=== PATIENT | male | born 1935 ===

== ENCOUNTER 2018-03-22 10:30 | Inpatient (IN) | payer MEDICARE, BC ==
[2018-03-22 14:29] VITALS: BMI 26.1
--- NOTE | 2018-03-22 15:35 | CP.CCUPN ---
CCU Subjective - Physician Review Events Since Last Encounter (Free Text): 03/22/18 15:35 The patient was Seen and examined by me at the bedside, Medical records reviewed and Management issues were discussed and formulated with the house staff. Events reviewed 82 Years old Male with PMHx of HTN, HLD, CAD s/p stent on Plavix, paraplegia due to spinal cord injury secondary to a fall many years ago and bladder outlet obstruction with abdominal pain, mainly RUQ and N/Vomiting. Who [place] [facility], he was admitted to the ICU there with Septic shock Patient had CT scan of abdomen and pelvis that show gallstones, wall thickening suspicious for cholecystitis, CBD 10-13mm, sludge or stone in the CBD. 12/19 Underwent Percutanous cholecystotomy tube placement Patient transferred to [facility] for further management of cholangitis and ERCP. Alert and oriented Breathing unlabored, on room air O2 sat 100% on 2L NC. Remains on Vasopressors with Levophed at 2.5 mcg He denies hematemesis, No fever/chills, Abd pain, melena or BRBPR. PSH: Spinal surgery, prostate laser vaporization surgery Allergies: diatrizoate Family Hx: noncontributory Social Hx: (+) smoker, no etoh or illicit drugs ROS: As per HPI 03/21/2018: Nuclear Medicine Hepatobiliary Scan TECHNIQUE: 7.6 mCi of technetium 99m Mebrofenin was administered intravenously. Planar images of the abdomen were obtained at 5 min intervals to 60 mins. Delayed images were also obtained. FINDINGS: There is hepatic uptake but there is no visualization of the gallbladder or common bile duct up to 60 minutes. There is no bowel visualization. Findings are consistent with common duct obstruction IMPRESSION: Nonvisualization of the gallbladder and common duct consistent with common duct obstruction Critical Care Time Spent (in minutes): 45 CCU Objective - Vital Signs / Intake & Output Intake and Output (Last 8hrs): Intake & Output 03/22/18 03/22/18 03/22/18 06:59 14:59 22:59 Weight 162 lb - Physical Exam Physical Exam Limitations: Positive for: Clinical Condition Head: Positive for: Atraumatic, Normocephalic Pupils: Positive for: PERRL Extroacular Muscles: Positive for: EOMI Conjunctiva: Positive for: Normal. Negative for: Injected, Icteric Ears: Positive for: Normal Mouth: Positive for: Moist Mucous Membranes Pharnyx: Positive for: Normal Nose (External): Positive for: Atraumatic Nose (Internal): Positive for: Normal Inspection Neck: Positive for: Normal Range of Motion, Trachea Midline Respiratory/Chest: Positive for: Clear to Auscultation, Good Air Exchange, Decreased Breath Sounds, Rhonchi. Negative for: Respiratory Distress, Accessory Muscle Use, Wheezes, Rales, Retracting Cardiovascular: Positive for: Regular Rate and Rhythm, Normal S1, S2. Negative for: Murmurs, Irregular Rhythm, Tachycardic, Bradycardic Abdomen: Positive for: Tenderness, Distention, Normal Bowel Sounds. Negative for: Peritoneal Signs, Rebound, Guarding Back: Negative for: CVA Tenderness Upper Extremity: Positive for: Normal Inspection, Capillary Refill < 2s. Negative for: Cyanosis, Edema Lower Extremity: Positive for: Normal Inspection, Capillary Refill < 2 s. Negative for: Edema, CALF TENDERNESS Neurological: Positive for: GCS=15, CN II-XII Intact, Speech Normal, Motor Func Grossly Intact, Normal Sensory Function Psychiatric: Positive for: Alert, Oriented x 3 Review of Systems - Review of Systems Systems not reviewed;Unavailable: Unstable Vital Signs - Constitutional Constitutional: Weakness, Malaise. absent: Fever, Chills, Sweats - Cardiovascular Cardiovascular: absent: Chest Pain, Chest Pain at Rest, Chest Pain with Activity , Claudication, Diaphoresis - Respiratory Respiratory: absent: Cough, Dyspnea, Hemoptysis, Dyspnea on Exertion, Wheezing, Snoring - Gastrointestinal Gastrointestinal: Abdominal Pain, Nausea. absent: Hematemesis, Hematochezia, Melena Critical Care Progress Note - Extremities/Vascular Does the Patient have a Central Venous Catheter?: Yes Does the Patient need a Central Venous Catheter?: Yes Does the Patient have a Mireles Catheter?: Yes Does the Patient need a Mireles Catheter?: Yes Assessment/Plan (1) Septic shock Current Visit: Yes Status: Acute Priority: High (2) Cholecystitis Current Visit: Yes Status: Acute Priority: High (3) Cholangitis Current Visit: Yes Status: Acute Priority: High - Assessment and Plan (Free Text) Assessment: Blood culture shows gram negative john. Urine culture, MRSA screen, culture wound , gallbladder fluid culture/smear pending Continue levophed/Vaso for BP support, wean as tolerated Maintain MAP 65-75 Optimize blood pressure and maintain end-organ perfusion IV Meropenem 500 mg IVBP Q 8H IVF hydration with LR at 150 cc/H Monitor urine Output Monitor renal function with basic metabolic panel Strict I&O, daily Wt PRN Tylenol for fevers PRN Dilauded for pain control ID, GI and surgery consult HIDA scan showed non visualization of gallbladder consistent with CBD obstruction Scheduled for ERCP Glycemic control HOB maintained at 30 degrees. Encouraged use of IS Maintain aspiration precautions GI/DVT PPX
--- NOTE | 2018-03-22 16:05 | CP.PCM.CON ---
History of Present Illness - History of Present Illness History of Present Illness: General Surgery Dr. Garcia 82 y/o M w/ PMHx of paraplegia s/o fall and bladder outlet obstruction presented [place] [facility] s/o abd pain, nausea, NBNB vomiting x1day. Pt diagnosed w/ sepsis 2/2 acute cholecystitis and admitted to ICU. Pt poor surgical candidate, requiring pressors for BP support. Pt underwent US-guided ifeoma tube placement by IR on 03/21. Due to continued leukocystosis and concern for ascending cholangitis, pt transferred to [facility] for ERCP. Surgery consulted for acute cholecystitis and ifeoma tube management. Pt S&E @bedside. currently denies CP, SOB, F/C, N/V, abd pain. PMHx: as listed above Meds: reviewed in chart ALL: Diatrizoate Sodium PSHx: Prostate laser vaporization, Back surgeries SHx: denies smoking/EtOH/drugs FHx: noncontributory Review of Systems - Review of Systems All systems: reviewed and no additional remarkable complaints except (see HPI) Past Patient History - Past Medical History & Family History Past Medical History?: Yes - Past Social History Smoking Status: Never Smoked - CARDIAC Hx Cardiac Disorders: Yes Hx Hypertension: Yes Hx Pacemaker: No - PULMONARY Hx Respiratory Disorders: No - NEUROLOGICAL Hx Paralysis: No - HEENT Hx HEENT Problems: No - RENAL Hx Chronic Kidney Disease: No - ENDOCRINE/METABOLIC Hx Endocrine Disorders: No - HEMATOLOGICAL/ONCOLOGICAL Hx Blood Transfusions: No Hx Blood Transfusion Reaction: No - INTEGUMENTARY Hx Dermatological Problems: No - MUSCULOSKELETAL/RHEUMATOLOGICAL Hx Musculoskeletal Disorders: Yes (SPINAL CORD INJURY) - GASTROINTESTINAL Hx Gastrointestinal Disorders: No - GENITOURINARY/GYNECOLOGICAL Hx Genitourinary Disorders: Yes Hx Urinary Tract Infection: Yes (2/2 urinary retention ) - PSYCHIATRIC Hx Emotional Abuse: No Hx Physical Abuse: No Hx Substance Use: No - SURGICAL HISTORY Hx Musculoskeletal Surgery: Yes (spinal column surgery) - ANESTHESIA Hx Anesthesia: Yes Hx Anesthesia Reactions: No Hx Malignant Hyperthermia: No Meds Allergies/Adverse Reactions: Allergies Allergy/AdvReac Type Severity Reaction Status Date / Time diatrizoate sodium Allergy Intermediate VERIFY ON Verified 06/01/17 09:50 [From Hypaque] ADM Physical Exam - Constitutional Appears: Non-toxic, No Acute Distress - Head Exam Head Exam: NORMAL INSPECTION - Eye Exam Eye Exam: Scleral icterus - ENT Exam ENT Exam: Mucous Membranes Moist - Respiratory Exam Respiratory Exam: NORMAL BREATHING PATTERN. absent: Accessory Muscle Use, Respiratory Distress - Cardiovascular Exam Cardiovascular Exam: REGULAR RHYTHM. absent: Bradycardia, Tachycardia - GI/Abdominal Exam GI & Abdominal Exam: Distended (obese), Soft. absent: Firm, Guarding, Rigid, Tenderness Additional comments: ifeoma tube in place, to gravity - Exam Additional comments: hardwick in place; draining tea-colored urine - Extremities Exam Extremities exam: Positive for: normal inspection - Neurological Exam Neurological exam: Alert, Oriented x3 - Psychiatric Exam Psychiatric exam: Normal Affect, Normal Mood - Skin Skin Exam: Dry, Intact, Warm Additional comments: jaundice Results - Imaging and Cardiology CT scan - abdomen Status: Image reviewed by me, Report reviewed by me US - abdomen Status: Image reviewed by me, Report reviewed by me HIDA Status: Image reviewed by me, Report reviewed by me Assessment & Plan - Assessment and Plan (Free Text) Assessment: 82 y/o M w/ sepsis 2/2 acute cholecytitis vs ascending cholangitis - NPO/IVF - IV Abx - titrate pressors to maintain MAP>65 - pain management - monitor drain output - f/u GI recs --> plan for ERCP Tuesday - cont medical management - no surgical intervention at this time. - surgery will continue to follow Pt discussed w/ Dr. Jose Hammond DO PGY3
[2018-03-22] MEDS ORDERED: HYDROmorphone 1 mg/ml ISec IVP PRN (16:15)
[2018-03-22] MEDS ORDERED: Lactated Ringer's 1,000 ML IV SCH (16:15)
[2018-03-22] MEDS ORDERED: Potassium Ch 20mEq in D5-1/2NS 1,000 ML IV SCH (16:45)
--- NOTE | 2018-03-22 16:49 | CP.PCM.HP ---
History of Present Illness - History of Present Illness History of Present Illness: CC: nausea and vomiting HPI: 82 year old paraplegic man (spinal cord injury), PMH CAD stents 7 years ago , HTN, hyperlipidemia presents from [facility] for ERCP, after admitted for septic shock 2/2 acute cholangitis and acute cholecystitis, currently on levophed 9 mcg R IJ CVC, cholecystostomy tube placed 2 days ago 260cc out today , on Merrem, blood cultures + gram neg rods, no sensitivities back. GI and Surgery evaluations appreciated. Pt states nausea was acute, constant, moderate , and associated with nbnb emesis at time of onset. T 98 HR 60 BP 122/47 RR 26 O2 97% on 2L NC. Continue management in ICU, plan for ERCP. Discussed with GI, patient is significantly improved clinically, however will require further stabilization prior to ERCP. Family at bedside, all questions answered. Labs today at [place]: WBC 27K no bands, trending down, platelets 91, BUN 28, tbili 3.5 trending down, AST ALT 401/560 trending down, ALP 121. Present on Admission - Present on Admission Any Indicators Present on Admission: No Past Patient History - Past Medical History & Family History Past Medical History?: Yes - Past Social History Smoking Status: Never Smoked - CARDIAC Hx Cardiac Disorders: Yes Hx Hypertension: Yes Hx Pacemaker: No - PULMONARY Hx Respiratory Disorders: No - NEUROLOGICAL Hx Paralysis: No - HEENT Hx HEENT Problems: No - RENAL Hx Chronic Kidney Disease: No - ENDOCRINE/METABOLIC Hx Endocrine Disorders: No - HEMATOLOGICAL/ONCOLOGICAL Hx Blood Transfusions: No Hx Blood Transfusion Reaction: No - INTEGUMENTARY Hx Dermatological Problems: No - MUSCULOSKELETAL/RHEUMATOLOGICAL Hx Musculoskeletal Disorders: Yes (SPINAL CORD INJURY) - GASTROINTESTINAL Hx Gastrointestinal Disorders: No - GENITOURINARY/GYNECOLOGICAL Hx Genitourinary Disorders: Yes Hx Urinary Tract Infection: Yes (2/2 urinary retention ) - PSYCHIATRIC Hx Emotional Abuse: No Hx Physical Abuse: No Hx Substance Use: No - SURGICAL HISTORY Hx Musculoskeletal Surgery: Yes (spinal column surgery) - ANESTHESIA Hx Anesthesia: Yes Hx Anesthesia Reactions: No Hx Malignant Hyperthermia: No Meds Allergies/Adverse Reactions: Allergies Allergy/AdvReac Type Severity Reaction Status Date / Time diatrizoate sodium Allergy Intermediate VERIFY ON Verified 06/01/17 09:50 [From Hypaque] ADM Physical Exam - Constitutional Appears: Non-toxic, No Acute Distress, Older Than Stated Age - Head Exam Head Exam: ATRAUMATIC, NORMOCEPHALIC - Eye Exam Eye Exam: EOMI, Normal appearance, PERRL - ENT Exam ENT Exam: Mucous Membranes Moist, Normal Exam - Respiratory Exam Respiratory Exam: Clear to Auscultation Bilateral, NORMAL BREATHING PATTERN - Cardiovascular Exam Cardiovascular Exam: REGULAR RHYTHM, +S1, +S2 - GI/Abdominal Exam GI & Abdominal Exam: Normal Bowel Sounds, Soft. absent: Organomegaly, Tenderness - Extremities Exam Extremities exam: Positive for: normal capillary refill, pedal pulses present - Back Exam Back exam: NORMAL INSPECTION. absent: rash noted - Neurological Exam Neurological exam: Alert, Oriented x3 - Psychiatric Exam Psychiatric exam: Agitated, Normal Mood - Skin Skin Exam: Dry, Normal Color, Warm Results - Vital Signs Recent Vital Signs: Last Vital Signs Temp 98.0 F 03/22/18 16:00 Pulse 60 03/22/18 16:00 Resp 26 H 03/22/18 16:00 BP 122/45 L 03/22/18 16:00 Pulse Ox 97 03/22/18 16:00 Assessment & Plan - Assessment and Plan (Free Text) Plan: 82 year old paraplegic man (spinal cord injury), PMH CAD stents 7 years ago, HTN , hyperlipidemia presents from [facility] for ERCP, after admitted for septic shock 2/2 acute cholangitis and acute cholecystitis, currently on levophed 9 mcg R IJ CVC, cholecystostomy tube placed 2 days ago 260cc out today , on Merrem, blood cultures + gram neg rods, no sensitivities back. GI and Surgery evaluations appreciated. Pt states nausea was acute, constant, moderate , and associated with nbnb emesis at time of onset. T 98 HR 60 BP 122/47 RR 26 O2 97% on 2L NC. Continue management in ICU, plan for ERCP. Discussed with GI, patient is significantly improved clinically, however will require further stabilization prior to ERCP. Family at bedside, all questions answered. Labs 03/22 at [place]: WBC 27K no bands, trending down, platelets 91, BUN 28, tbili 3.5 trending down, AST ALT 401/560 trending down, ALP 121. Septic Shock Acute Cholangitis Acute Cholecystitis Clinically appears +mild weakness, awake, alert, answering all questions appropriately On Levophed 9 mcg via R IJ CVC, will attempt to titrate down today cholecystostomy tube placed 2 days ago 260cc out today Continue Merrem blood cultures + gram neg rods, no sensitivities yet GI Dr. Sellers and Surgery evaluations appreciated. Plan for ERCP once more HD stable, likely tomorrow or Tuesday. CAD HLD holding Plavix for NPO on Heparin 5000 q8
[2018-03-22] MEDS ORDERED: Hydrocortisone- 100 MG in Sodium Chloride 0.9% 100 ML IV SCH (17:00)
[2018-03-22] MEDS: Meropenem 500 MG in Sodium Chloride 0.9% 100 ML IVPB SCH (17:51)
[2018-03-22] MEDS: Metoprolol 1 mg/ml Inj IVP SCH ×2 (17:58→23:58)
[2018-03-22 18:52] LABS: VENOUS BLOOD GAS PCO2 36 mmHg (40-60); VENOUS BLOOD GAS PO2 43 mm/Hg (30-55)
[2018-03-22 19:10] LABS: BASO % 0.1 % (0.0-2.0); EOS # 0.2 K/uL (0.0-0.7); EOS % 0.6 % (0.0-4.0); HEMOGLOBIN 10.5 g/dL (12.0-18.0); LYMPH # 1.2 K/uL (1.0-4.3); LYMPH % 4.4 % (20.0-40.0); MEAN CELL VOLUME 93.4 fl (80.0-94.0); MEAN CORPUSCULAR HEMOGLOBIN 30.8 pg (27.0-31.0); MONO # 0.9 K/uL (0.0-0.8); MONO % 3.3 % (0.0-10.0); NEUT # 25.5 K/uL (1.8-7.0); NEUT % 91.6 % (50.0-75.0); PLATELET COUNT 76 K/uL (130-400); RBC 3.42 Mil/uL (4.40-5.90); WHITE BLOOD COUNT 27.9 K/uL (4.8-10.8)
[2018-03-22 19:32] LABS: ALB/GLOB RATIO 0.9 (1.0-2.1); ALBUMIN 2.4 g/dL (3.5-5.0); ALT/SGPT 416 U/L (21-72); AST/SGOT 232 U/L (17-59); BLOOD UREA NITROGEN 30 mg/dl (9-20); CALCIUM 7.8 mg/dL (8.4-10.2); GFR NON-AFRICAN AMERICAN > 60
[2018-03-22] MEDS: Potassium CL 10 MEQ/50 ML 50 ML IVPB SCH ×3 (20:03→22:40)
--- NOTE | 2018-03-22 20:03 | CP.PCM.PCO ---
Physician Communication Note - Physician Communication Note Physician Communication Note: Sub Q Heparin held because of Progressive decreasing platelets now 76.
[2018-03-22 21:45] LABS: BANDS 5 % (0-2); EOSINOPHIL 1 % (0-7); LYMPHOCYTE 8 % (20-50); MONOCYTE 5 % (0-10); NEUTROPHIL 81 % (42-75); PLATELET ESTIMATE DECREASED (NORMAL); TOTAL CELLS COUNTED 100
[2018-03-22 21:46] LABS: ANISOCYTOSIS MODERATE; POIKILOCYTOSIS SLIGHT; POLYCHROMIC SLIGHT; TARGET CELLS SLIGHT
[2018-03-22 21:47] LABS: TOXIC GRANULATION PRESENT
[2018-03-22] MEDS: Potassium Ch 20mEq in D5-1/2NS 1,000 ML IV SCH (22:45)
[2018-03-23] MEDS: Meropenem 1 GM in Sodium Chloride 0.9% 100 ML IVPB SCH ×3 (00:07→17:34)
[2018-03-23] MEDS: Potassium Ch 20mEq in D5-1/2NS 1,000 ML IV SCH ×3 (04:15→19:30)
[2018-03-23 05:15] LABS: EOS # 0.6 K/uL (0.0-0.7); EOS % 1.8 % (0.0-4.0); HEMOGLOBIN 10.4 g/dL (12.0-18.0); LYMPH # 0.9 K/uL (1.0-4.3); LYMPH % 2.6 % (20.0-40.0); MEAN CELL VOLUME 92.4 fl (80.0-94.0); MEAN CORPUSCULAR HEMOGLOBIN 30.7 pg (27.0-31.0); MEAN CORPUSCULAR HGB CONC 33.2 g/dL (33.0-37.0); MEAN PLATELET VOLUME 10.7 fl (7.2-11.7); MONO # 0.7 K/uL (0.0-0.8); NEUT # 31.2 K/uL (1.8-7.0); NEUT % 93.6 % (50.0-75.0); PLATELET COUNT 67 K/uL (130-400); RBC 3.39 Mil/uL (4.40-5.90); RED CELL DISTRIBUTION WIDTH 14.9 % (11.5-14.5); WHITE BLOOD COUNT 33.3 K/uL (4.8-10.8)
[2018-03-23 05:54] LABS: BANDS 7 % (0-2); LYMPHOCYTE 3 % (20-50); METAMYELOCYTE 2 % (0-0); MONOCYTE 2 % (0-10); NEUTROPHIL 86 % (42-75); TOTAL CELLS COUNTED 100
[2018-03-23 05:55] LABS: ANISOCYTOSIS SLIGHT; PLATELET ESTIMATE DECREASED (NORMAL)
[2018-03-23 07:00] LABS: ALB/GLOB RATIO 0.9 (1.0-2.1); ALBUMIN 2.4 g/dL (3.5-5.0); ALT/SGPT 356 U/L (21-72); AST/SGOT 158 U/L (17-59); BLOOD UREA NITROGEN 29 mg/dl (9-20); CALCIUM 7.5 mg/dL (8.4-10.2); GFR NON-AFRICAN AMERICAN > 60
--- NOTE | 2018-03-23 07:53 | CP.PCM.PN ---
Subjective - Date & Time of Evaluation Date of Evaluation: 03/23/18 Time of Evaluation: 07:51 - Subjective Subjective: General Surgery - Dr. Garcia Pt S&E. Pt had episode of bradycardia after being given Metoprolol overnight, otherwise no acute events. HR currently stable in upper 60s. MAPs in 90s currently, still on 2.5mcg Levophed. Pt complains of RUQ abdominal pain but improving. Ifeoma tube in place with serosanguinous drainage. Pt denies any Nausea/Vomiting, Fevers/Chills. Objective - Vital Signs/Intake and Output Vital Signs (last 24 hours): Temp Pulse Resp BP Pulse Ox 98.2 F 60 18 127/65 97 03/23/18 05:00 03/23/18 05:58 03/23/18 05:58 03/23/18 05:58 03/23/18 05:58 Intake and Output: 03/23/18 03/23/18 06:59 18:59 Intake Total 2522 Output Total 430 Balance 2092 - Medications Medications: Current Medications Acetaminophen (Tylenol 325mg Tab) 650 mg PO Q8 PRN PRN Reason: Fever >100.4 F Albuterol/Ipratropium (Duoneb 3 Mg/0.5 Mg (3 Ml) Ud) 3 ml INH RQID PRN PRN Reason: Shortness of Breath Hydrocortisone Sodium Succinate (Solu-Cortef) 100 mg IV Q8 [facility] Last Admin: 03/23/18 00:02 Dose: 100 mg Hydromorphone HCl (Dilaudid) 0.5 mg IVP Q4 PRN PRN Reason: Pain, moderate (4-7) Norepinephrine Bitartrate 4 mg (/ Dextrose) 254 mls @ 9.52 mls/hr IV .Q24H [facility] ; 2.5 MCG/MIN PRN Reason: Protocol Last Admin: 03/22/18 20:25 Dose: 2.49 mcg/min, 9.48 mls/hr Meropenem 500 mg/ Sodium (Chloride) 100 mls @ 100 mls/hr IVPB Q8 [facility] PRN Reason: Protocol Last Admin: 03/22/18 17:51 Dose: 100 mls/hr Potassium Chloride/Dextrose/Sod Cl (Potassium Chl 20 Meq In D5-1/2ns) 1,000 mls @ 150 mls/hr IV .Q6H40M [facility] Stop: 03/23/18 16:43 Last Admin: 03/23/18 04:15 Dose: 150 mls/hr Meropenem 1 gm/ Sodium (Chloride) 100 mls @ 100 mls/hr IVPB Q8 [facility] PRN Reason: Protocol Last Admin: 03/23/18 00:07 Dose: 100 mls/hr Metoprolol Tartrate (Lopressor) 5 mg IVP Q8 [facility] Last Admin: 03/22/18 23:58 Dose: 5 mg Ondansetron HCl (Zofran Inj) 4 mg IVP Q6 PRN PRN Reason: Nausea/Vomiting Pantoprazole Sodium (Protonix Inj) 40 mg IVP DAILY [facility] Last Admin: 03/22/18 18:08 Dose: Not Given - Labs Labs: 03/23/18 04:20 03/23/18 04:20 - Constitutional Appears: No Acute Distress - Head Exam Head Exam: ATRAUMATIC, NORMAL INSPECTION, NORMOCEPHALIC - Eye Exam Eye Exam: Normal appearance - Respiratory Exam Respiratory Exam: NORMAL BREATHING PATTERN. absent: Respiratory Distress - Cardiovascular Exam Cardiovascular Exam: REGULAR RHYTHM - GI/Abdominal Exam GI & Abdominal Exam: Distended (mild), Soft, Tenderness (mild ttp RUQ). absent : Firm, Guarding, Rigid, Rebound Additional comments: ifeoma tube in place with serosanguinous drainage - Neurological Exam Neurological Exam: Alert, Oriented x3 - Psychiatric Exam Psychiatric exam: Normal Affect, Normal Mood - Skin Skin Exam: Dry, Intact Assessment and Plan - Assessment and Plan (Free Text) Assessment: 82M w/ acute cholecytitis, concern for ascending cholangitis - Continue NPO/IVF, may have ice chips - Continue IV Abx - Wean off Levophed, maintain MAP>65 - Continue pain control prn - Monitor drain output - GI plan for ERCP Tuesday - Will follow with you, no plans for surgery at this time DW Dr. Jose Lara PGY4
[2018-03-23] MEDS: Meropenem 500 MG in Sodium Chloride 0.9% 100 ML IVPB SCH (08:24)
[2018-03-23] MEDS: Albuterol-Ipratrop 3 mg / 0.5 (3 ml) UD INH PRN (08:30)
--- NOTE | 2018-03-23 10:23 | CP.PCM.PN ---
Subjective - Date & Time of Evaluation Date of Evaluation: 03/23/18 Time of Evaluation: 10:21 - Subjective Subjective: clinically improving this morning decreased pressor requirement HD stable Plt trending down, hold heparin micro +gram pos cocci and gram neg rods, added vanco discontinue steroids Objective - Vital Signs/Intake and Output Vital Signs (last 24 hours): Temp Pulse Resp BP Pulse Ox 98.2 F 60 18 127/65 97 03/23/18 05:00 03/23/18 08:30 03/23/18 05:58 03/23/18 05:58 03/23/18 05:58 Intake and Output: 03/23/18 03/23/18 06:59 18:59 Intake Total 2522 Output Total 430 Balance 2092 - Medications Medications: Current Medications Acetaminophen (Tylenol 325mg Tab) 650 mg PO Q8 PRN PRN Reason: Fever >100.4 F Albuterol/Ipratropium (Duoneb 3 Mg/0.5 Mg (3 Ml) Ud) 3 ml INH RQID PRN PRN Reason: Shortness of Breath Last Admin: 03/23/18 08:30 Dose: 3 ml Hydromorphone HCl (Dilaudid) 0.5 mg IVP Q4 PRN PRN Reason: Pain, moderate (4-7) Norepinephrine Bitartrate 4 mg (/ Dextrose) 254 mls @ 9.52 mls/hr IV .Q24H [facility] ; 2.5 MCG/MIN PRN Reason: Protocol Last Admin: 03/22/18 20:25 Dose: 2.49 mcg/min, 9.48 mls/hr Potassium Chloride/Dextrose/Sod Cl (Potassium Chl 20 Meq In D5-1/2ns) 1,000 mls @ 150 mls/hr IV .Q6H40M [facility] Stop: 03/23/18 16:43 Last Admin: 03/23/18 04:15 Dose: 150 mls/hr Meropenem 1 gm/ Sodium (Chloride) 100 mls @ 100 mls/hr IVPB Q8 [facility] PRN Reason: Protocol Last Admin: 03/23/18 08:17 Dose: 100 mls/hr Vancomycin HCl 1 gm/ Sodium (Chloride) 250 mls @ 166.667 mls/hr IVPB DAILY [facility] PRN Reason: Protocol Ondansetron HCl (Zofran Inj) 4 mg IVP Q6 PRN PRN Reason: Nausea/Vomiting Pantoprazole Sodium (Protonix Inj) 40 mg IVP DAILY [facility] Last Admin: 03/23/18 08:25 Dose: 40 mg - Labs Labs: 03/23/18 04:20 03/23/18 04:20 - Constitutional Appears: Non-toxic, No Acute Distress - Head Exam Head Exam: ATRAUMATIC, NORMOCEPHALIC - Eye Exam Eye Exam: EOMI, Normal appearance, PERRL - ENT Exam ENT Exam: Mucous Membranes Moist, Normal Exam - Respiratory Exam Respiratory Exam: Clear to Ausculation Bilateral, NORMAL BREATHING PATTERN. absent: Wheezes - Cardiovascular Exam Cardiovascular Exam: RRR, +S1, +S2 - GI/Abdominal Exam GI & Abdominal Exam: Soft, Normal Bowel Sounds. absent: Organomegaly - Extremities Exam Extremities Exam: Normal Inspection. absent: Calf Tenderness - Back Exam Back Exam: NORMAL INSPECTION. absent: tenderness - Neurological Exam Neurological Exam: Alert, Awake - Psychiatric Exam Psychiatric exam: Normal Affect, Normal Mood - Skin Skin Exam: Dry, Warm Assessment and Plan - Assessment and Plan (Free Text) Plan: 82 year old paraplegic man (spinal cord injury), PMH CAD stents 7 years ago, HTN , hyperlipidemia presents from [facility] for ERCP, after admitted for septic shock 2/2 acute cholangitis and acute cholecystitis, currently on levophed 9 mcg R IJ CVC, cholecystostomy tube placed 2 days ago 260cc out today , on Merrem, blood cultures + gram neg rods, no sensitivities back. GI and Surgery evaluations appreciated. Pt states nausea was acute, constant, moderate , and associated with nbnb emesis at time of onset. T 98 HR 60 BP 122/47 RR 26 O2 97% on 2L NC. Continue management in ICU, plan for ERCP. Discussed with GI, patient is significantly improved clinically, however will require further stabilization prior to ERCP. Family at bedside, all questions answered. Septic Shock Acute Cholangitis Acute Cholecystitis Clinically appears improving +mild weakness, awake, alert, answering all questions appropriately On Levophed at 2 mcg from 9 yesterday, hopefully titrate off today cholecystostomy tube placed 3 days ago Continue Merrem 1 gm blood cultures + gram neg rods AND gram positive cocci, ADD VANCOMYCIN today GI Dr. Sellers and Surgery evaluations appreciated. Plan for ERCP once more HD stable, likely tomorrow pt type and cross 1 unit NPO on maintenance fluids Leukocytosis w L shift secondary to stress dose steroids for sepsis d/c hydrocortisone, no further indication Thrombocytopenia possibly secondary to meds vs sequestration vs sepsis monitor transfuse if <49 tomorrow prior to ERCP discussed with GI Elevated transaminases Hyperbilirubinemia trending down, improving CAD HLD holding Plavix for NPO no heparin for DVT 2/2 thrombocytopenia
--- NOTE | 2018-03-23 10:45 | CP.CCUPN ---
<Tj Perez - Last Filed: 03/23/18 14:39> CCU Subjective - Physician Review Subjective (Free Text): Patient seen and examined this morning at bed side during rounding, transient episode of bradycardia last night after being given Metoprolol overnight, otherwise no acute events. HR currently stable in upper 60s. still on 2.5mcg Levophed. Pt complains of RUQ abdominal pain but less than yesterday. Margareth tube in place with serosanguinous drainage. Pt denies any Nausea/ Vomiting. Afebrile. For ERCP likely tomorrow CCU Objective - Vital Signs / Intake & Output Vital Signs (Last 4 hours): Vital Signs Temp Pulse Resp BP Pulse Ox 03/23/18 10:00 55 L 17 117/48 L 97 03/23/18 09:00 63 15 113/55 L 98 03/23/18 08:30 60 03/23/18 08:00 97.9 F 64 14 126/57 L 97 Intake and Output (Last 8hrs): Intake & Output 03/22/18 03/23/18 03/23/18 22:59 06:59 14:59 Intake Total 1724 1548 750 Output Total 350 430 200 Balance 1374 1118 550 Intake: IV 1424 1350 600 Intake, Piggyback 250 198 150 Oral 50 0 Output: Drainage 50 30 Right Upper Abdomen 50 30 Urine 300 400 200 Urethral (Mireles) 300 400 200 Other: # Bowel Movements 1 1 1 - Physical Exam Head: Positive for: Atraumatic, Normocephalic Pupils: Positive for: PERRL Extroacular Muscles: Positive for: EOMI Conjunctiva: Positive for: Normal. Negative for: Injected, Icteric Ears: Positive for: Normal Mouth: Positive for: Moist Mucous Membranes Pharnyx: Positive for: Normal Nose (External): Positive for: Atraumatic Nose (Internal): Positive for: Normal Inspection Neck: Positive for: Normal Range of Motion, Trachea Midline Respiratory/Chest: Positive for: Clear to Auscultation, Good Air Exchange, Decreased Breath Sounds, Rhonchi. Negative for: Respiratory Distress, Accessory Muscle Use, Wheezes, Rales, Retracting Cardiovascular: Positive for: Regular Rate and Rhythm, Normal S1, S2. Negative for: Murmurs, Irregular Rhythm, Tachycardic, Bradycardic Abdomen: Positive for: Tenderness, Distention, Normal Bowel Sounds. Negative for: Peritoneal Signs, Rebound, Guarding Back: Negative for: CVA Tenderness Upper Extremity: Positive for: Normal Inspection, Capillary Refill < 2s. Negative for: Cyanosis, Edema Lower Extremity: Positive for: Normal Inspection, Capillary Refill < 2 s. Negative for: Edema, CALF TENDERNESS Neurological: Positive for: GCS=15, CN II-XII Intact, Speech Normal, Motor Func Grossly Intact, Normal Sensory Function Psychiatric: Positive for: Alert, Oriented x 3 - Medications Active Medications: Active Medications Generic Name Dose Route Start Last Admin Trade Name Freq PRN Reason Stop Dose Admin Acetaminophen 650 mg 03/22/18 16:24 Tylenol 325mg Tab PO Q8 PRN Fever >100.4 F Albuterol/Ipratropium 3 ml 03/22/18 16:25 03/23/18 08:30 Duoneb 3 Mg/0.5 Mg (3 Ml) Ud INH 3 ml RQID PRN Administration Shortness of Breath Hydromorphone HCl 0.5 mg 03/22/18 16:15 Dilaudid IVP Q4 PRN Pain, moderate (4-7) Norepinephrine Bitartrate 4 mg 254 mls @ 9.52 mls/hr 03/22/18 16:30 03/22/18 20:25 / Dextrose IV 2.49 mcg/min .Q24H MARQUIS 9.48 mls/hr Protocol Administration 2.5 MCG/MIN Potassium Chloride/Dextrose/Sod Cl 1,000 mls @ 150 mls/hr 03/22/18 18:56 04:15 Potassium Chl 20 Meq In D5-1/2ns IV 03/23/18 16:43 150 mls/hr .Q6H40M MARQUIS Administration Meropenem 1 gm/ Sodium 100 mls @ 100 mls/hr 03/23/18 01:00 03/23/18 08:17 Chloride IVPB 100 mls/hr Q8 MARQUIS Administration Protocol Vancomycin HCl 1 gm/ Sodium 250 mls @ 166.667 mls/hr 03/23/18 10:15 Chloride IVPB DAILY MARQUIS Protocol Ondansetron HCl 4 mg 03/22/18 16:25 Zofran Inj IVP Q6 PRN Nausea/Vomiting Pantoprazole Sodium 40 mg 03/22/18 16:15 03/23/18 08:25 Protonix Inj IVP 40 mg DAILY MARQUIS Administration - Patient Studies Lab Studies: Lab Studies 03/23/18 03/23/18 03/22/18 Range/Units 04:20 04:20 19:04 WBC 33.3 H (4.8-10.8) K/uL RBC 3.39 L (4.40-5.90) Mil/uL Hgb 10.4 L (12.0-18.0) g/dL Hct 31.3 L (35.0-51.0) % MCV 92.4 (80.0-94.0) fl MCH 30.7 (27.0-31.0) pg MCHC 33.2 (33.0-37.0) g/dL RDW 14.9 H (11.5-14.5) % Plt Count 67 L (130-400) K/uL MPV 10.7 (7.2-11.7) fl Neut % (Auto) 93.6 H (50.0-75.0) % Lymph % (Auto) 2.6 L (20.0-40.0) % [place] % (Auto) 2.0 (0.0-10.0) % Eos % (Auto) 1.8 (0.0-4.0) % Baso % (Auto) 0.0 (0.0-2.0) % Neut # (Auto) 31.2 H (1.8-7.0) K/uL Lymph # (Auto) 0.9 L (1.0-4.3) K/uL [place] # (Auto) 0.7 (0.0-0.8) K/uL Eos # (Auto) 0.6 (0.0-0.7) K/uL Baso # (Auto) 0.0 (0.0-0.2) K/uL Neutrophils % (Manual) 86 H (42-75) % Band Neutrophils % 7 H (0-2) % Lymphocytes % (Manual) 3 L (20-50) % Monocytes % (Manual) 2 (0-10) % Eosinophils % (Manual) (0-7) % Metamyelocytes % 2 H (0-0) % Toxic Granulation Platelet Estimate Decreased L (NORMAL) Polychromasia Poikilocytosis (manual Anisocytosis (manual) Slight Target Cells pO2 (30-55) mm/Hg VBG pH (7.32-7.43) VBG pCO2 (40-60) mmHg VBG HCO3 mmol/L VBG Total CO2 (22-28) mmol/L VBG O2 Sat (Calc) (40-65) % VBG Base Excess (0.0-2.0) mmol/L VBG Potassium (3.6-5.2) mmol/L Sodium 140 140 (132-148) mmol/L Chloride 111 H 112 H (98-107) mmol/L Glucose (75-110) mg/dL Lactate (0.7-2.1) mmol/L FiO2 % Potassium 3.9 3.3 L (3.6-5.0) MMOL/L Carbon Dioxide 23 23 (22-30) mmol/L Anion Gap 10 8 L (10-20) BUN 29 H 30 H (9-20) mg/dl Creatinine 0.6 L 0.7 L (0.8-1.5) mg/dl Est GFR ( Amer) > 60 > 60 Est GFR (Non-Af Amer) > 60 > 60 Random Glucose 194 H 76 (75-110) mg/dL Calcium 7.5 L 7.8 L (8.4-10.2) mg/dL Phosphorus 1.7 L (2.5-4.5) mg/dl Magnesium 2.0 (1.6-2.3) MG/DL Total Bilirubin 1.9 H 2.3 H (0.2-1.3) mg/dl AST 158 H D 232 H D (17-59) U/L ALT 356 H 416 H (21-72) U/L Alkaline Phosphatase 146 H D 117 (38-126) U/L Total Protein 4.9 L 4.9 L (6.3-8.2) G/DL Albumin 2.4 L 2.4 L (3.5-5.0) g/dL Globulin 2.5 2.5 (2.2-3.9) gm/dL Albumin/Globulin Ratio 0.9 L 0.9 L (1.0-2.1) Venous Blood Potassium (3.6-5.2) mmol/L 03/22/18 03/22/18 Range/Units 19:04 18:50 WBC 27.9 H (4.8-10.8) K/uL RBC 3.42 L (4.40-5.90) Mil/uL Hgb 10.5 L (12.0-18.0) g/dL Hct 31.9 L (35.0-51.0) % MCV 93.4 (80.0-94.0) fl MCH 30.8 (27.0-31.0) pg MCHC 33.0 (33.0-37.0) g/dL RDW 15.0 H (11.5-14.5) % Plt Count 76 L (130-400) K/uL MPV 10.0 (7.2-11.7) fl Neut % (Auto) 91.6 H (50.0-75.0) % Lymph % (Auto) 4.4 L (20.0-40.0) % [place] % (Auto) 3.3 (0.0-10.0) % Eos % (Auto) 0.6 (0.0-4.0) % Baso % (Auto) 0.1 (0.0-2.0) % Neut # (Auto) 25.5 H (1.8-7.0) K/uL Lymph # (Auto) 1.2 (1.0-4.3) K/uL [place] # (Auto) 0.9 H (0.0-0.8) K/uL Eos # (Auto) 0.2 (0.0-0.7) K/uL Baso # (Auto) 0.0 (0.0-0.2) K/uL Neutrophils % (Manual) 81 H (42-75) % Band Neutrophils % 5 H (0-2) % Lymphocytes % (Manual) 8 L (20-50) % Monocytes % (Manual) 5 (0-10) % Eosinophils % (Manual) 1 (0-7) % Metamyelocytes % (0-0) % Toxic Granulation Present Platelet Estimate Decreased L (NORMAL) Polychromasia Slight Poikilocytosis (manual Slight Anisocytosis (manual) Moderate Target Cells Slight pO2 43 (30-55) mm/Hg VBG pH 7.40 (7.32-7.43) VBG pCO2 36 L (40-60) mmHg VBG HCO3 22.9 mmol/L VBG Total CO2 23.4 (22-28) mmol/L VBG O2 Sat (Calc) 58.5 (40-65) % VBG Base Excess -2.0 L (0.0-2.0) mmol/L VBG Potassium 3.1 L (3.6-5.2) mmol/L Sodium 140.0 (132-148) mmol/L Chloride 108.0 H (98-107) mmol/L Glucose 76 (75-110) mg/dL Lactate 2.4 H (0.7-2.1) mmol/L FiO2 21.0 % Potassium (3.6-5.0) MMOL/L Carbon Dioxide (22-30) mmol/L Anion Gap (10-20) BUN (9-20) mg/dl Creatinine (0.8-1.5) mg/dl Est GFR ( Amer) Est GFR (Non-Af Amer) Random Glucose (75-110) mg/dL Calcium (8.4-10.2) mg/dL Phosphorus (2.5-4.5) mg/dl Magnesium (1.6-2.3) MG/DL Total Bilirubin (0.2-1.3) mg/dl AST (17-59) U/L ALT (21-72) U/L Alkaline Phosphatase (38-126) U/L Total Protein (6.3-8.2) G/DL Albumin (3.5-5.0) g/dL Globulin (2.2-3.9) gm/dL Albumin/Globulin Ratio (1.0-2.1) Venous Blood Potassium 3.1 L (3.6-5.2) mmol/L Laboratory Results - last 24 hr 03/22/18 03/22/18 03/22/18 18:50 19:04 19:04 WBC 27.9 H RBC 3.42 L Hgb 10.5 L Hct 31.9 L MCV 93.4 MCH 30.8 MCHC 33.0 RDW 15.0 H Plt Count 76 L MPV 10.0 Neut % (Auto) 91.6 H Lymph % (Auto) 4.4 L [place] % (Auto) 3.3 Eos % (Auto) 0.6 Baso % (Auto) 0.1 Neut # (Auto) 25.5 H Lymph # (Auto) 1.2 [place] # (Auto) 0.9 H Eos # (Auto) 0.2 Baso # (Auto) 0.0 Neutrophils % (Manual) 81 H Band Neutrophils % 5 H Lymphocytes % (Manual) 8 L Monocytes % (Manual) 5 Eosinophils % (Manual) 1 Metamyelocytes % Toxic Granulation Present Platelet Estimate Decreased L Polychromasia Slight Poikilocytosis (manual Slight Anisocytosis (manual) Moderate Target Cells Slight pO2 43 VBG pH 7.40 VBG pCO2 36 L VBG HCO3 22.9 VBG Total CO2 23.4 VBG O2 Sat (Calc) 58.5 VBG Base Excess -2.0 L VBG Potassium 3.1 L Sodium 140.0 140 Chloride 108.0 H 112 H Glucose 76 Lactate 2.4 H FiO2 21.0 Potassium 3.3 L Carbon Dioxide 23 Anion Gap 8 L BUN 30 H Creatinine 0.7 L Est GFR ( Amer) > 60 Est GFR (Non-Af Amer) > 60 Random Glucose 76 Calcium 7.8 L Phosphorus Magnesium Total Bilirubin 2.3 H AST 232 H D ALT 416 H Alkaline Phosphatase 117 Total Protein 4.9 L Albumin 2.4 L Globulin 2.5 Albumin/Globulin Ratio 0.9 L Venous Blood Potassium 3.1 L 03/23/18 03/23/18 04:20 04:20 WBC 33.3 H RBC 3.39 L Hgb 10.4 L Hct 31.3 L MCV 92.4 MCH 30.7 MCHC 33.2 RDW 14.9 H Plt Count 67 L MPV 10.7 Neut % (Auto) 93.6 H Lymph % (Auto) 2.6 L [place] % (Auto) 2.0 Eos % (Auto) 1.8 Baso % (Auto) 0.0 Neut # (Auto) 31.2 H Lymph # (Auto) 0.9 L [place] # (Auto) 0.7 Eos # (Auto) 0.6 Baso # (Auto) 0.0 Neutrophils % (Manual) 86 H Band Neutrophils % 7 H Lymphocytes % (Manual) 3 L Monocytes % (Manual) 2 Eosinophils % (Manual) Metamyelocytes % 2 H Toxic Granulation Platelet Estimate Decreased L Polychromasia Poikilocytosis (manual Anisocytosis (manual) Slight Target Cells pO2 VBG pH VBG pCO2 VBG HCO3 VBG Total CO2 VBG O2 Sat (Calc) VBG Base Excess VBG Potassium Sodium 140 Chloride 111 H Glucose Lactate FiO2 Potassium 3.9 Carbon Dioxide 23 Anion Gap 10 BUN 29 H Creatinine 0.6 L Est GFR ( Amer) > 60 Est GFR (Non-Af Amer) > 60 Random Glucose 194 H Calcium 7.5 L Phosphorus 1.7 L Magnesium 2.0 Total Bilirubin 1.9 H AST 158 H D ALT 356 H Alkaline Phosphatase 146 H D Total Protein 4.9 L Albumin 2.4 L Globulin 2.5 Albumin/Globulin Ratio 0.9 L Venous Blood Potassium Critical Care Progress Note - Nutrition Nutrition: Nutrition Category Date Time Status Liquid Diet [DIET] Diets 03/23/18 Breakfast Ordered Assessment/Plan - Assessment and Plan (Free Text) Assessment: 82 year old patient with h/o spinal cord injury, PMH CAD stents 7 years ago, HTN , hyperlipidemia admitted for septic shock 2/2 acute cholangitis and acute cholecystitis, currently on levophed 2 mcg R IJ CVC, cholecystostomy tube placed 2 days ago 260cc out today. Continue management in ICU, plan for ERCP most likely tomorrow. 1) Septic Shock Acute Cholangitis; Acute Cholecystitis Levophed weaned to 2 mcg from 9 yesterday, hopefully titrate off today cholecystostomy tube 3rd day Afebrile Continue Merrem 1 gm Blood cultures + gram neg rods AND gram positive cocci, -vancomycin added today as per primary team GI Dr. Sellers and Surgery input appreciated. Plan for ERCP, likely tomorrow Clears today, NPO after midnight urine culture, MRSA and wound culture still pending Echo pending official report. 2) Leukocytosis w L shift likely secondary to stress dose steroids for sepsis d/c hydrocortisone, no further indication 3) Thrombocytopenia likely secondary to meds vs sequestration vs sepsis will monitor transfuse if <49 tomorrow prior to ERCP discussed with GI 4) Elevated transaminases Hyperbilirubinemia trending down, improving 5) CAD holding Plavix pending surgery 6) DVT prophylaxis no heparin for 2/2 thrombocytopenia Will restart on Tuesday after procedure. <Pacheco Holt - Last Filed: 03/23/18 17:06> CCU Objective - Vital Signs / Intake & Output Vital Signs (Last 4 hours): Vital Signs Temp Pulse Resp BP Pulse Ox 03/23/18 16:00 97.6 F 59 L 16 104/62 96 Intake and Output (Last 8hrs): Intake & Output 0803/23/18 03/23/18 06:59 14:59 22:59 Intake Total 1548 750 Output Total 430 200 Balance 1118 550 Intake: IV 1350 600 Intake, Piggyback 198 150 Oral 0 Output: Drainage 30 Right Upper Abdomen 30 Urine 400 200 Urethral (Mireles) 400 200 Other: # Bowel Movements 1 1 - Medications Active Medications: Active Medications Generic Name Dose Route Start Last Admin Trade Name Freq PRN Reason Stop Dose Admin Acetaminophen 650 mg 03/22/18 16:24 Tylenol 325mg Tab PO Q8 PRN Fever >100.4 F Albuterol/Ipratropium 3 ml 03/22/18 16:25 03/23/18 08:30 Duoneb 3 Mg/0.5 Mg (3 Ml) Ud INH 3 ml RQID PRN Administration Shortness of Breath Hydromorphone HCl 0.5 mg 03/22/18 16:15 Dilaudid IVP Q4 PRN Pain, moderate (4-7) Meropenem 1 gm/ Sodium 100 mls @ 100 mls/hr 03/23/18 01:00 03/23/18 08:17 Chloride IVPB 100 mls/hr Q8 MARQUIS Administration Protocol Vancomycin HCl 1 gm/ Sodium 250 mls @ 166.667 mls/hr 03/23/18 10:15 03/23/18 11:45 Chloride IVPB 166.667 mls/hr DAILY MARQUIS Administration Protocol Indomethacin 100 mg 03/24/18 12:00 Indocin Suppository GA 03/24/18 12:01 ONCE ONE Ondansetron HCl 4 mg 03/22/18 16:25 Zofran Inj IVP Q6 PRN Nausea/Vomiting Pantoprazole Sodium 40 mg 03/22/18 16:15 03/23/18 08:25 Protonix Inj IVP 40 mg DAILY MARQUIS Administration - Patient Studies Lab Studies: Lab Studies 03/23/18 03/23/18 03/23/18 Range/Units 11:38 11:14 10:40 WBC (4.8-10.8) K/uL RBC (4.40-5.90) Mil/uL Hgb (12.0-18.0) g/dL Hct (35.0-51.0) % MCV (80.0-94.0) fl MCH (27.0-31.0) pg MCHC (33.0-37.0) g/dL RDW (11.5-14.5) % Plt Count (130-400) K/uL MPV (7.2-11.7) fl Neut % (Auto) (50.0-75.0) % Lymph % (Auto) (20.0-40.0) % [place] % (Auto) (0.0-10.0) % Eos % (Auto) (0.0-4.0) % Baso % (Auto) (0.0-2.0) % Neut # (Auto) (1.8-7.0) K/uL Lymph # (Auto) (1.0-4.3) K/uL [place] # (Auto) (0.0-0.8) K/uL Eos # (Auto) (0.0-0.7) K/uL Baso # (Auto) (0.0-0.2) K/uL Neutrophils % (Manual) (42-75) % Band Neutrophils % (0-2) % Lymphocytes % (Manual) (20-50) % Monocytes % (Manual) (0-10) % Eosinophils % (Manual) (0-7) % Metamyelocytes % (0-0) % Toxic Granulation Platelet Estimate (NORMAL) Polychromasia Poikilocytosis (manual Anisocytosis (manual) Target Cells PT 14.7 H (9.8-13.1) Seconds INR 1.3 pO2 (30-55) mm/Hg VBG pH (7.32-7.43) VBG pCO2 (40-60) mmHg VBG HCO3 mmol/L VBG Total CO2 (22-28) mmol/L VBG O2 Sat (Calc) (40-65) % VBG Base Excess (0.0-2.0) mmol/L VBG Potassium (3.6-5.2) mmol/L Sodium (132-148) mmol/L Chloride (98-107) mmol/L Glucose (75-110) mg/dL Lactate (0.7-2.1) mmol/L FiO2 % Potassium (3.6-5.0) MMOL/L Carbon Dioxide (22-30) mmol/L Anion Gap (10-20) BUN (9-20) mg/dl Creatinine (0.8-1.5) mg/dl Est GFR ( Amer) Est GFR (Non-Af Amer) Random Glucose (75-110) mg/dL Calcium (8.4-10.2) mg/dL Phosphorus (2.5-4.5) mg/dl Magnesium (1.6-2.3) MG/DL Total Bilirubin (0.2-1.3) mg/dl AST (17-59) U/L ALT (21-72) U/L Alkaline Phosphatase (38-126) U/L Total Protein (6.3-8.2) G/DL Albumin (3.5-5.0) g/dL Globulin (2.2-3.9) gm/dL Albumin/Globulin Ratio (1.0-2.1) Venous Blood Potassium (3.6-5.2) mmol/L Blood Type O POSITIVE Blood Type Confirm O POSITIVE Antibody Screen Negative Crossmatch See Detail BBK History Checked No verified bt 03/23/18 03/23/18 03/22/18 Range/Units 04:20 04:20 19:04 WBC 33.3 H (4.8-10.8) K/uL RBC 3.39 L (4.40-5.90) Mil/uL Hgb 10.4 L (12.0-18.0) g/dL Hct 31.3 L (35.0-51.0) % MCV 92.4 (80.0-94.0) fl MCH 30.7 (27.0-31.0) pg MCHC 33.2 (33.0-37.0) g/dL RDW 14.9 H (11.5-14.5) % Plt Count 67 L (130-400) K/uL MPV 10.7 (7.2-11.7) fl Neut % (Auto) 93.6 H (50.0-75.0) % Lymph % (Auto) 2.6 L (20.0-40.0) % [place] % (Auto) 2.0 (0.0-10.0) % Eos % (Auto) 1.8 (0.0-4.0) % Baso % (Auto) 0.0 (0.0-2.0) % Neut # (Auto) 31.2 H (1.8-7.0) K/uL Lymph # (Auto) 0.9 L (1.0-4.3) K/uL [place] # (Auto) 0.7 (0.0-0.8) K/uL Eos # (Auto) 0.6 (0.0-0.7) K/uL Baso # (Auto) 0.0 (0.0-0.2) K/uL Neutrophils % (Manual) 86 H (42-75) % Band Neutrophils % 7 H (0-2) % Lymphocytes % (Manual) 3 L (20-50) % Monocytes % (Manual) 2 (0-10) % Eosinophils % (Manual) (0-7) % Metamyelocytes % 2 H (0-0) % Toxic Granulation Platelet Estimate Decreased L (NORMAL) Polychromasia Poikilocytosis (manual Anisocytosis (manual) Slight Target Cells PT (9.8-13.1) Seconds INR pO2 (30-55) mm/Hg VBG pH (7.32-7.43) VBG pCO2 (40-60) mmHg VBG HCO3 mmol/L VBG Total CO2 (22-28) mmol/L VBG O2 Sat (Calc) (40-65) % VBG Base Excess (0.0-2.0) mmol/L VBG Potassium (3.6-5.2) mmol/L Sodium 140 140 (132-148) mmol/L Chloride 111 H 112 H (98-107) mmol/L Glucose (75-110) mg/dL Lactate (0.7-2.1) mmol/L FiO2 % Potassium 3.9 3.3 L (3.6-5.0) MMOL/L Carbon Dioxide 23 23 (22-30) mmol/L Anion Gap 10 8 L (10-20) BUN 29 H 30 H (9-20) mg/dl Creatinine 0.6 L 0.7 L (0.8-1.5) mg/dl Est GFR ( Amer) > 60 > 60 Est GFR (Non-Af Amer) > 60 > 60 Random Glucose 194 H 76 (75-110) mg/dL Calcium 7.5 L 7.8 L (8.4-10.2) mg/dL Phosphorus 1.7 L (2.5-4.5) mg/dl Magnesium 2.0 (1.6-2.3) MG/DL Total Bilirubin 1.9 H 2.3 H (0.2-1.3) mg/dl AST 158 H D 232 H D (17-59) U/L ALT 356 H 416 H (21-72) U/L Alkaline Phosphatase 146 H D 117 (38-126) U/L Total Protein 4.9 L 4.9 L (6.3-8.2) G/DL Albumin 2.4 L 2.4 L (3.5-5.0) g/dL Globulin 2.5 2.5 (2.2-3.9) gm/dL Albumin/Globulin Ratio 0.9 L 0.9 L (1.0-2.1) Venous Blood Potassium (3.6-5.2) mmol/L Blood Type Blood Type Confirm Antibody Screen Crossmatch BBK History Checked 03/22/18 03/22/18 Range/Units 19:04 18:50 WBC 27.9 H (4.8-10.8) K/uL RBC 3.42 L (4.40-5.90) Mil/uL Hgb 10.5 L (12.0-18.0) g/dL Hct 31.9 L (35.0-51.0) % MCV 93.4 (80.0-94.0) fl MCH 30.8 (27.0-31.0) pg MCHC 33.0 (33.0-37.0) g/dL RDW 15.0 H (11.5-14.5) % Plt Count 76 L (130-400) K/uL MPV 10.0 (7.2-11.7) fl Neut % (Auto) 91.6 H (50.0-75.0) % Lymph % (Auto) 4.4 L (20.0-40.0) % [place] % (Auto) 3.3 (0.0-10.0) % Eos % (Auto) 0.6 (0.0-4.0) % Baso % (Auto) 0.1 (0.0-2.0) % Neut # (Auto) 25.5 H (1.8-7.0) K/uL Lymph # (Auto) 1.2 (1.0-4.3) K/uL [place] # (Auto) 0.9 H (0.0-0.8) K/uL Eos # (Auto) 0.2 (0.0-0.7) K/uL Baso # (Auto) 0.0 (0.0-0.2) K/uL Neutrophils % (Manual) 81 H (42-75) % Band Neutrophils % 5 H (0-2) % Lymphocytes % (Manual) 8 L (20-50) % Monocytes % (Manual) 5 (0-10) % Eosinophils % (Manual) 1 (0-7) % Metamyelocytes % (0-0) % Toxic Granulation Present Platelet Estimate Decreased L (NORMAL) Polychromasia Slight Poikilocytosis (manual Slight Anisocytosis (manual) Moderate Target Cells Slight PT (9.8-13.1) Seconds INR pO2 43 (30-55) mm/Hg VBG pH 7.40 (7.32-7.43) VBG pCO2 36 L (40-60) mmHg VBG HCO3 22.9 mmol/L VBG Total CO2 23.4 (22-28) mmol/L VBG O2 Sat (Calc) 58.5 (40-65) % VBG Base Excess -2.0 L (0.0-2.0) mmol/L VBG Potassium 3.1 L (3.6-5.2) mmol/L Sodium 140.0 (132-148) mmol/L Chloride 108.0 H (98-107) mmol/L Glucose 76 (75-110) mg/dL Lactate 2.4 H (0.7-2.1) mmol/L FiO2 21.0 % Potassium (3.6-5.0) MMOL/L Carbon Dioxide (22-30) mmol/L Anion Gap (10-20) BUN (9-20) mg/dl Creatinine (0.8-1.5) mg/dl Est GFR ( Amer) Est GFR (Non-Af Amer) Random Glucose (75-110) mg/dL Calcium (8.4-10.2) mg/dL Phosphorus (2.5-4.5) mg/dl Magnesium (1.6-2.3) MG/DL Total Bilirubin (0.2-1.3) mg/dl AST (17-59) U/L ALT (21-72) U/L Alkaline Phosphatase (38-126) U/L Total Protein (6.3-8.2) G/DL Albumin (3.5-5.0) g/dL Globulin (2.2-3.9) gm/dL Albumin/Globulin Ratio (1.0-2.1) Venous Blood Potassium 3.1 L (3.6-5.2) mmol/L Blood Type Blood Type Confirm Antibody Screen Crossmatch BBK History Checked Laboratory Results - last 24 hr 03/22/18 03/22/18 03/22/18 18:50 19:04 19:04 WBC 27.9 H RBC 3.42 L Hgb 10.5 L Hct 31.9 L MCV 93.4 MCH 30.8 MCHC 33.0 RDW 15.0 H Plt Count 76 L MPV 10.0 Neut % (Auto) 91.6 H Lymph % (Auto) 4.4 L [place] % (Auto) 3.3 Eos % (Auto) 0.6 Baso % (Auto) 0.1 Neut # (Auto) 25.5 H Lymph # (Auto) 1.2 [place] # (Auto) 0.9 H Eos # (Auto) 0.2 Baso # (Auto) 0.0 Neutrophils % (Manual) 81 H Band Neutrophils % 5 H Lymphocytes % (Manual) 8 L Monocytes % (Manual) 5 Eosinophils % (Manual) 1 Metamyelocytes % Toxic Granulation Present Platelet Estimate Decreased L Polychromasia Slight Poikilocytosis (manual Slight Anisocytosis (manual) Moderate Target Cells Slight PT INR pO2 43 VBG pH 7.40 VBG pCO2 36 L VBG HCO3 22.9 VBG Total CO2 23.4 VBG O2 Sat (Calc) 58.5 VBG Base Excess -2.0 L VBG Potassium 3.1 L Sodium 140.0 140 Chloride 108.0 H 112 H Glucose 76 Lactate 2.4 H FiO2 21.0 Potassium 3.3 L Carbon Dioxide 23 Anion Gap 8 L BUN 30 H Creatinine 0.7 L Est GFR ( Amer) > 60 Est GFR (Non-Af Amer) > 60 Random Glucose 76 Calcium 7.8 L Phosphorus Magnesium Total Bilirubin 2.3 H AST 232 H D ALT 416 H Alkaline Phosphatase 117 Total Protein 4.9 L Albumin 2.4 L Globulin 2.5 Albumin/Globulin Ratio 0.9 L Venous Blood Potassium 3.1 L Blood Type Blood Type Confirm Antibody Screen Crossmatch BBK History Checked 03/23/18 03/23/18 03/23/18 04:20 04:20 10:40 WBC 33.3 H RBC 3.39 L Hgb 10.4 L Hct 31.3 L MCV 92.4 MCH 30.7 MCHC 33.2 RDW 14.9 H Plt Count 67 L MPV 10.7 Neut % (Auto) 93.6 H Lymph % (Auto) 2.6 L [place] % (Auto) 2.0 Eos % (Auto) 1.8 Baso % (Auto) 0.0 Neut # (Auto) 31.2 H Lymph # (Auto) 0.9 L [place] # (Auto) 0.7 Eos # (Auto) 0.6 Baso # (Auto) 0.0 Neutrophils % (Manual) 86 H Band Neutrophils % 7 H Lymphocytes % (Manual) 3 L Monocytes % (Manual) 2 Eosinophils % (Manual) Metamyelocytes % 2 H Toxic Granulation Platelet Estimate Decreased L Polychromasia Poikilocytosis (manual Anisocytosis (manual) Slight Target Cells PT 14.7 H INR 1.3 pO2 VBG pH VBG pCO2 VBG HCO3 VBG Total CO2 VBG O2 Sat (Calc) VBG Base Excess VBG Potassium Sodium 140 Chloride 111 H Glucose Lactate FiO2 Potassium 3.9 Carbon Dioxide 23 Anion Gap 10 BUN 29 H Creatinine 0.6 L Est GFR ( Amer) > 60 Est GFR (Non-Af Amer) > 60 Random Glucose 194 H Calcium 7.5 L Phosphorus 1.7 L Magnesium 2.0 Total Bilirubin 1.9 H AST 158 H D ALT 356 H Alkaline Phosphatase 146 H D Total Protein 4.9 L Albumin 2.4 L Globulin 2.5 Albumin/Globulin Ratio 0.9 L Venous Blood Potassium Blood Type Blood Type Confirm Antibody Screen Crossmatch BBK History Checked 03/23/18 03/23/18 11:14 11:38 WBC RBC Hgb Hct MCV MCH MCHC RDW Plt Count MPV Neut % (Auto) Lymph % (Auto) [place] % (Auto) Eos % (Auto) Baso % (Auto) Neut # (Auto) Lymph # (Auto) [place] # (Auto) Eos # (Auto) Baso # (Auto) Neutrophils % (Manual) Band Neutrophils % Lymphocytes % (Manual) Monocytes % (Manual) Eosinophils % (Manual) Metamyelocytes % Toxic Granulation Platelet Estimate Polychromasia Poikilocytosis (manual Anisocytosis (manual) Target Cells PT INR pO2 VBG pH VBG pCO2 VBG HCO3 VBG Total CO2 VBG O2 Sat (Calc) VBG Base Excess VBG Potassium Sodium Chloride Glucose Lactate FiO2 Potassium Carbon Dioxide Anion Gap BUN Creatinine Est GFR ( Amer) Est GFR (Non-Af Amer) Random Glucose Calcium Phosphorus Magnesium Total Bilirubin AST ALT Alkaline Phosphatase Total Protein Albumin Globulin Albumin/Globulin Ratio Venous Blood Potassium Blood Type O POSITIVE Blood Type Confirm O POSITIVE Antibody Screen Negative Crossmatch See Detail BBK History Checked No verified bt Critical Care Progress Note - Nutrition Nutrition: Nutrition Category Date Time Status Liquid Diet [DIET] Diets 03/23/18 Breakfast Active Attending/Attestation - Attestation I have personally seen and examined this patient.: Yes I have fully participated in the care of the patient.: Yes I have reviewed all pertinent clinical information: Yes Notes (Text): 03/23/18 17:02 I have seen and examined the patient. Medical records, lab studies, and imaging were reviewed by me and a management plan was formulated on multidisciplinary rounds with resident Dr. Perez. I agree with their above documented assessment and plan. Patient has improved clinically. Titrating pressors off, stopped stress dose steroids. started on clear liquid diet. ERCP scheduled for tomorrow. Thrombocytopenia secondary to sepsis, will monitor, transfuse if platelets <50. Critical Care Time 35 minutes. Multi-disciplinary rounds were performed with house staff, nursing, speech therapy, respiratory therapy, pharmacy and nutrition with integrated input from the primary team/attending and other consulting services. The documented time is cumulative and includes review of patient data/exams/labs/chart review and examination of the patient on rounds and throughout the day; time is exclusive of any procedures or teaching time. 03/23/18 17:02 03/23/18 17:06
[2018-03-23 10:56] LABS: INR 1.3; PROTHROMBIN TIME 14.7 Seconds (9.8-13.1)
--- NOTE | 2018-03-23 14:29 | CARD ---
APPROVED REPORT Date of service: 03/23/2018 EXAM: Two-dimensional and M-mode echocardiogram with Doppler and color Doppler. Other Information Quality : AverageFairRhythm : NSR Technically limited study due to body habitus. INDICATION LV Function:SystolicDiastolic 2D DIMENSIONS IVSd0.89 (0.7-1.1cm)LVDd4.23 (3.9-5.9cm) LVOT Diameter2.19 (1.8-2.4cm)PWd0.49 (0.7-1.1cm) IVSs1.22 (0.8-1.2cm)LVDs3.09 (2.5-4.0cm) FS (%) 26.8 %PWs0.91 (0.8-1.2cm) M-Mode DIMENSIONS Left Atrium (MM)3.12 (2.5-4.0cm)IVSd0.79 (0.7-1.1cm) Aortic Root3.18 (2.2-3.7cm)LVDd5.26 (4.0-5.6cm) Aortic Cusp Exc.0.94 (1.5-2.0cm)PWd1.00 (0.7-1.1cm) IVSs1.47 cmFS (%) 42 % LVDs3.03 (2.0-3.8cm)PWs1.44 cm Aortic Valve AoV Peak Uhqvrqgf536.3cm/sAoV VTI66.9cmAO Peak GR.27mmHg LVOT Peak Vetbqqsn29.0cm/sLVOT VTI12.39cmAO Mean GR.16mmHg AI P 1/2 [id number] Mitral Valve E/A ratio0.0 TDI E/Lateral E'0.0E/Medial E'0.0 Tricuspid Valve TR Peak [id number]/sRAP [id number] Peak Gr.18mmHg [id number] LEFT VENTRICLE The left ventricle is normal size. There is normal left ventricular wall thickness. The left ventricular ejection fraction is within the normal range. The Ejection Fraction is 60-65%. No regional wall motion abnormalities noted.. The left ventricular diastolic function is normal. No left ventricle thrombus noted on this study. There is no ventricular septal defect visualized. There is no mass noted in the left ventricle. RIGHT VENTRICLE The right ventricle is normal size. There is normal right ventricular wall thickness. The right ventricular systolic function is normal. ATRIA The left atrium size is normal. The right atrium size is normal. The interatrial septum is intact with no evidence for an atrial septal defect. AORTIC VALVE The aortic valve is poorly visualized Mild aortic regurgitation is present. Peak transaortic gradients 27 mmHg and mean pressure gradient of 16 mmHg. An accurate ANALIA was not calculated, but the gradients would be consistent with mild to moderate stenosis MITRAL VALVE The mitral valve is normal in structure. There is no mitral valve stenosis. There is no mitral valve regurgitation noted. TRICUSPID VALVE The tricuspid valve is normal in structure. There is mild tricuspid valve regurgitation noted. PASP within normal limits PULMONIC VALVE The pulmonary valve is normal in structure. There is no pulmonic valvular regurgitation. GREAT VESSELS The aortic root is normal in size. The ascending aorta is normal in size. The pulmonary artery is normal. The IVC is normal in size and collapses >50% with inspiration. PERICARDIAL EFFUSION There is no pericardial effusion. <Conclusion> Mild to moderate aortic stenosis with mild insufficiency Mild TR with normal PASP Normal LV function The Ejection Fraction is 60-65%.
--- NOTE | 2018-03-23 18:54 | CP.PCM.CON ---
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), presents from [facility] for ERCP, after admitted for septic shock 2/2 acute cholangitis and acute cholecystitis,cholecystostomy tube placed 2 days ago ID consult requested for sepsis septic shock antibiotic management for ERCP in am PMH CAD stents 7 years ago, HTN, hyperlipidemia Review of Systems - Review of Systems All systems: reviewed and no additional remarkable complaints except - Constitutional Constitutional: As Per HPI - EENT Eyes: absent: As Per HPI, Blind Spots, Blurred Vision, Change in Vision, Decreased Night Vision, Diplopia, Discharge, Dry Eye, Exophthalmos, Floaters, Irritation, Itchy Eyes, Loss of Peripheral Vision, Pain, Photophobia, Requires Corrective Lenses, Sees Flashes, Spots in Vision, Tunnel Vision, Other Visual Disturbances, Loss of Vision, Other Ears: absent: As Per HPI, Decreased Hearing, Ear Discharge, Ear Pain, Tinnitus, Abnormal Hearing, Disequilibrium, Dizziness, Other Nose/Mouth/Throat: absent: As Per HPI, Epistaxis, Nasal Congestion, Nasal Discharge, Nasal Obstruction, Nasal Trauma, Nose Pain, Post Nasal Drip, Sinus Pain, Sinus Pressure, Bleeding Gums, Change in Voice, Dental Pain, Dry Mouth, Dysphagia, Halitosis, Hoarsness, Lip Swelling, Mouth Lesions, Mouth Pain, Odynophagia, Sore Throat, Throat Swelling, Tongue Swelling, Facial Pain, Neck Pain, Neck Mass, Other - Cardiovascular Cardiovascular: absent: As Per HPI, Acrocyanosis, Chest Pain, Chest Pain at Rest , Chest Pain with Activity, Claudication, Diaphoresis, Dyspnea, Dyspnea on Exertion, Edema, Irregular Heart Rhythm, Pain Radiating to Arm/Neck/Jaw, Leg Edema, Leg Ulcers, Lightheadedness, Orthopnea, Palpitations, Paroxysmal Nocturnal Dyspnea, Pedal Edema, Radiating Pain, Rapid Heart Rate, Slow Heart Rate, Syncope, Other - Respiratory Respiratory: absent: As Per HPI, Cough, Dyspnea, Hemoptysis, Dyspnea on Exertion , Wheezing, Snoring, Stridor, Pain on Inspiration, Chest Congestion, Excessive Mucous Production, Change in Mucous Color, Pain with Coughing, Other - Gastrointestinal Gastrointestinal: As Per HPI - Genitourinary Genitourinary: absent: As Per HPI, Change in Urinary Stream, Difficulty Urinating, Dysuria, Flank Pain, Hematuria, Pyuria, Nocturia, Urinary Incontinence, Urinary Frequency, Urinary Hesitance, Urinary Urgency, Voiding Freq/Small Amts, Freq UTI, Hx Renal/Bladder Calculi, Hx /Renal Surgery, Bladder Distension, Other - Musculoskeletal Musculoskeletal: absent: As Per HPI, Abnormal Gait, Arthralgias, Atrophy, Back Pain, Deformity, Joint Swelling, Limited Range of Motion, Loss of Height, Muscle Cramps, Muscle Weakness, Myalgias, Neck Pain, Numbness, Radiating Pain into Limb, Stiffness, Tingling, Other - Integumentary Integumentary: absent: As Per HPI, Acne, Alopecia, Bleeding Lesions, Change in Hair, Change in Nails, Change in Pigmentation, Changing Lesions, Dry Skin, Erythema, Furuncle, Hirsutism, Lesions, New Lesions, Non-Healing Lesions, Photosensitivity, Pruritus, Rash, Skin Pain, Skin Ulcer, Sores, Striae, Swelling , Unusual Bruising, Wounds, Jaundice, Other - Neurological Neurological: absent: As Per HPI, Abnormal Gait, Abnormal Hearing, Abnormal Movements, Abnormal Speech, Behavioral Changes, Burning Sensations, Confusion, Convulsions, Disequilibrium, Dizziness, Numbness, Focal Weakness, Frequent Falls , Headaches, Lack of Coordination, Loss of Vision, Memory Loss, Paresthesias, Radicular Pain, Restless Legs, Sensory Deficit, Syncope, Tingling, Tremor, Vertigo, Weakness, Other Visual Disturbances, Other - Psychiatric Psychiatric: absent: As Per HPI, Abnormal Sleep Pattern, Anhedonia, Anxiety, Auditory Hallucinations, Behavioral Changes, Change in Appetite, Change in Libido, Confusion, Depression, Difficulty Concentrating, Hallucinations, Homicidal Ideation, Hopelessness, Irritability, Memory Loss, Mood Swings, Panic Attacks, Paranoia, Suicidal Ideation, Visual Hallucinations, Tactile Hallucinations, Other - Endocrine Endocrine: absent: As Per HPI, Change in Body Appearance, Change in Libido, Cold Intolorance, Deepening of Voice, Excessive Sweating, Fatigue, Flushing, Heat Intolorance, Increase in Ring/Shoe/Hat Size, Palpitations, Polydipsia, Polyphagia, Polyuria, Other - Hematologic/Lymphatic Hematologic: absent: As Per HPI, Easy Bleeding, Easy Bruising, Lymphadenopathy, Other Past Patient History - Past Medical History & Family History Past Medical History?: Yes - Past Social History Smoking Status: Never Smoked - CARDIAC Hx Cardiac Disorders: Yes Hx Hypertension: Yes Hx Pacemaker: No - PULMONARY Hx Respiratory Disorders: No - NEUROLOGICAL Hx Paralysis: No - HEENT Hx HEENT Problems: No - RENAL Hx Chronic Kidney Disease: No - ENDOCRINE/METABOLIC Hx Endocrine Disorders: No - HEMATOLOGICAL/ONCOLOGICAL Hx Blood Transfusions: No Hx Blood Transfusion Reaction: No - INTEGUMENTARY Hx Dermatological Problems: No - MUSCULOSKELETAL/RHEUMATOLOGICAL Hx Musculoskeletal Disorders: Yes (SPINAL CORD INJURY) - GASTROINTESTINAL Hx Gastrointestinal Disorders: No - GENITOURINARY/GYNECOLOGICAL Hx Genitourinary Disorders: Yes Hx Urinary Tract Infection: Yes (2/2 urinary retention ) - PSYCHIATRIC Hx Emotional Abuse: No Hx Physical Abuse: No Hx Substance Use: No - SURGICAL HISTORY Hx Musculoskeletal Surgery: Yes (spinal column surgery) - ANESTHESIA Hx Anesthesia: Yes Hx Anesthesia Reactions: No Hx Malignant Hyperthermia: No Meds Allergies/Adverse Reactions: Allergies Allergy/AdvReac Type Severity Reaction Status Date / Time diatrizoate sodium Allergy Intermediate VERIFY ON Verified 06/01/17 09:50 [From Hypaque] ADM - Medications Medications: Current Medications Acetaminophen (Tylenol 325mg Tab) 650 mg PO Q8 PRN PRN Reason: Fever >100.4 F Albuterol/Ipratropium (Duoneb 3 Mg/0.5 Mg (3 Ml) Ud) 3 ml INH RQID PRN PRN Reason: Shortness of Breath Last Admin: 03/23/18 08:30 Dose: 3 ml Hydromorphone HCl (Dilaudid) 0.5 mg IVP Q4 PRN PRN Reason: Pain, moderate (4-7) Meropenem 1 gm/ Sodium (Chloride) 100 mls @ 100 mls/hr IVPB Q8 MARQUIS PRN Reason: Protocol Last Admin: 03/23/18 17:34 Dose: 100 mls/hr Vancomycin HCl 1 gm/ Sodium (Chloride) 250 mls @ 166.667 mls/hr IVPB DAILY MARQUIS PRN Reason: Protocol Last Admin: 03/23/18 11:45 Dose: 166.667 mls/hr Potassium Chloride/Dextrose/Sod Cl (Potassium Chl 20 Meq In D5-1/2ns) 1,000 mls @ 75 mls/hr IV .[id number] MARQUIS Stop: 03/24/18 17:52 Indomethacin (Indocin Suppository) 100 mg AL ONCE ONE Stop: 03/24/18 12:01 Ondansetron HCl (Zofran Inj) 4 mg IVP Q6 PRN PRN Reason: Nausea/Vomiting Pantoprazole Sodium (Protonix Inj) 40 mg IVP DAILY MARQUIS Last Admin: 03/23/18 08:25 Dose: 40 mg Physical Exam - Constitutional Appears: Toxic, No Acute Distress, Chronically Ill - Head Exam Head Exam: NORMOCEPHALIC - Eye Exam Eye Exam: PERRL. absent: Scleral icterus - ENT Exam ENT Exam: Mucous Membranes Dry, Normal External Ear Exam - Neck Exam Neck exam: Negative for: Lymphadenopathy - Respiratory Exam Respiratory Exam: Decreased Breath Sounds, Rhonchi - Cardiovascular Exam Cardiovascular Exam: REGULAR RHYTHM, +S1, +S2 - GI/Abdominal Exam GI & Abdominal Exam: Diminished Bowel Sounds, Distended, Guarding, Soft. absent : Rebound, Rigid, Tenderness Additional comments: RUQ drain in place - Rectal Exam Rectal Exam: Deferred - Exam Exam: NORMAL INSPECTION - Extremities Exam Extremities exam: Positive for: pedal pulses present. Negative for: calf tenderness, pedal edema, tenderness - Back Exam Back exam: absent: CVA tenderness (L), CVA tenderness (R) - Neurological Exam Neurological exam: Alert, CN II-XII Intact, Motor Sensory Deficit, Oriented x3 Additional comments: paraplegic - Psychiatric Exam Psychiatric exam: Depressed - Skin Skin Exam: Dry, Intact Results - Vital Signs Recent Vital Signs: Last Vital Signs Temp 97.6 F 03/23/18 16:00 Pulse 65 03/23/18 18:00 Resp 16 03/23/18 18:00 BP 97/54 L 03/23/18 18:00 Pulse Ox 96 03/23/18 18:00 - Labs Result Diagrams: 03/23/18 04:20 03/23/18 04:20 Labs: Laboratory Results - last 24 hr 03/22/18 03/22/18 03/22/18 18:50 19:04 19:04 WBC 27.9 H RBC 3.42 L Hgb 10.5 L Hct 31.9 L MCV 93.4 MCH 30.8 MCHC 33.0 RDW 15.0 H Plt Count 76 L MPV 10.0 Neut % (Auto) 91.6 H Lymph % (Auto) 4.4 L Rad[place] % (Auto) 3.3 Eos % (Auto) 0.6 Baso % (Auto) 0.1 Neut # (Auto) 25.5 H Lymph # (Auto) 1.2 [place] # (Auto) 0.9 H Eos # (Auto) 0.2 Baso # (Auto) 0.0 Neutrophils % (Manual) 81 H Band Neutrophils % 5 H Lymphocytes % (Manual) 8 L Monocytes % (Manual) 5 Eosinophils % (Manual) 1 Metamyelocytes % Toxic Granulation Present Platelet Estimate Decreased L Polychromasia Slight Poikilocytosis (manual Slight Anisocytosis (manual) Moderate Target Cells Slight PT INR pO2 43 VBG pH 7.40 VBG pCO2 36 L VBG HCO3 22.9 VBG Total CO2 23.4 VBG O2 Sat (Calc) 58.5 VBG Base Excess -2.0 L VBG Potassium 3.1 L Sodium 140.0 140 Chloride 108.0 H 112 H Glucose 76 Lactate 2.4 H FiO2 21.0 Potassium 3.3 L Carbon Dioxide 23 Anion Gap 8 L BUN 30 H Creatinine 0.7 L Est GFR ( Amer) > 60 Est GFR (Non-Af Amer) > 60 Random Glucose 76 Calcium 7.8 L Phosphorus Magnesium Total Bilirubin 2.3 H AST 232 H D ALT 416 H Alkaline Phosphatase 117 Total Protein 4.9 L Albumin 2.4 L Globulin 2.5 Albumin/Globulin Ratio 0.9 L Venous Blood Potassium 3.1 L Blood Type Blood Type Confirm Antibody Screen Crossmatch BBK History Checked 03/23/18 03/23/18 03/23/18 04:20 04:20 10:40 WBC 33.3 H RBC 3.39 L Hgb 10.4 L Hct 31.3 L MCV 92.4 MCH 30.7 MCHC 33.2 RDW 14.9 H Plt Count 67 L MPV 10.7 Neut % (Auto) 93.6 H Lymph % (Auto) 2.6 L Rad[place] % (Auto) 2.0 Eos % (Auto) 1.8 Baso % (Auto) 0.0 Neut # (Auto) 31.2 H Lymph # (Auto) 0.9 L [place] # (Auto) 0.7 Eos # (Auto) 0.6 Baso # (Auto) 0.0 Neutrophils % (Manual) 86 H Band Neutrophils % 7 H Lymphocytes % (Manual) 3 L Monocytes % (Manual) 2 Eosinophils % (Manual) Metamyelocytes % 2 H Toxic Granulation Platelet Estimate Decreased L Polychromasia Poikilocytosis (manual Anisocytosis (manual) Slight Target Cells PT 14.7 H INR 1.3 pO2 VBG pH VBG pCO2 VBG HCO3 VBG Total CO2 VBG O2 Sat (Calc) VBG Base Excess VBG Potassium Sodium 140 Chloride 111 H Glucose Lactate FiO2 Potassium 3.9 Carbon Dioxide 23 Anion Gap 10 BUN 29 H Creatinine 0.6 L Est GFR ( Amer) > 60 Est GFR (Non-Af Amer) > 60 Random Glucose 194 H Calcium 7.5 L Phosphorus 1.7 L Magnesium 2.0 Total Bilirubin 1.9 H AST 158 H D ALT 356 H Alkaline Phosphatase 146 H D Total Protein 4.9 L Albumin 2.4 L Globulin 2.5 Albumin/Globulin Ratio 0.9 L Venous Blood Potassium Blood Type Blood Type Confirm Antibody Screen Crossmatch BBK History Checked 03/23/18 03/23/18 11:14 11:38 WBC RBC Hgb Hct MCV MCH MCHC RDW Plt Count MPV Neut % (Auto) Lymph % (Auto) Radford % (Auto) Eos % (Auto) Baso % (Auto) Neut # (Auto) Lymph # (Auto) Rad[place] # (Auto) Eos # (Auto) Baso # (Auto) Neutrophils % (Manual) Band Neutrophils % Lymphocytes % (Manual) Monocytes % (Manual) Eosinophils % (Manual) Metamyelocytes % Toxic Granulation Platelet Estimate Polychromasia Poikilocytosis (manual Anisocytosis (manual) Target Cells PT INR pO2 VBG pH VBG pCO2 VBG HCO3 VBG Total CO2 VBG O2 Sat (Calc) VBG Base Excess VBG Potassium Sodium Chloride Glucose Lactate FiO2 Potassium Carbon Dioxide Anion Gap BUN Creatinine Est GFR ( Amer) Est GFR (Non-Af Amer) Random Glucose Calcium Phosphorus Magnesium Total Bilirubin AST ALT Alkaline Phosphatase Total Protein Albumin Globulin Albumin/Globulin Ratio Venous Blood Potassium Blood Type O POSITIVE Blood Type Confirm O POSITIVE Antibody Screen Negative Crossmatch See Detail BBK History Checked No verified bt Assessment & Plan (1) Cholangitis Status: Acute Priority: High (2) Cholecystitis Status: Acute Priority: High (3) Septic shock Status: Acute Priority: High (4) Sepsis Status: Acute - Assessment and Plan (Free Text) Assessment: cont Vanco Merrem pending cultures for ERCP in am
--- NOTE | 2018-03-23 20:11 | CON ---
Copied To: Cristian Sellers MD/ PhD Attending MD: Cristian Sellers MD/PhD DATE: 03/23/2018 REFERRING PHYSICIAN: lAejandra Garcia DO HISTORY OF PRESENT ILLNESS: This is a very pleasant 82-year-old man essentially with injury with history of CAD, stents seven years ago, hypertension, and hyperlipidemia. Essentially, he was brought on from [facility] for what appeared to be sepsis from cholangitis versus cholecystitis. The patient actually did well. Had a complicated course involving two pressors and hypotension. Meets sepsis criteria. He is doing remarkably well after the percutaneous cholecystotomy tube. The patient was transferred here for possible ERCP pertaining to the possible cholangitis. The patient is currently lying in bed comfortably, asking for food, in no apparent distress. PAST MEDICAL HISTORY: As above. PAST SURGICAL HISTORY: As above. MEDICATIONS: Have been reviewed. REVIEW OF SYSTEMS: All other systems have been reviewed and negative apart from the HPI. PHYSICAL EXAMINATION: VITAL SIGNS: Here in the hospital are grossly unremarkable. GENERAL: This is an elderly appearing male, lying in bed comfortably, in no apparent distress. HEENT: Head is normocephalic and atraumatic. Eyes, pupils are equally reactive to light bilaterally. No conjunctival pallor or icterus. NECK: Supple. Normal range of motion. No lymphadenopathy appreciated. LUNGS: Coarse breath sounds bilaterally. HEART: S1 and S2. Regular rate and rhythm. No murmurs appreciated. ABDOMEN: Soft and nontender. Bowel sounds are present. No rebound. No guarding. RECTAL: Deferred. EXTREMITIES: Pulses present bilaterally. SKIN: Warm, dry, and intact. LABORATORY DATA: Labs and radiology have been reviewed. Labs include WBC 27.9, hemoglobin 10.5, hematocrit 31.9, and platelet count of 76. Total bili 2.3, AST 232, ALT 416, and alk phos 117. ASSESSMENT AND PLAN: This is an 82-year-old male with what appears to be cholecystitis and sepsis. We will perform ERCP once clinically stable. NPO for now, ICU management. Thank you for the consult. Cristian Sellers MD/ PhD [facility] # [id number]
[2018-03-24] MEDS: Meropenem 1 GM in Sodium Chloride 0.9% 100 ML IVPB SCH ×3 (00:27→16:24)
[2018-03-24 05:23] LABS: BASO % 0.1 % (0.0-2.0); EOS # 0.2 K/uL (0.0-0.7); HEMOGLOBIN 9.9 g/dL (12.0-18.0); LYMPH # 2.4 K/uL (1.0-4.3); LYMPH % 12.2 % (20.0-40.0); MEAN CELL VOLUME 93.5 fl (80.0-94.0); MEAN CORPUSCULAR HGB CONC 33.2 g/dL (33.0-37.0); MEAN PLATELET VOLUME 10.7 fl (7.2-11.7); MONO # 0.5 K/uL (0.0-0.8); MONO % 2.6 % (0.0-10.0); NEUT # 16.3 K/uL (1.8-7.0); NEUT % 84.1 % (50.0-75.0); NRBC % 0.1 % (0.0-0.0); RBC 3.2 Mil/uL (4.40-5.90); RED CELL DISTRIBUTION WIDTH 14.8 % (11.5-14.5); WHITE BLOOD COUNT 19.4 K/uL (4.8-10.8)
[2018-03-24 05:57] LABS: ALB/GLOB RATIO 0.9 (1.0-2.1); ALBUMIN 2.1 g/dL (3.5-5.0); ALT/SGPT 223 U/L (21-72); AST/SGOT 65 U/L (17-59); BLOOD UREA NITROGEN 22 mg/dl (9-20); CALCIUM 7.4 mg/dL (8.4-10.2); GFR NON-AFRICAN AMERICAN > 60
--- NOTE | 2018-03-24 07:45 | CP.PCM.PN ---
Subjective - Date & Time of Evaluation Date of Evaluation: 03/24/18 Time of Evaluation: 07:45 - Subjective Subjective: pt clincally improving HD stable for ERCP today discussed with GI possible +platelets if avail, 64 today Objective - Vital Signs/Intake and Output Vital Signs (last 24 hours): Temp Pulse Resp BP Pulse Ox 98 F 79 21 122/76 100 03/24/18 04:00 03/24/18 07:00 03/24/18 07:00 03/24/18 07:00 03/24/18 07:00 Intake and Output: 03/24/18 03/24/18 06:59 18:59 Intake Total 1000 Output Total 1240 Balance -240 GEN: awake alert HEENT: NCAT, PERRL, EOMI HEART: RRR +S1S2 LUNG: CTAB no WRR ABD: soft, NT, ND, no mass, BSx4 EXT: normal capillary refill, warm SKIN: warm, dry NEURO: awake, alert PSYCH: normal mood and affect - Medications Medications: Current Medications Acetaminophen (Tylenol 325mg Tab) 650 mg PO Q8 PRN PRN Reason: Fever >100.4 F Albuterol/Ipratropium (Duoneb 3 Mg/0.5 Mg (3 Ml) Ud) 3 ml INH RQID PRN PRN Reason: Shortness of Breath Last Admin: 03/23/18 08:30 Dose: 3 ml Hydromorphone HCl (Dilaudid) 0.5 mg IVP Q4 PRN PRN Reason: Pain, moderate (4-7) Meropenem 1 gm/ Sodium (Chloride) 100 mls @ 100 mls/hr IVPB Q8 MARQUIS PRN Reason: Protocol Last Admin: 03/24/18 00:27 Dose: 100 mls/hr Vancomycin HCl 1 gm/ Sodium (Chloride) 250 mls @ 166.667 mls/hr IVPB DAILY MARQUIS PRN Reason: Protocol Last Admin: 03/23/18 11:45 Dose: 166.667 mls/hr Potassium Chloride/Dextrose/Sod Cl (Potassium Chl 20 Meq In D5-1/2ns) 1,000 mls @ 75 mls/hr IV .[id number] MARQUIS Stop: 03/24/18 17:52 Last Admin: 03/23/18 19:30 Dose: 75 mls/hr Indomethacin (Indocin Suppository) 100 mg AL ONCE ONE Stop: 03/24/18 12:01 Ondansetron HCl (Zofran Inj) 4 mg IVP Q6 PRN PRN Reason: Nausea/Vomiting Pantoprazole Sodium (Protonix Inj) 40 mg IVP DAILY MARQUIS Last Admin: 03/23/18 08:25 Dose: 40 mg - Labs Labs: 03/24/18 04:20 03/24/18 04:20 PT 14.7 Seconds (9.8-13.1) H 03/23/18 10:40 INR 1.3 03/23/18 10:40 Assessment and Plan - Assessment and Plan (Free Text) Plan: 82 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 GI and Surgery evaluations appreciated. Pt states nausea was acute, constant, moderate , and associated with nbnb emesis at time of onset. T 98 HR 60 BP 122/47 RR 26 O2 97% on 2L NC. Continue management in ICU, plan for ERCP. Discussed with GI, patient is significantly improved clinically, however will require further stabilization prior to ERCP. Family at bedside, all questions answered. Septic Shock Acute Cholangitis Acute Cholecystitis Clinically appears improving weaned off pressors yesterday cholecystostomy tube placed 4 days ago Continue Merrem 1 gm and Vancomycin blood and bile cultures + EColi, E. Faecalis GI Dr. Sellers and Surgery evaluations appreciated. Plan for ERCP today pt type and cross 1 unit NPO on maintenance fluids Leukocytosis w L shift secondary to stress dose steroids for sepsis d/c hydrocortisone, no further indication Thrombocytopenia possibly secondary to meds vs sequestration vs sepsis monitor 64 today transfuse if available discussed with GI Elevated transaminases Hyperbilirubinemia trending down, improving CAD HLD holding Plavix for NPO no heparin for DVT 2/2 thrombocytopenia
--- NOTE | 2018-03-24 08:32 | CP.PCM.PN ---
Subjective - Date & Time of Evaluation Date of Evaluation: 03/24/18 Time of Evaluation: 07:20 - Subjective Subjective: General Surgery Dr. Garcia Pt S&E @bedside. weaned off pressors yesterday. URIEL. pt scheduled for ERCP today. denies abd pain, F/C, N/V. NPO for procedure. Objective - Vital Signs/Intake and Output Vital Signs (last 24 hours): Temp Pulse Resp BP Pulse Ox 98 F 79 21 122/76 100 03/24/18 04:00 03/24/18 07:00 03/24/18 07:00 03/24/18 07:00 03/24/18 07:00 Intake and Output: 03/24/18 03/24/18 06:59 18:59 Intake Total 1000 Output Total 1240 Balance -240 - Medications Medications: Current Medications Acetaminophen (Tylenol 325mg Tab) 650 mg PO Q8 PRN PRN Reason: Fever >100.4 F Albuterol/Ipratropium (Duoneb 3 Mg/0.5 Mg (3 Ml) Ud) 3 ml INH RQID PRN PRN Reason: Shortness of Breath Last Admin: 03/23/18 08:30 Dose: 3 ml Hydromorphone HCl (Dilaudid) 0.5 mg IVP Q4 PRN PRN Reason: Pain, moderate (4-7) Meropenem 1 gm/ Sodium (Chloride) 100 mls @ 100 mls/hr IVPB Q8 MARQUIS PRN Reason: Protocol Last Admin: 03/24/18 00:27 Dose: 100 mls/hr Vancomycin HCl 1 gm/ Sodium (Chloride) 250 mls @ 166.667 mls/hr IVPB DAILY MARQUIS PRN Reason: Protocol Last Admin: 03/23/18 11:45 Dose: 166.667 mls/hr Potassium Chloride/Dextrose/Sod Cl (Potassium Chl 20 Meq In D5-1/2ns) 1,000 mls @ 75 mls/hr IV .[id number] [facility] Stop: 03/24/18 17:52 Last Admin: 03/23/18 19:30 Dose: 75 mls/hr Indomethacin (Indocin Suppository) 100 mg MS ONCE ONE Stop: 03/24/18 12:01 Ondansetron HCl (Zofran Inj) 4 mg IVP Q6 PRN PRN Reason: Nausea/Vomiting Pantoprazole Sodium (Protonix Inj) 40 mg IVP DAILY MARQUIS Last Admin: 03/23/18 08:25 Dose: 40 mg - Labs Labs: 03/24/18 04:20 03/24/18 04:20 PT 14.7 Seconds (9.8-13.1) H 03/23/18 10:40 INR 1.3 03/23/18 10:40 - Constitutional Appears: Non-toxic, No Acute Distress - Head Exam Head Exam: NORMAL INSPECTION - Eye Exam Eye Exam: Normal appearance - ENT Exam ENT Exam: Mucous Membranes Moist - Respiratory Exam Respiratory Exam: NORMAL BREATHING PATTERN. absent: Accessory Muscle Use, Respiratory Distress - Cardiovascular Exam Cardiovascular Exam: REGULAR RHYTHM. absent: Bradycardia, Tachycardia - GI/Abdominal Exam GI & Abdominal Exam: Soft. absent: Distended, Tenderness Additional comments: ifeoma tube to gravity. scant serosang drainage - Extremities Exam Extremities Exam: Normal Inspection - Neurological Exam Neurological Exam: Alert, Awake, Oriented x3 - Psychiatric Exam Psychiatric exam: Normal Affect, Normal Mood - Skin Skin Exam: Dry, Intact, Normal Color, Warm Assessment and Plan - Assessment and Plan (Free Text) Assessment: 82 y/o M w/ acute cholecytitis, concern for ascending cholangitis - NPO/IVF - cont IV Abx - maintain MAP>65 - cont pain management - monitor drain output - f/u ERCP - no plans for surgery at this time, will continue to follow Pt discussed w/ Dr. Jose Hammond DO PGY3
[2018-03-24] MEDS: Potassium Ch 20mEq in D5-1/2NS 1,000 ML IV SCH ×2 (08:45→23:00)
[2018-03-24] MEDS ORDERED: Glucagon Recombinant 1 mg Inj ONE (09:27)
[2018-03-24] MEDS ORDERED: Iohexol 240 (50 ml) ONE (09:27)
--- NOTE | 2018-03-24 10:04 | CP.CCUPN ---
<Tj Perez - Last Filed: 03/24/18 14:45> CCU Subjective - Physician Review Subjective (Free Text): Patient seen and examined this morning at bed side during rounding. Reports feeling better, no pain at this time. Denies any Nausea/Vomiting. Afebrile. HR currently stable in upper 60s. Weaned off pressors yesterday. Margareth tube in place with minimal serosanguinous drainage. ERCP scheduled for today. NPO since midnight. CCU Objective - Vital Signs / Intake & Output Vital Signs (Last 4 hours): Vital Signs Temp Pulse Resp BP Pulse Ox 03/24/18 08:00 98.2 F 64 28 H 104/54 L 98 03/24/18 07:00 79 21 122/76 100 Intake and Output (Last 8hrs): Intake & Output 03/23/18 03/24/18 03/24/18 22:59 06:59 14:59 Intake Total 750 1000 Output Total 500 1240 Balance 250 -240 Intake: IV 600 900 Intake, Piggyback 150 100 Output: Drainage 40 Right Upper Abdomen 40 Urine 500 1200 Urethral (Mireles) 500 1200 - Physical Exam Head: Positive for: Atraumatic, Normocephalic Pupils: Positive for: PERRL Extroacular Muscles: Positive for: EOMI Conjunctiva: Positive for: Normal. Negative for: Injected, Icteric Ears: Positive for: Normal Mouth: Positive for: Moist Mucous Membranes Pharnyx: Positive for: Normal Nose (Internal): Positive for: Normal Inspection Neck: Positive for: Normal Range of Motion, Trachea Midline Respiratory/Chest: Positive for: Clear to Auscultation, Good Air Exchange, Decreased Breath Sounds, Rhonchi. Negative for: Respiratory Distress, Accessory Muscle Use, Wheezes, Rales, Retracting Cardiovascular: Positive for: Regular Rate and Rhythm, Normal S1, S2. Negative for: Murmurs, Irregular Rhythm, Tachycardic, Bradycardic Abdomen: Positive for: Tenderness (around margareth tube insertion), Distention ( mild), Normal Bowel Sounds. Negative for: Peritoneal Signs, Rebound, Guarding Back: Negative for: CVA Tenderness Upper Extremity: Positive for: Normal Inspection, Capillary Refill < 2s. Negative for: Cyanosis, Edema Lower Extremity: Positive for: Normal Inspection, Capillary Refill < 2 s. Negative for: Edema, CALF TENDERNESS Neurological: Positive for: GCS=15, CN II-XII Intact, Speech Normal, Motor Func Grossly Intact, Normal Sensory Function Psychiatric: Positive for: Alert, Oriented x 3 - Medications Active Medications: Active Medications Generic Name Dose Route Start Last Admin Trade Name Freq PRN Reason Stop Dose Admin Acetaminophen 650 mg 03/22/18 16:24 Tylenol 325mg Tab PO Q8 PRN Fever >100.4 F Albuterol/Ipratropium 3 ml 03/22/18 16:25 03/23/18 08:30 Duoneb 3 Mg/0.5 Mg (3 Ml) Ud INH 3 ml RQID PRN Administration Shortness of Breath Hydromorphone HCl 0.5 mg 03/22/18 16:15 Dilaudid IVP Q4 PRN Pain, moderate (4-7) Meropenem 1 gm/ Sodium 100 mls @ 100 mls/hr 03/23/18 01:00 03/24/18 08:45 Chloride IVPB 100 mls/hr Q8 MARQUIS Administration Protocol Vancomycin HCl 1 gm/ Sodium 250 mls @ 166.667 mls/hr 03/23/18 10:15 03/23/18 11:45 Chloride IVPB 166.667 mls/hr DAILY MARQUIS Administration Protocol Potassium Chloride/Dextrose/Sod Cl 1,000 mls @ 75 mls/hr 03/23/18 18:00 03/24 08:45 Potassium Chl 20 Meq In D5-1/2ns IV 03/24/18 17:52 75 mls/hr .[id number] MARQUIS Administration Indomethacin 100 mg 03/24/18 12:00 Indocin Suppository MI 03/24/18 12:01 ONCE ONE Ondansetron HCl 4 mg 03/22/18 16:25 Zofran Inj IVP Q6 PRN Nausea/Vomiting Pantoprazole Sodium 40 mg 03/22/18 16:15 03/24/18 08:45 Protonix Inj IVP 40 mg DAILY MARQUIS Administration - Patient Studies Lab Studies: Microbiology Studies 03/22/18 19:05 MRSA Culture (Admit) - Final Naris MRSA NOT DETECTED Lab Studies 03/24/18 03/24/18 03/23/18 Range/Units 04:20 04:20 11:38 WBC 19.4 H (4.8-10.8) K/uL RBC 3.20 L (4.40-5.90) Mil/uL Hgb 9.9 L (12.0-18.0) g/dL Hct 29.9 L (35.0-51.0) % MCV 93.5 (80.0-94.0) fl MCH 31.0 (27.0-31.0) pg MCHC 33.2 (33.0-37.0) g/dL RDW 14.8 H (11.5-14.5) % Plt Count 64 L (130-400) K/uL MPV 10.7 (7.2-11.7) fl Neut % (Auto) 84.1 H (50.0-75.0) % Lymph % (Auto) 12.2 L (20.0-40.0) % [place] % (Auto) 2.6 (0.0-10.0) % Eos % (Auto) 1.0 (0.0-4.0) % Baso % (Auto) 0.1 (0.0-2.0) % Neut # (Auto) 16.3 H (1.8-7.0) K/uL Lymph # (Auto) 2.4 (1.0-4.3) K/uL [place] # (Auto) 0.5 (0.0-0.8) K/uL Eos # (Auto) 0.2 (0.0-0.7) K/uL Baso # (Auto) 0.0 (0.0-0.2) K/uL PT (9.8-13.1) Seconds INR Sodium 140 (132-148) mmol/l Potassium 3.8 (3.6-5.0) MMOL/L Chloride 115 H (98-107) mmol/L Carbon Dioxide 23 (22-30) mmol/L Anion Gap 6 L (10-20) BUN 22 H (9-20) mg/dl Creatinine 0.6 L (0.8-1.5) mg/dl Est GFR ( Amer) > 60 Est GFR (Non-Af Amer) > 60 Random Glucose 103 (75-110) mg/dL Calcium 7.4 L (8.4-10.2) mg/dL Phosphorus 1.1 L (2.5-4.5) mg/dl Magnesium 2.1 (1.6-2.3) MG/DL Total Bilirubin 1.1 (0.2-1.3) mg/dl AST 65 H D (17-59) U/L ALT 223 H D (21-72) U/L Alkaline Phosphatase 107 (38-126) U/L Total Protein 4.5 L (6.3-8.2) G/DL Albumin 2.1 L (3.5-5.0) g/dL Globulin 2.4 (2.2-3.9) gm/dL Albumin/Globulin Ratio 0.9 L (1.0-2.1) Blood Type Blood Type Confirm O POSITIVE Antibody Screen Crossmatch BBK History Checked 03/23/18 03/23/18 Range/Units 11:14 10:40 WBC (4.8-10.8) K/uL RBC (4.40-5.90) Mil/uL Hgb (12.0-18.0) g/dL Hct (35.0-51.0) % MCV (80.0-94.0) fl MCH (27.0-31.0) pg MCHC (33.0-37.0) g/dL RDW (11.5-14.5) % Plt Count (130-400) K/uL MPV (7.2-11.7) fl Neut % (Auto) (50.0-75.0) % Lymph % (Auto) (20.0-40.0) % [place] % (Auto) (0.0-10.0) % Eos % (Auto) (0.0-4.0) % Baso % (Auto) (0.0-2.0) % Neut # (Auto) (1.8-7.0) K/uL Lymph # (Auto) (1.0-4.3) K/uL [place] # (Auto) (0.0-0.8) K/uL Eos # (Auto) (0.0-0.7) K/uL Baso # (Auto) (0.0-0.2) K/uL PT 14.7 H (9.8-13.1) Seconds INR 1.3 Sodium (132-148) mmol/l Potassium (3.6-5.0) MMOL/L Chloride (98-107) mmol/L Carbon Dioxide (22-30) mmol/L Anion Gap (10-20) BUN (9-20) mg/dl Creatinine (0.8-1.5) mg/dl Est GFR ( Amer) Est GFR (Non-Af Amer) Random Glucose (75-110) mg/dL Calcium (8.4-10.2) mg/dL Phosphorus (2.5-4.5) mg/dl Magnesium (1.6-2.3) MG/DL Total Bilirubin (0.2-1.3) mg/dl AST (17-59) U/L ALT (21-72) U/L Alkaline Phosphatase (38-126) U/L Total Protein (6.3-8.2) G/DL Albumin (3.5-5.0) g/dL Globulin (2.2-3.9) gm/dL Albumin/Globulin Ratio (1.0-2.1) Blood Type O POSITIVE Blood Type Confirm Antibody Screen Negative Crossmatch See Detail BBK History Checked No verified bt Laboratory Results - last 24 hr 03/23/18 03/23/18 03/23/18 10:40 11:14 11:38 WBC RBC Hgb Hct MCV MCH MCHC RDW Plt Count MPV Neut % (Auto) Lymph % (Auto) [place] % (Auto) Eos % (Auto) Baso % (Auto) Neut # (Auto) Lymph # (Auto) [place] # (Auto) Eos # (Auto) Baso # (Auto) PT 14.7 H INR 1.3 Sodium Potassium Chloride Carbon Dioxide Anion Gap BUN Creatinine Est GFR ( Amer) Est GFR (Non-Af Amer) Random Glucose Calcium Phosphorus Magnesium Total Bilirubin AST ALT Alkaline Phosphatase Total Protein Albumin Globulin Albumin/Globulin Ratio Blood Type O POSITIVE Blood Type Confirm O POSITIVE Antibody Screen Negative Crossmatch See Detail BBK History Checked No verified bt 03/24/18 03/24/18 04:20 04:20 WBC 19.4 H RBC 3.20 L Hgb 9.9 L Hct 29.9 L MCV 93.5 MCH 31.0 MCHC 33.2 RDW 14.8 H Plt Count 64 L MPV 10.7 Neut % (Auto) 84.1 H Lymph % (Auto) 12.2 L [place] % (Auto) 2.6 Eos % (Auto) 1.0 Baso % (Auto) 0.1 Neut # (Auto) 16.3 H Lymph # (Auto) 2.4 [place] # (Auto) 0.5 Eos # (Auto) 0.2 Baso # (Auto) 0.0 PT INR Sodium 140 Potassium 3.8 Chloride 115 H Carbon Dioxide 23 Anion Gap 6 L BUN 22 H Creatinine 0.6 L Est GFR ( Amer) > 60 Est GFR (Non-Af Amer) > 60 Random Glucose 103 Calcium 7.4 L Phosphorus 1.1 L Magnesium 2.1 Total Bilirubin 1.1 AST 65 H D ALT 223 H D Alkaline Phosphatase 107 Total Protein 4.5 L Albumin 2.1 L Globulin 2.4 Albumin/Globulin Ratio 0.9 L Blood Type Blood Type Confirm Antibody Screen Crossmatch BBK History Checked Review of Systems - Review of Systems All systems: reviewed and no additional remarkable complaints except (HPI) Assessment/Plan - Assessment and Plan (Free Text) Assessment: 82 year old patient with h/o spinal cord injury, PMH CAD stents 7 years ago, HTN , hyperlipidemia admitted for septic shock 2/2 acute cholangitis and acute cholecystitis, levophed weaned off yesterday, cholecystostomy tube in place, placed 4 days ago. Continue management in ICU, Scheduled for ERCP today at noon. 1) Septic Shock, resolving Acute Cholangitis; Acute Cholecystitis Levophed weaned off since yesterday cholecystostomy tube 4th day Afebrile, WBC 19.4 Continue Merrem 1 gm Blood cultures + gram neg rods AND gram positive cocci, -vancomycin added today as per primary team GI Dr. Sellers and Surgery input appreciated. ID Dr Almaraz on board agreed with giovanni Plan for ERCP today, Surgery on board NPO since midnight urine culture and bile cx negative MRSA non detected Echo 03/23/18: Mild t moderate with mild regurgitation, normal LV function. EF 60-65%. 2) Leukocytosis w L shift, improving WBC trending down 19.4 from 33.3 yesterday likely secondary to stress dose steroids for sepsis 3) Thrombocytopenia likely secondary to meds vs sepsis transfuse 1 unit if available prior to ERCP discussed with GI 4) Elevated transaminases Hyperbilirubinemia trending down, improving 5) CAD holding Plavix pending surgery 6) DVT prophylaxis no heparin for 2/2 thrombocytopenia Will restart on Tuesday after procedure. <Pacheco Holt - Last Filed: 03/24/18 15:55> CCU Objective - Vital Signs / Intake & Output Vital Signs (Last 4 hours): Vital Signs Temp Pulse Resp BP Pulse Ox 03/24/18 15:20 98 F 102 H 22 127/75 99 03/24/18 15:14 98 F 100 H 30 H 135/71 100 03/24/18 13:00 98.1 F 62 25 H 109/53 L 03/24/18 12:17 98.7 F 70 31 H 110/62 03/24/18 12:00 98.7 F 63 25 H 99/65 L 98 Intake and Output (Last 8hrs): Intake & Output 03/24/18 03/24/18 03/24/18 06:59 14:59 22:59 Intake Total 1000 1623 0 Output Total 1240 Balance -240 1623 0 Intake: IV 900 850 0 Intake, Piggyback 100 350 Blood Product 398 Apheresis Plts Acda Lr 199 Irr 3rd Unit [id number] Other 25 Apheresis Plts Acda Lr 25 Irr 3rd Unit [id number] Output: Drainage 40 Right Upper Abdomen 40 Urine 1200 Urethral (Mireles) 1200 - Medications Active Medications: Active Medications Generic Name Dose Route Start Last Admin Trade Name Freq PRN Reason Stop Dose Admin Acetaminophen 650 mg 03/22/18 16:24 Tylenol 325mg Tab PO Q8 PRN Fever >100.4 F Albuterol/Ipratropium 3 ml 03/22/18 16:25 03/23/18 08:30 Duoneb 3 Mg/0.5 Mg (3 Ml) Ud INH 3 ml RQID PRN Administration Shortness of Breath Hydromorphone HCl 0.5 mg 03/22/18 16:15 Dilaudid IVP Q4 PRN Pain, moderate (4-7) Meropenem 1 gm/ Sodium 100 mls @ 100 mls/hr 03/23/18 01:00 03/24/18 08:45 Chloride IVPB 100 mls/hr Q8 MARQUIS Administration Protocol Vancomycin HCl 1 gm/ Sodium 250 mls @ 166.667 mls/hr 03/23/18 10:15 03/24/18 10:18 Chloride IVPB 166.667 mls/hr DAILY MARQUIS Administration Protocol Potassium Chloride/Dextrose/Sod Cl 1,000 mls @ 75 mls/hr 03/23/18 18:00 03/24 08:45 Potassium Chl 20 Meq In D5-1/2ns IV 03/24/18 17:52 75 mls/hr .[id number] MARQUIS Administration Ondansetron HCl 4 mg 03/22/18 16:25 Zofran Inj IVP Q6 PRN Nausea/Vomiting Pantoprazole Sodium 40 mg 03/22/18 16:15 03/24/18 08:45 Protonix Inj IVP 40 mg DAILY MARQUIS Administration - Patient Studies Lab Studies: Microbiology Studies 03/22/18 19:05 MRSA Culture (Admit) - Final Naris MRSA NOT DETECTED Lab Studies 03/24/18 03/24/18 Range/Units 04:20 04:20 WBC 19.4 H (4.8-10.8) K/uL RBC 3.20 L (4.40-5.90) Mil/uL Hgb 9.9 L (12.0-18.0) g/dL Hct 29.9 L (35.0-51.0) % MCV 93.5 (80.0-94.0) fl MCH 31.0 (27.0-31.0) pg MCHC 33.2 (33.0-37.0) g/dL RDW 14.8 H (11.5-14.5) % Plt Count 64 L (130-400) K/uL MPV 10.7 (7.2-11.7) fl Neut % (Auto) 84.1 H (50.0-75.0) % Lymph % (Auto) 12.2 L (20.0-40.0) % [place] % (Auto) 2.6 (0.0-10.0) % Eos % (Auto) 1.0 (0.0-4.0) % Baso % (Auto) 0.1 (0.0-2.0) % Neut # (Auto) 16.3 H (1.8-7.0) K/uL Lymph # (Auto) 2.4 (1.0-4.3) K/uL [place] # (Auto) 0.5 (0.0-0.8) K/uL Eos # (Auto) 0.2 (0.0-0.7) K/uL Baso # (Auto) 0.0 (0.0-0.2) K/uL Sodium 140 (132-148) mmol/l Potassium 3.8 (3.6-5.0) MMOL/L Chloride 115 H (98-107) mmol/L Carbon Dioxide 23 (22-30) mmol/L Anion Gap 6 L (10-20) BUN 22 H (9-20) mg/dl Creatinine 0.6 L (0.8-1.5) mg/dl Est GFR ( Amer) > 60 Est GFR (Non-Af Amer) > 60 Random Glucose 103 (75-110) mg/dL Calcium 7.4 L (8.4-10.2) mg/dL Phosphorus 1.1 L (2.5-4.5) mg/dl Magnesium 2.1 (1.6-2.3) MG/DL Total Bilirubin 1.1 (0.2-1.3) mg/dl AST 65 H D (17-59) U/L ALT 223 H D (21-72) U/L Alkaline Phosphatase 107 (38-126) U/L Total Protein 4.5 L (6.3-8.2) G/DL Albumin 2.1 L (3.5-5.0) g/dL Globulin 2.4 (2.2-3.9) gm/dL Albumin/Globulin Ratio 0.9 L (1.0-2.1) Laboratory Results - last 24 hr 03/24/18 03/24/18 04:20 04:20 WBC 19.4 H RBC 3.20 L Hgb 9.9 L Hct 29.9 L MCV 93.5 MCH 31.0 MCHC 33.2 RDW 14.8 H Plt Count 64 L MPV 10.7 Neut % (Auto) 84.1 H Lymph % (Auto) 12.2 L [place] % (Auto) 2.6 Eos % (Auto) 1.0 Baso % (Auto) 0.1 Neut # (Auto) 16.3 H Lymph # (Auto) 2.4 [place] # (Auto) 0.5 Eos # (Auto) 0.2 Baso # (Auto) 0.0 Sodium 140 Potassium 3.8 Chloride 115 H Carbon Dioxide 23 Anion Gap 6 L BUN 22 H Creatinine 0.6 L Est GFR ( Amer) > 60 Est GFR (Non-Af Amer) > 60 Random Glucose 103 Calcium 7.4 L Phosphorus 1.1 L Magnesium 2.1 Total Bilirubin 1.1 AST 65 H D ALT 223 H D Alkaline Phosphatase 107 Total Protein 4.5 L Albumin 2.1 L Globulin 2.4 Albumin/Globulin Ratio 0.9 L Attending/Attestation - Attestation I have personally seen and examined this patient.: Yes I have fully participated in the care of the patient.: Yes I have reviewed all pertinent clinical information: Yes Notes (Text): 03/24/18 15:51 I have seen and examined the patient. Medical records, lab studies, and imaging were reviewed by me and a management plan was formulated on multidisciplinary rounds with resident Dr. Perez. I agree with their above documented assessment and plan. Ttitrated off of pressors. Patient underwent ERCP, unsuccessful. Biliary tree could not be cannulated. Will obtain HIDA scan to better evaluated function of tree, as per GI. Patient may have to remain with biliary drain. A usp solution is unclear. Critical Care Time 35 minutes. Multi-disciplinary rounds were performed with house staff, nursing, speech therapy, respiratory therapy, pharmacy and nutrition with integrated input from the primary team/attending and other consulting services. The documented time is cumulative and includes review of patient data/exams/labs/chart review and examination of the patient on rounds and throughout the day; time is exclusive of any procedures or teaching time.
[2018-03-24] MEDS ORDERED: Potassium Phosphate 15 MMOLE in Dextrose 5% In Water 250 ML IV ONE (10:15)
[2018-03-24] MEDS ORDERED: Indomethacin 50 MG Suppository PR ONE ×2 (12:00→14:15)
[2018-03-24] MEDS ORDERED: Etomidate 20 mg/10ml Inj IV ONE (13:55)
[2018-03-24] MEDS ORDERED: Lactated Ringer's 500 ML IV ONE (13:57)
[2018-03-24] MEDS ORDERED: Rocuronium 10 mg/ml (5 ml) ONE (14:02)
[2018-03-24] MEDS ORDERED: Neostigmine 1:1000 (1 mg/ml) Inj ONE (14:03)
[2018-03-24] MEDS ORDERED: Propofol 10 mg/ml Inj (20 ML) ONE (15:22)
[2018-03-24] MEDS ORDERED: Albuterol 0.083% Inhal Sol (2.5 mg/3 mL) UD INH ONE (15:23)
--- NOTE | 2018-03-24 16:20 | RAD ---
Date of service: 03/24/2018 PROCEDURE: Intraoperative Fluoroscopy. HISTORY: ATTEMPTED ERCP FINDINGS: Fluoroscopic assistance was provided for ERCP. Please refer to the operative report from [facility]AV[facility] Delgado. Total fluoroscopic time (continuous mode) utilized during the procedure 91.8 (seconds). Total exam DLP: 35.27 (mGy).
--- NOTE | 2018-03-24 19:50 | CP.PCM.PN ---
Subjective - Date & Time of Evaluation Date of Evaluation: 03/24/18 Time of Evaluation: 08:00 - Subjective Subjective: clinically improved denies fever pain Objective - Vital Signs/Intake and Output Vital Signs (last 24 hours): Temp Pulse Resp BP Pulse Ox 98.3 F 64 21 88/64 L 100 03/24/18 16:00 03/24/18 18:00 03/24/18 18:00 03/24/18 18:00 03/24/18 18:00 Intake and Output: 03/24/18 03/25/18 18:59 06:59 Intake Total 2413 Output Total 940 Balance 1473 - Medications Medications: Current Medications Acetaminophen (Tylenol 325mg Tab) 650 mg PO Q8 PRN PRN Reason: Fever >100.4 F Albuterol/Ipratropium (Duoneb 3 Mg/0.5 Mg (3 Ml) Ud) 3 ml INH RQID PRN PRN Reason: Shortness of Breath Last Admin: 03/23/18 08:30 Dose: 3 ml Hydromorphone HCl (Dilaudid) 0.5 mg IVP Q4 PRN PRN Reason: Pain, moderate (4-7) Meropenem 1 gm/ Sodium (Chloride) 100 mls @ 100 mls/hr IVPB Q8 MARQUIS PRN Reason: Protocol Last Admin: 03/24/18 16:24 Dose: 100 mls/hr Vancomycin HCl 1 gm/ Sodium (Chloride) 250 mls @ 166.667 mls/hr IVPB DAILY MARQUIS PRN Reason: Protocol Last Admin: 03/24/18 10:18 Dose: 166.667 mls/hr Ondansetron HCl (Zofran Inj) 4 mg IVP Q6 PRN PRN Reason: Nausea/Vomiting Pantoprazole Sodium (Protonix Inj) 40 mg IVP DAILY [facility] Last Admin: 03/24/18 08:45 Dose: 40 mg - Labs Labs: 03/24/18 04:20 03/24/18 04:20 PT 14.7 Seconds (9.8-13.1) H 03/23/18 10:40 INR 1.3 03/23/18 10:40 - Constitutional Appears: Non-toxic, Chronically Ill - Head Exam Head Exam: NORMOCEPHALIC - Eye Exam Eye Exam: PERRL - ENT Exam ENT Exam: Mucous Membranes Dry - Neck Exam Neck Exam: absent: Lymphadenopathy - Respiratory Exam Respiratory Exam: Decreased Breath Sounds - Cardiovascular Exam Cardiovascular Exam: REGULAR RHYTHM - GI/Abdominal Exam GI & Abdominal Exam: Distended, Soft, Tenderness Additional comments: drain in place scant drainage - Rectal Exam Rectal Exam: Deferred - Exam Exam: NORMAL INSPECTION - Extremities Exam Extremities Exam: absent: Pedal Edema - Back Exam Back Exam: absent: CVA tenderness (L), CVA tenderness (R) Assessment and Plan (1) Cholangitis Status: Acute (2) Cholecystitis Status: Acute (3) Septic shock Status: Acute (4) Sepsis Status: Acute - Assessment and Plan (Free Text) Assessment: iv vanco/merrem in progress improving will check vanco levels
[2018-03-24] MEDS: Albuterol-Ipratrop 3 mg / 0.5 (3 ml) UD INH PRN (22:04)
[2018-03-25] MEDS: Meropenem 1 GM in Sodium Chloride 0.9% 100 ML IVPB SCH ×3 (00:20→16:24)
[2018-03-25] MEDS: guaiFENesin 100 mg/5 ml Syrup UD PO PRN ×2 (03:47→22:04)
[2018-03-25] MEDS: Albuterol-Ipratrop 3 mg / 0.5 (3 ml) UD INH PRN ×3 (03:59→18:33)
[2018-03-25 04:44] LABS: BASO % 0.4 % (0.0-2.0); EOS # 0.4 K/uL (0.0-0.7); HEMOGLOBIN 10.3 g/dL (12.0-18.0); LYMPH # 1.9 K/uL (1.0-4.3); LYMPH % 18.6 % (20.0-40.0); MEAN CELL VOLUME 92.3 fl (80.0-94.0); MEAN CORPUSCULAR HEMOGLOBIN 31.5 pg (27.0-31.0); MEAN CORPUSCULAR HGB CONC 34.1 g/dL (33.0-37.0); MONO # 0.6 K/uL (0.0-0.8); MONO % 5.6 % (0.0-10.0); NEUT # 7.2 K/uL (1.8-7.0); NEUT % 71.4 % (50.0-75.0); RBC 3.28 Mil/uL (4.40-5.90); RED CELL DISTRIBUTION WIDTH 14.6 % (11.5-14.5); WHITE BLOOD COUNT 10.1 K/uL (4.8-10.8)
[2018-03-25 05:05] LABS: ALB/GLOB RATIO 0.9 (1.0-2.1); ALBUMIN 2.2 g/dL (3.5-5.0); ALT/SGPT 161 U/L (21-72); AST/SGOT 41 U/L (17-59); BLOOD UREA NITROGEN 17 mg/dl (9-20); CALCIUM 7.5 mg/dL (8.4-10.2); GFR NON-AFRICAN AMERICAN > 60
--- NOTE | 2018-03-25 08:20 | CP.PCM.PN ---
Subjective - Date & Time of Evaluation Date of Evaluation: 03/25/18 Time of Evaluation: 08:30 - Subjective Subjective: Patient seen and examined bedside. Feeling a little better. No acute issues overnight. Hemodynamically stable, afebrile s/p ERCP yesterday Denies any abdominal pain or discomfort , feels bloated , passing flatus Tolerating liquid diet Margareth tube to RUQ with bilious output 340 ml last 24 hours Objective - Vital Signs/Intake and Output Vital Signs (last 24 hours): Temp Pulse Resp BP Pulse Ox 99 F 66 17 107/60 100 03/25/18 08:00 03/25/18 08:00 03/25/18 08:00 03/25/18 08:00 03/25/18 08:00 Intake and Output: 03/25/18 03/25/18 06:59 18:59 Intake Total 1000 100 Output Total 2000 Balance -1000 100 - Medications Medications: Current Medications Acetaminophen (Tylenol 325mg Tab) 650 mg PO Q8 PRN PRN Reason: Fever >100.4 F Albuterol/Ipratropium (Duoneb 3 Mg/0.5 Mg (3 Ml) Ud) 3 ml INH RQID PRN PRN Reason: Shortness of Breath Last Admin: 03/25/18 08:06 Dose: 3 ml Guaifenesin (Robitussin) 100 mg PO Q4 PRN PRN Reason: Cough Last Admin: 03/25/18 03:47 Dose: 100 mg Hydromorphone HCl (Dilaudid) 0.5 mg IVP Q4 PRN PRN Reason: Pain, moderate (4-7) Meropenem 1 gm/ Sodium (Chloride) 100 mls @ 100 mls/hr IVPB Q8 MARQUIS PRN Reason: Protocol Last Admin: 03/25/18 08:06 Dose: 100 mls/hr Vancomycin HCl 1 gm/ Sodium (Chloride) 250 mls @ 166.667 mls/hr IVPB DAILY MARQUIS PRN Reason: Protocol Last Admin: 03/24/18 10:18 Dose: 166.667 mls/hr Potassium Chloride/Dextrose/Sod Cl (Potassium Chl 20 Meq In D5-1/2ns) 1,000 mls @ 75 mls/hr IV .[id number] [facility] Stop: 03/25/18 22:33 Last Admin: 03/24/18 23:00 Dose: 75 mls/hr Ondansetron HCl (Zofran Inj) 4 mg IVP Q6 PRN PRN Reason: Nausea/Vomiting Pantoprazole Sodium (Protonix Inj) 40 mg IVP DAILY MARQUIS Last Admin: 03/25/18 08:09 Dose: 40 mg - Labs Labs: 03/25/18 04:15 03/25/18 04:15 PT 14.7 Seconds (9.8-13.1) H 03/23/18 10:40 INR 1.3 03/23/18 10:40 - Constitutional Appears: Non-toxic, No Acute Distress - Head Exam Head Exam: ATRAUMATIC, NORMOCEPHALIC - Eye Exam Eye Exam: EOMI, PERRL Pupil Exam: NORMAL ACCOMODATION - ENT Exam ENT Exam: Mucous Membranes Dry, Normal Exam - Neck Exam Neck Exam: Full ROM, Normal Inspection - Respiratory Exam Respiratory Exam: Clear to Ausculation Bilateral, NORMAL BREATHING PATTERN. absent: Rales, Rhonchi, Wheezes - Cardiovascular Exam Cardiovascular Exam: REGULAR RHYTHM, RRR, +S1, +S2. absent: JVD - GI/Abdominal Exam GI & Abdominal Exam: Distended, Soft, Hypoactive Bowel Sounds. absent: Guarding , Rigid, Tenderness, Rebound - Rectal Exam Rectal Exam: Deferred - Extremities Exam Extremities Exam: Full ROM (-), Normal Inspection. 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 At present clinically stable, WBC trended down to normal 10 KLFT-s trending down AST/ALT 41/161 Gulshan 1 , tolerating liquid diet 1.Septic Shock secondary to Acute Cholangitis and Acute Cholecystitis Clinically improving Off pressors, afebrile, WBC normalized to normal [address] tube[address] place ( plased 5 days ago 0 with bilious output 340 ml last 24 hours Continue Merrem 1 gm and Vancomycin blood and bile cultures + EColi, E. Faecalis GI and Surgery evaluations appreciated. s/p ERCP yesterday 03/24 that was not successful Continue liquid diet for now LFT-s ,Gulshan , WBC - improving , afebrile and WBC normal- -- no emergency for HIDA scan at present 2.CAD,HLD holding Plavix no heparin for DVT 2/2 thrombocytopenia 3.Thrombocytopenia possibly secondary to meds vs sequestration vs sepsis no bleeding plt 85 K 4. Mild anemia Stable Hgb 10.3 5. DVT prophylaxis SCD
--- NOTE | 2018-03-25 08:36 | CP.CCUPN ---
CCU Subjective - Physician Review Events Since Last Encounter (Free Text): Patient awake, on O2 supplement, no distress, no fever, no pressors, events reviewed CCU Objective - Vital Signs / Intake & Output Vital Signs (Last 4 hours): Vital Signs Temp Pulse Resp BP Pulse Ox 03/25/18 08:00 99 F 66 17 107/60 100 03/25/18 06:00 63 12 97/58 L 98 Intake and Output (Last 8hrs): Intake & Output 03/24/18 03/25/18 03/25/18 22:59 06:59 14:59 Intake Total 1090 700 100 Output Total 940 2000 Balance 150 -1300 100 Intake: IV 600 600 Intake, Piggyback 250 100 100 Oral 240 Output: Drainage 140 200 Right Upper Abdomen 140 200 Urine 800 1800 Urethral (Mireles) 800 1800 Other: # Bowel Movements 1 - Physical Exam Head: Positive for: Atraumatic, Normocephalic Pupils: Positive for: PERRL Extroacular Muscles: Positive for: EOMI Conjunctiva: Positive for: Normal. Negative for: Injected, Icteric Ears: Positive for: Normal Mouth: Positive for: Moist Mucous Membranes Pharnyx: Positive for: Normal Nose (External): Positive for: Atraumatic Nose (Internal): Positive for: Normal Inspection Neck: Positive for: Normal Range of Motion, Trachea Midline Respiratory/Chest: Positive for: Wheezes, Decreased Breath Sounds, Rhonchi. Negative for: Respiratory Distress, Accessory Muscle Use, Rales, Retracting Cardiovascular: Positive for: Regular Rate and Rhythm, Normal S1, S2. Negative for: Murmurs, Irregular Rhythm, Tachycardic, Bradycardic Abdomen: Positive for: Distention (mild), Normal Bowel Sounds. Negative for: Peritoneal Signs, Rebound, Guarding Back: Negative for: CVA Tenderness Upper Extremity: Positive for: Normal Inspection, Capillary Refill < 2s. Negative for: Cyanosis, Edema Lower Extremity: Positive for: Normal Inspection, Capillary Refill < 2 s. Negative for: Edema, CALF TENDERNESS Neurological: Positive for: Speech Normal, Motor Func Grossly Intact Psychiatric: Positive for: Alert - Medications Active Medications: Active Medications Generic Name Dose Route Start Last Admin Trade Name Freq PRN Reason Stop Dose Admin Acetaminophen 650 mg 03/22/18 16:24 Tylenol 325mg Tab PO Q8 PRN Fever >100.4 F Albuterol/Ipratropium 3 ml 03/22/18 16:25 03/25/18 08:06 Duoneb 3 Mg/0.5 Mg (3 Ml) Ud INH 3 ml RQID PRN Administration Shortness of Breath Guaifenesin 100 mg 03/25/18 03:39 03/25/18 03:47 Robitussin PO 100 mg Q4 PRN Administration Cough Hydromorphone HCl 0.5 mg 03/22/18 16:15 Dilaudid IVP Q4 PRN Pain, moderate (4-7) Meropenem 1 gm/ Sodium 100 mls @ 100 mls/hr 03/23/18 01:00 03/25/18 08:06 Chloride IVPB 100 mls/hr Q8 [facility] Administration Protocol Vancomycin HCl 1 gm/ Sodium 250 mls @ 166.667 mls/hr 03/23/18 10:15 03/24/18 10:18 Chloride IVPB 166.667 mls/hr DAILY [facility] Administration Protocol Potassium Chloride/Dextrose/Sod Cl 1,000 mls @ 75 mls/hr 03/24/18 22:45 03/24 23:00 Potassium Chl 20 Meq In D5-1/2ns IV 03/25/18 22:33 75 mls/hr .[id number] [facility] Administration Ondansetron HCl 4 mg 03/22/18 16:25 Zofran Inj IVP Q6 PRN Nausea/Vomiting Pantoprazole Sodium 40 mg 03/22/18 16:15 03/25/18 08:09 Protonix Inj IVP 40 mg DAILY [facility] Administration - Patient Studies Lab Studies: Lab Studies 03/25/18 03/25/18 03/25/18 Range/Units 04:15 04:15 04:15 WBC 10.1 (4.8-10.8) K/uL RBC 3.28 L (4.40-5.90) Mil/uL Hgb 10.3 L (12.0-18.0) g/dL Hct 30.2 L (35.0-51.0) % MCV 92.3 (80.0-94.0) fl MCH 31.5 H (27.0-31.0) pg MCHC 34.1 (33.0-37.0) g/dL RDW 14.6 H (11.5-14.5) % Plt Count 85 L D (130-400) K/uL MPV 10.0 (7.2-11.7) fl Neut % (Auto) 71.4 (50.0-75.0) % Lymph % (Auto) 18.6 L (20.0-40.0) % [place] % (Auto) 5.6 (0.0-10.0) % Eos % (Auto) 4.0 (0.0-4.0) % Baso % (Auto) 0.4 (0.0-2.0) % Neut # (Auto) 7.2 H (1.8-7.0) K/uL Lymph # (Auto) 1.9 (1.0-4.3) K/uL [place] # (Auto) 0.6 (0.0-0.8) K/uL Eos # (Auto) 0.4 (0.0-0.7) K/uL Baso # (Auto) 0.0 (0.0-0.2) K/uL Sodium 140 (132-148) mmol/l Potassium 4.1 (3.6-5.0) MMOL/L Chloride 114 H (98-107) mmol/L Carbon Dioxide 25 (22-30) mmol/L Anion Gap 5 L (10-20) BUN 17 (9-20) mg/dl Creatinine 0.5 L (0.8-1.5) mg/dl Est GFR ( Amer) > 60 Est GFR (Non-Af Amer) > 60 Random Glucose 120 H (75-110) mg/dL Calcium 7.5 L (8.4-10.2) mg/dL Phosphorus 2.3 L (2.5-4.5) mg/dl Magnesium 1.9 (1.6-2.3) MG/DL Total Bilirubin 1.0 (0.2-1.3) mg/dl AST 41 (17-59) U/L ALT 161 H D (21-72) U/L Alkaline Phosphatase 122 (38-126) U/L Total Protein 4.7 L (6.3-8.2) G/DL Albumin 2.2 L (3.5-5.0) g/dL Globulin 2.5 (2.2-3.9) gm/dL Albumin/Globulin Ratio 0.9 L (1.0-2.1) Vancomycin Trough 7.6 (5.0-10.0) ug/mL Laboratory Results - last 24 hr 03/25/18 03/25/18 03/25/18 04:15 04:15 04:15 WBC 10.1 RBC 3.28 L Hgb 10.3 L Hct 30.2 L MCV 92.3 MCH 31.5 H MCHC 34.1 RDW 14.6 H Plt Count 85 L D MPV 10.0 Neut % (Auto) 71.4 Lymph % (Auto) 18.6 L [place] % (Auto) 5.6 Eos % (Auto) 4.0 Baso % (Auto) 0.4 Neut # (Auto) 7.2 H Lymph # (Auto) 1.9 [place] # (Auto) 0.6 Eos # (Auto) 0.4 Baso # (Auto) 0.0 Sodium 140 Potassium 4.1 Chloride 114 H Carbon Dioxide 25 Anion Gap 5 L BUN 17 Creatinine 0.5 L Est GFR ( Amer) > 60 Est GFR (Non-Af Amer) > 60 Random Glucose 120 H Calcium 7.5 L Phosphorus 2.3 L Magnesium 1.9 Total Bilirubin 1.0 AST 41 ALT 161 H D Alkaline Phosphatase 122 Total Protein 4.7 L Albumin 2.2 L Globulin 2.5 Albumin/Globulin Ratio 0.9 L Vancomycin Trough 7.6 Critical Care Progress Note - Nutrition Nutrition: Nutrition Category Date Time Status Liquid Diet [DIET] Diets 03/24/18 Dinner Active Assessment/Plan - Assessment and Plan (Free Text) Assessment: A/P Septic shock improving, cholangitis/cholycystitis s/p ERCP, thrombocytopenia, CAD, hyperlipedemia - O2 supplement - Pulmonary toilets - HIDA scan - GI follow up - Continue meds
--- NOTE | 2018-03-25 08:58 | CP.PCM.PN ---
Subjective - Date & Time of Evaluation Date of Evaluation: 03/25/18 Time of Evaluation: 08:54 - Subjective Subjective: General Surgery - Dr. Garcia/Dr. Mcintyre Pt S&E. URIEL. Pt had an attempted ERCP yesterday, awaiting report. He denies any abdominal pain, nausea/vomiting. No Fevers/Chills/SOB/Chest pain. Margareth tube in place with bilious drainage, 340cc total. Objective - Vital Signs/Intake and Output Vital Signs (last 24 hours): Temp Pulse Resp BP Pulse Ox 99 F 66 17 107/60 100 03/25/18 08:00 03/25/18 08:00 03/25/18 08:00 03/25/18 08:00 03/25/18 08:00 Intake and Output: 03/25/18 03/25/18 06:59 18:59 Intake Total 1000 100 Output Total 2000 Balance -1000 100 - Medications Medications: Current Medications Acetaminophen (Tylenol 325mg Tab) 650 mg PO Q8 PRN PRN Reason: Fever >100.4 F Albuterol/Ipratropium (Duoneb 3 Mg/0.5 Mg (3 Ml) Ud) 3 ml INH RQID PRN PRN Reason: Shortness of Breath Last Admin: 03/25/18 08:06 Dose: 3 ml Guaifenesin (Robitussin) 100 mg PO Q4 PRN PRN Reason: Cough Last Admin: 03/25/18 03:47 Dose: 100 mg Hydromorphone HCl (Dilaudid) 0.5 mg IVP Q4 PRN PRN Reason: Pain, moderate (4-7) Meropenem 1 gm/ Sodium (Chloride) 100 mls @ 100 mls/hr IVPB Q8 [facility] PRN Reason: Protocol Last Admin: 03/25/18 08:06 Dose: 100 mls/hr Vancomycin HCl 1 gm/ Sodium (Chloride) 250 mls @ 166.667 mls/hr IVPB DAILY [facility] PRN Reason: Protocol Last Admin: 03/24/18 10:18 Dose: 166.667 mls/hr Potassium Chloride/Dextrose/Sod Cl (Potassium Chl 20 Meq In D5-1/2ns) 1,000 mls @ 75 mls/hr IV .[id number] [facility] Stop: 03/25/18 22:33 Last Admin: 03/24/18 23:00 Dose: 75 mls/hr Ondansetron HCl (Zofran Inj) 4 mg IVP Q6 PRN PRN Reason: Nausea/Vomiting Pantoprazole Sodium (Protonix Inj) 40 mg IVP DAILY [facility] Last Admin: 03/25/18 08:09 Dose: 40 mg - Labs Labs: 03/25/18 04:15 03/25/18 04:15 PT 14.7 Seconds (9.8-13.1) H 03/23/18 10:40 INR 1.3 03/23/18 10:40 - Constitutional Appears: No Acute Distress - Head Exam Head Exam: ATRAUMATIC, NORMAL INSPECTION, NORMOCEPHALIC - Eye Exam Eye Exam: Normal appearance - Respiratory Exam Respiratory Exam: NORMAL BREATHING PATTERN. absent: Respiratory Distress - Cardiovascular Exam Cardiovascular Exam: REGULAR RHYTHM - GI/Abdominal Exam GI & Abdominal Exam: Soft. absent: Distended, Firm, Guarding, Rigid, Tenderness , Rebound - Neurological Exam Neurological Exam: Alert, Oriented x3 - Psychiatric Exam Psychiatric exam: Normal Affect, Normal Mood - Skin Skin Exam: Dry, Intact Assessment and Plan - Assessment and Plan (Free Text) Assessment: 82 M w/ acute cholecystitis, s/p attempted ERCP yesterday - Continue NPO/IVF - Cont IV Abx - F/U ERCP report - F/U HIDA scan - clamp drain during procedure - Cont pain control prn - Monitor drain output DW Dr Garcia/Dr. Francisco Javier Lara PGY4
[2018-03-25] MEDS: Potassium Ch 20mEq in D5-1/2NS 1,000 ML IV SCH (16:25)
[2018-03-26] MEDS: Meropenem 1 GM in Sodium Chloride 0.9% 100 ML IVPB SCH ×3 (00:28→16:36)
[2018-03-26] MEDS ORDERED: Dextrose 5%/0.45% NS 1,000 ML IV SCH (05:15)
[2018-03-26] MEDS: guaiFENesin 100 mg/5 ml Syrup UD PO PRN ×2 (05:29→20:25)
[2018-03-26] MEDS: Albuterol-Ipratrop 3 mg / 0.5 (3 ml) UD INH PRN ×3 (05:33→15:54)
[2018-03-26 05:37] LABS: HEMOGLOBIN 10.2 g/dL (12.0-18.0); MEAN CELL VOLUME 92.6 fl (80.0-94.0); MEAN CORPUSCULAR HGB CONC 33.4 g/dL (33.0-37.0); RBC 3.28 Mil/uL (4.40-5.90); RED CELL DISTRIBUTION WIDTH 14.4 % (11.5-14.5); WHITE BLOOD COUNT 11.5 K/uL (4.8-10.8)
[2018-03-26 05:58] LABS: ALB/GLOB RATIO 0.8 (1.0-2.1); ALBUMIN 2.1 g/dL (3.5-5.0); ALT/SGPT 118 U/L (21-72); AST/SGOT 29 U/L (17-59); BLOOD UREA NITROGEN 12 mg/dl (9-20); CALCIUM 7.7 mg/dL (8.4-10.2); GFR NON-AFRICAN AMERICAN > 60
--- NOTE | 2018-03-26 07:22 | CP.CCUPN ---
CCU Subjective - Physician Review Events Since Last Encounter (Free Text): Patient awake, on O2 supplement, no distress, no fever, no pressors, events reviewed CCU Objective - Vital Signs / Intake & Output Vital Signs (Last 4 hours): Vital Signs Temp Pulse Resp BP Pulse Ox 03/26/18 06:00 80 21 107/66 100 03/26/18 04:00 98.6 F 66 35 H 98/57 L 97 Intake and Output (Last 8hrs): Intake & Output 03/25/18 03/26/18 03/26/18 22:59 06:59 14:59 Intake Total 1405 700 Output Total 1900 2400 Balance -495 -1700 Intake: IV 825 600 Intake, Piggyback 100 100 Oral 480 Output: Drainage 100 200 Right Upper Abdomen 100 200 Urine 1800 2200 Urethral (Mireles) 1800 2200 Other: # Bowel Movements 0 0 - Physical Exam Head: Positive for: Atraumatic, Normocephalic Pupils: Positive for: PERRL Extroacular Muscles: Positive for: EOMI Conjunctiva: Positive for: Normal. Negative for: Injected, Icteric Ears: Positive for: Normal Mouth: Positive for: Moist Mucous Membranes Pharnyx: Positive for: Normal Nose (External): Positive for: Atraumatic Nose (Internal): Positive for: Normal Inspection Neck: Positive for: Normal Range of Motion, Trachea Midline Respiratory/Chest: Positive for: Wheezes, Decreased Breath Sounds, Rhonchi. Negative for: Respiratory Distress, Accessory Muscle Use, Rales, Retracting Cardiovascular: Positive for: Regular Rate and Rhythm, Normal S1, S2. Negative for: Murmurs, Irregular Rhythm, Tachycardic, Bradycardic Abdomen: Positive for: Distention (mild), Normal Bowel Sounds. Negative for: Peritoneal Signs, Rebound, Guarding Back: Negative for: CVA Tenderness Upper Extremity: Positive for: Normal Inspection, Capillary Refill < 2s. Negative for: Cyanosis, Edema Lower Extremity: Positive for: Normal Inspection, Capillary Refill < 2 s. Negative for: Edema, CALF TENDERNESS Neurological: Positive for: Speech Normal, Motor Func Grossly Intact Psychiatric: Positive for: Alert - Medications Active Medications: Active Medications Generic Name Dose Route Start Last Admin Trade Name Freq PRN Reason Stop Dose Admin Acetaminophen 650 mg 03/22/18 16:24 Tylenol 325mg Tab PO Q8 PRN Fever >100.4 F Albuterol/Ipratropium 3 ml 03/22/18 16:25 03/26/18 05:33 Duoneb 3 Mg/0.5 Mg (3 Ml) Ud INH 3 ml RQID PRN Administration Shortness of Breath Guaifenesin 100 mg 03/25/18 03:39 03/26/18 05:29 Robitussin PO 100 mg Q4 PRN Administration Cough Hydromorphone HCl 0.5 mg 03/22/18 16:15 Dilaudid IVP Q4 PRN Pain, moderate (4-7) Meropenem 1 gm/ Sodium 100 mls @ 100 mls/hr 03/23/18 01:00 03/26/18 00:28 Chloride IVPB 100 mls/hr Q8 [facility] Administration Protocol Vancomycin HCl 1 gm/ Sodium 250 mls @ 166.667 mls/hr 03/23/18 10:15 03/25/18 09:56 Chloride IVPB 166.667 mls/hr DAILY [facility] Administration Protocol Dextrose/Sodium Chloride 1,000 mls @ 75 mls/hr 03/26/18 05:15 03/26/18 05:29 Dextrose 5%/0.45% Ns 1000 Ml IV 03/27/18 05:04 75 mls/hr .[id number] [facility] Administration Ondansetron HCl 4 mg 03/22/18 16:25 Zofran Inj IVP Q6 PRN Nausea/Vomiting Pantoprazole Sodium 40 mg 03/22/18 16:15 03/25/18 08:09 Protonix Inj IVP 40 mg DAILY [facility] Administration - Patient Studies Lab Studies: Lab Studies 03/26/18 03/26/18 Range/Units 04:12 04:12 WBC 11.5 H (4.8-10.8) K/uL RBC 3.28 L (4.40-5.90) Mil/uL Hgb 10.2 L (12.0-18.0) g/dL Hct 30.4 L (35.0-51.0) % MCV 92.6 (80.0-94.0) fl MCH 31.0 (27.0-31.0) pg MCHC 33.4 (33.0-37.0) g/dL RDW 14.4 (11.5-14.5) % Plt Count 88 L (130-400) K/uL Sodium 139 (132-148) mmol/l Potassium 4.0 (3.6-5.0) MMOL/L Chloride 110 H (98-107) mmol/L Carbon Dioxide 25 (22-30) mmol/L Anion Gap 8 L (10-20) BUN 12 (9-20) mg/dl Creatinine 0.5 L (0.8-1.5) mg/dl Est GFR ( Amer) > 60 Est GFR (Non-Af Amer) > 60 Random Glucose 117 H (75-110) mg/dL Calcium 7.7 L (8.4-10.2) mg/dL Total Bilirubin 1.2 (0.2-1.3) mg/dl AST 29 (17-59) U/L ALT 118 H D (21-72) U/L Alkaline Phosphatase 121 (38-126) U/L Total Protein 4.6 L (6.3-8.2) G/DL Albumin 2.1 L (3.5-5.0) g/dL Globulin 2.5 (2.2-3.9) gm/dL Albumin/Globulin Ratio 0.8 L (1.0-2.1) Laboratory Results - last 24 hr 03/26/18 03/26/18 04:12 04:12 WBC 11.5 H RBC 3.28 L Hgb 10.2 L Hct 30.4 L MCV 92.6 MCH 31.0 MCHC 33.4 RDW 14.4 Plt Count 88 L Sodium 139 Potassium 4.0 Chloride 110 H Carbon Dioxide 25 Anion Gap 8 L BUN 12 Creatinine 0.5 L Est GFR ( Amer) > 60 Est GFR (Non-Af Amer) > 60 Random Glucose 117 H Calcium 7.7 L Total Bilirubin 1.2 AST 29 ALT 118 H D Alkaline Phosphatase 121 Total Protein 4.6 L Albumin 2.1 L Globulin 2.5 Albumin/Globulin Ratio 0.8 L Critical Care Progress Note - Nutrition Nutrition: Nutrition Category Date Time Status Liquid Diet [DIET] Diets 03/25/18 Lunch Active Assessment/Plan - Assessment and Plan (Free Text) Assessment: A/P Septic shock improving, cholangitis/cholycystitis s/p ERCP, thrombocytopenia, CAD, hyperlipedemia - O2 supplement - Pulmonary toilets - GI follow up - Continue meds
--- NOTE | 2018-03-26 07:26 | CP.PCM.PN ---
Subjective - Date & Time of Evaluation Date of Evaluation: 03/26/18 Time of Evaluation: 07:30 - Subjective Subjective: Patient seen and examined bedside. Feeling a little better.Hemodynamically stable , afebrile No acute issues overnight Tolerating liquid diet and denies any abdominal pain Margareth drain to RUQ with 360 ml bilious output last 24 hours Objective - Vital Signs/Intake and Output Vital Signs (last 24 hours): Temp Pulse Resp BP Pulse Ox 98.6 F 80 21 107/66 100 03/26/18 04:00 03/26/18 06:00 03/26/18 06:00 03/26/18 06:00 03/26/18 06:00 Intake and Output: 03/26/18 03/26/18 06:59 18:59 Intake Total 1000 Output Total 2400 Balance -1400 - Medications Medications: Current Medications Acetaminophen (Tylenol 325mg Tab) 650 mg PO Q8 PRN PRN Reason: Fever >100.4 F Albuterol/Ipratropium (Duoneb 3 Mg/0.5 Mg (3 Ml) Ud) 3 ml INH RQID PRN PRN Reason: Shortness of Breath Last Admin: 03/26/18 05:33 Dose: 3 ml Guaifenesin (Robitussin) 100 mg PO Q4 PRN PRN Reason: Cough Last Admin: 03/26/18 05:29 Dose: 100 mg Hydromorphone HCl (Dilaudid) 0.5 mg IVP Q4 PRN PRN Reason: Pain, moderate (4-7) Meropenem 1 gm/ Sodium (Chloride) 100 mls @ 100 mls/hr IVPB Q8 [facility] PRN Reason: Protocol Last Admin: 03/26/18 00:28 Dose: 100 mls/hr Vancomycin HCl 1 gm/ Sodium (Chloride) 250 mls @ 166.667 mls/hr IVPB DAILY [facility] PRN Reason: Protocol Last Admin: 03/25/18 09:56 Dose: 166.667 mls/hr Dextrose/Sodium Chloride (Dextrose 5%/0.45% Ns 1000 Ml) 1,000 mls @ 75 mls/hr IV .[id number] [facility] Stop: 03/27/18 05:04 Last Admin: 03/26/18 05:29 Dose: 75 mls/hr Ondansetron HCl (Zofran Inj) 4 mg IVP Q6 PRN PRN Reason: Nausea/Vomiting Pantoprazole Sodium (Protonix Inj) 40 mg IVP DAILY [facility] Last Admin: 03/25/18 08:09 Dose: 40 mg - Labs Labs: 03/26/18 04:12 03/26/18 04:12 PT 14.7 Seconds (9.8-13.1) H 03/23/18 10:40 INR 1.3 03/23/18 10:40 - Constitutional Appears: Non-toxic, No Acute Distress - Head Exam Head Exam: ATRAUMATIC, NORMOCEPHALIC - Eye Exam Eye Exam: EOMI, PERRL Pupil Exam: NORMAL ACCOMODATION - ENT Exam ENT Exam: Mucous Membranes Dry (dry crackled lips ) - Neck Exam Neck Exam: Full ROM, Normal Inspection - Respiratory Exam Respiratory Exam: Decreased Breath Sounds (bibasilar ), NORMAL BREATHING PATTERN. absent: Rhonchi, Wheezes, Respiratory Distress - Cardiovascular Exam Cardiovascular Exam: REGULAR RHYTHM, RRR, +S1, +S2. absent: JVD - GI/Abdominal Exam GI & Abdominal Exam: Soft, Normal Bowel Sounds. 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 At present clinically stable, WBC trended down to normal 10 LFT-s trending down AST/ALT 29/118 [place]an 1.2 , tolerating liquid diet 1.Septic Shock secondary to Acute Cholangitis and Acute Cholecystitis Clinically improving Off pressors, afebrile, WBC normalized to normal cholecystostomy tube in place ( placed 6 days ago ,with bilious output 360 ml last 24 hours ) Continue Merrem 1 gm and Vancomycin blood and bile cultures + EColi, E. Faecalis GI and Surgery evaluations appreciated. s/p ERCP y 03/24 that was not successful Tolerating liquid diet. Will advance to low fat soft diet Cleared by surgery for d/c with follow up cholecystectomy in 6 weeks 2.CAD,HLD holding Plavix no heparin for DVT 2/2 thrombocytopenia 3.Thrombocytopenia possibly secondary to meds vs sequestration vs sepsis no bleeding plt 85 K 4. Mild anemia Stable Hgb 10.3 5. Anasarca with scotal edema , lower ext and upper extremity edema most like;ly secondary to fluid overload Will diurese slowly. lasix 40 mg IV today 6. DVT prophylaxis SCD
--- NOTE | 2018-03-26 08:18 | CP.PCM.PN ---
Subjective - Date & Time of Evaluation Date of Evaluation: 03/26/18 Time of Evaluation: 08:15 - Subjective Subjective: General Surgery - Dr. Garcia/Dr. Mcintyre PT S&E. URIEL. Pt denies any abdominal pain, fevers, chills, nausea or vomiting. He tolerated clear liquid diet yesterday. Cholecystostomy tube in place with ~300cc bilious drainage/24hrs Objective - Vital Signs/Intake and Output Vital Signs (last 24 hours): Temp Pulse Resp BP Pulse Ox 98.6 F 80 18 118/50 L 100 03/26/18 04:00 03/26/18 07:47 03/26/18 07:47 03/26/18 07:47 03/26/18 07:47 Intake and Output: 03/26/18 03/26/18 06:59 18:59 Intake Total 1000 150 Output Total 2400 Balance -1400 150 - Medications Medications: Current Medications Acetaminophen (Tylenol 325mg Tab) 650 mg PO Q8 PRN PRN Reason: Fever >100.4 F Albuterol/Ipratropium (Duoneb 3 Mg/0.5 Mg (3 Ml) Ud) 3 ml INH RQID PRN PRN Reason: Shortness of Breath Last Admin: 03/26/18 05:33 Dose: 3 ml Guaifenesin (Robitussin) 100 mg PO Q4 PRN PRN Reason: Cough Last Admin: 03/26/18 05:29 Dose: 100 mg Hydromorphone HCl (Dilaudid) 0.5 mg IVP Q4 PRN PRN Reason: Pain, moderate (4-7) Meropenem 1 gm/ Sodium (Chloride) 100 mls @ 100 mls/hr IVPB Q8 [facility] PRN Reason: Protocol Last Admin: 03/26/18 00:28 Dose: 100 mls/hr Vancomycin HCl 1 gm/ Sodium (Chloride) 250 mls @ 166.667 mls/hr IVPB DAILY [facility] PRN Reason: Protocol Last Admin: 03/25/18 09:56 Dose: 166.667 mls/hr Dextrose/Sodium Chloride (Dextrose 5%/0.45% Ns 1000 Ml) 1,000 mls @ 75 mls/hr IV .[id number] [facility] Stop: 03/27/18 05:04 Last Admin: 08/19/18 05:29 Dose: 75 mls/hr Ondansetron HCl (Zofran Inj) 4 mg IVP Q6 PRN PRN Reason: Nausea/Vomiting Pantoprazole Sodium (Protonix Inj) 40 mg IVP DAILY [facility] Last Admin: 03/25/18 08:09 Dose: 40 mg - Labs Labs: 03/26/18 04:12 03/26/18 04:12 PT 14.7 Seconds (9.8-13.1) H 03/23/18 10:40 INR 1.3 03/23/18 10:40 - Constitutional Appears: No Acute Distress - Head Exam Head Exam: ATRAUMATIC, NORMAL INSPECTION, NORMOCEPHALIC - Eye Exam Eye Exam: Normal appearance - Respiratory Exam Respiratory Exam: NORMAL BREATHING PATTERN. absent: Respiratory Distress - Cardiovascular Exam Cardiovascular Exam: REGULAR RHYTHM - GI/Abdominal Exam GI & Abdominal Exam: Soft. absent: Distended, Firm, Guarding, Rigid, Tenderness , Rebound - Neurological Exam Neurological Exam: Alert, Oriented x3 - Psychiatric Exam Psychiatric exam: Normal Affect, Normal Mood - Skin Skin Exam: Dry, Intact Assessment and Plan - Assessment and Plan (Free Text) Assessment: 82 M w/ cholecystitis, s/p cholecystostomy tube - Advance diet as tolerated - Cont Abx - Pain control prn - Monitor drain output - Clear for discharge home from our standpoint once tolerating regular diet, pt. to f/u with Dr. Mcintyre in ~6weeks for interval cholecystectomy DW Dr Garcia/Dr. Francisco Javier Lara PGY4
--- NOTE | 2018-03-26 11:59 | RAD ---
Date of service: 03/26/2018 PROCEDURE: CHEST RADIOGRAPH, 1 VIEW HISTORY: s/p extubation COMPARISON: None available. FINDINGS: LUNGS: Bilateral perihilar and lower lobe opacities. Nonspecific. Possible pulmonary edema. PLEURA: Bilateral pleural effusion. No pneumothorax. CARDIOVASCULAR: Normal heart size. Congestive change. Right IJ central venous catheter. OSSEOUS STRUCTURES: Spinal fixation rods. VISUALIZED UPPER ABDOMEN: Normal. OTHER FINDINGS: None. IMPRESSION: Possible pulmonary edema. Bilateral perihilar and lower lobe infiltrates and bilateral pleural effusion. Congestive change. Follow-up advised.
--- NOTE | 2018-03-26 13:11 | CP.PCM.PN ---
Subjective - Date & Time of Evaluation Date of Evaluation: 03/26/18 Time of Evaluation: 09:00 - Subjective Subjective: has a patch of vesicles on right cheek Objective - Vital Signs/Intake and Output Vital Signs (last 24 hours): Temp Pulse Resp BP Pulse Ox 97.8 F 72 18 121/69 100 03/26/18 08:00 03/26/18 10:00 03/26/18 10:00 03/26/18 10:59 03/26/18 10:00 Intake and Output: 03/26/18 03/26/18 06:59 18:59 Intake Total 1000 950 Output Total 2400 Balance -1400 950 - Medications Medications: Current Medications Acetaminophen (Tylenol 325mg Tab) 650 mg PO Q8 PRN PRN Reason: Fever >100.4 F Acyclovir (Zovirax 5% Oint) 1 applic EXT Q3 [facility] Albuterol/Ipratropium (Duoneb 3 Mg/0.5 Mg (3 Ml) Ud) 3 ml INH RQID PRN PRN Reason: Shortness of Breath Last Admin: 03/26/18 05:33 Dose: 3 ml Guaifenesin (Robitussin) 100 mg PO Q4 PRN PRN Reason: Cough Last Admin: 03/26/18 05:29 Dose: 100 mg Hydromorphone HCl (Dilaudid) 0.5 mg IVP Q4 PRN PRN Reason: Pain, moderate (4-7) Meropenem 1 gm/ Sodium (Chloride) 100 mls @ 100 mls/hr IVPB Q8 [facility] PRN Reason: Protocol Last Admin: 03/26/18 09:04 Dose: 100 mls/hr Vancomycin HCl 1 gm/ Sodium (Chloride) 250 mls @ 166.667 mls/hr IVPB DAILY [facility] PRN Reason: Protocol Last Admin: 03/26/18 08:59 Dose: 166.667 mls/hr Dextrose/Sodium Chloride (Dextrose 5%/0.45% Ns 1000 Ml) 1,000 mls @ 75 mls/hr IV .[id number] [facility] Stop: 03/27/18 05:04 Last Admin: 03/26/18 05:29 Dose: 75 mls/hr Ondansetron HCl (Zofran Inj) 4 mg IVP Q6 PRN PRN Reason: Nausea/Vomiting Pantoprazole Sodium (Protonix Inj) 40 mg IVP DAILY [facility] Last Admin: 03/26/18 09:06 Dose: 40 mg - Labs Labs: 03/26/18 04:12 03/26/18 04:12 PT 14.7 Seconds (9.8-13.1) H 03/23/18 10:40 INR 1.3 03/23/18 10:40 - Constitutional Appears: Non-toxic, Chronically Ill - Head Exam Head Exam: NORMOCEPHALIC - Eye Exam Eye Exam: PERRL - ENT Exam ENT Exam: Mucous Membranes Dry - Neck Exam Neck Exam: absent: Lymphadenopathy - Respiratory Exam Respiratory Exam: Decreased Breath Sounds - Cardiovascular Exam Cardiovascular Exam: REGULAR RHYTHM - GI/Abdominal Exam GI & Abdominal Exam: Distended Assessment and Plan (1) Cholangitis Status: Acute (2) Cholecystitis Status: Acute (3) Septic shock Status: Acute (4) Sepsis Status: Acute - Assessment and Plan (Free Text) Assessment: cont iv antibiotics add acyclovir
[2018-03-26] MEDS: Acyclovir 5% OINT 15 APPLIC/15 GM EXT SCH ×4 (13:31→21:30)
--- NOTE | 2018-03-26 16:47 | CP.PCM.PN ---
Subjective - Date & Time of Evaluation Date of Evaluation: 03/26/18 Time of Evaluation: 16:40 - Subjective Subjective: stable, denies GI sx LFT's continue to improve PE: vss afebrile abd - soft with +BS cholecystostomy drain in place with clear yellow bile labs - noted imp/plam: cholecystitis with percutaneaous drain unsuccessful ERCP attempt but labs are all improving tolerating diet d/c IVF continue Abx Objective - Vital Signs/Intake and Output Vital Signs (last 24 hours): Temp Pulse Resp BP Pulse Ox 97.8 F 72 18 121/69 100 03/26/18 08:00 03/26/18 10:00 03/26/18 10:00 03/26/18 10:59 03/26/18 10:00 Intake and Output: 03/26/18 03/26/18 06:59 18:59 Intake Total 1000 950 Output Total 2400 Balance -1400 950 - Medications Medications: Current Medications Acetaminophen (Tylenol 325mg Tab) 650 mg PO Q8 PRN PRN Reason: Fever >100.4 F Acyclovir (Zovirax 5% Oint) 1 applic EXT Q3 [facility] Last Admin: 03/26/18 16:34 Dose: 1 applic Acyclovir (Zovirax) 800 mg PO TID [facility] PRN Reason: Protocol Last Admin: 03/26/18 16:35 Dose: 800 mg Albuterol/Ipratropium (Duoneb 3 Mg/0.5 Mg (3 Ml) Ud) 3 ml INH RQID PRN PRN Reason: Shortness of Breath Last Admin: 03/26/18 15:54 Dose: 3 ml Guaifenesin (Robitussin) 100 mg PO Q4 PRN PRN Reason: Cough Last Admin: 03/26/18 05:29 Dose: 100 mg Hydromorphone HCl (Dilaudid) 0.5 mg IVP Q4 PRN PRN Reason: Pain, moderate (4-7) Meropenem 1 gm/ Sodium (Chloride) 100 mls @ 100 mls/hr IVPB Q8 [facility] PRN Reason: Protocol Last Admin: 03/26/18 16:36 Dose: 100 mls/hr Vancomycin HCl 1 gm/ Sodium (Chloride) 250 mls @ 166.667 mls/hr IVPB DAILY [facility] PRN Reason: Protocol Last Admin: 03/26/18 08:59 Dose: 166.667 mls/hr Ondansetron HCl (Zofran Inj) 4 mg IVP Q6 PRN PRN Reason: Nausea/Vomiting Pantoprazole Sodium (Protonix Ec Tab) 40 mg PO DAILY [facility] - Labs Labs: 03/26/18 04:12 03/26/18 04:12 PT 14.7 Seconds (9.8-13.1) H 03/23/18 10:40 INR 1.3 03/23/18 10:40
[2018-03-26] MEDS: Albuterol-Ipratrop 3 mg / 0.5 (3 ml) UD INH SCH (19:24)
[2018-03-27] MEDS ORDERED: Promethazine/Cod 6.25mg-10mg/5ml Syr UD PO STA (00:32)
[2018-03-27] MEDS: Meropenem 1 GM in Sodium Chloride 0.9% 100 ML IVPB SCH ×3 (00:47→17:46)
[2018-03-27] MEDS: Acyclovir 5% OINT 15 APPLIC/15 GM EXT SCH ×8 (00:47→22:00)
[2018-03-27 05:45] LABS: ALB/GLOB RATIO 0.9 (1.0-2.1); ALBUMIN 2.4 g/dL (3.5-5.0); ALT/SGPT 96 U/L (21-72); AST/SGOT 29 U/L (17-59); BLOOD UREA NITROGEN 14 mg/dl (9-20); CALCIUM 8.2 mg/dL (8.4-10.2); GFR NON-AFRICAN AMERICAN > 60; HEMOGLOBIN 10.9 g/dL (12.0-18.0); MEAN CELL VOLUME 91.8 fl (80.0-94.0); MEAN CORPUSCULAR HEMOGLOBIN 30.9 pg (27.0-31.0); MEAN CORPUSCULAR HGB CONC 33.7 g/dL (33.0-37.0); RBC 3.53 Mil/uL (4.40-5.90); RED CELL DISTRIBUTION WIDTH 14.3 % (11.5-14.5); WHITE BLOOD COUNT 12.6 K/uL (4.8-10.8)
[2018-03-27] MEDS: Albuterol-Ipratrop 3 mg / 0.5 (3 ml) UD INH SCH ×4 (07:51→19:01)
--- NOTE | 2018-03-27 08:17 | CP.PCM.PN ---
Subjective - Date & Time of Evaluation Date of Evaluation: 03/27/18 Time of Evaluation: 08:14 - Subjective Subjective: General Surgery - Dr. Garcia/Dr. Mcintyre Pt S&E. Pt with persistent cough overnight. He denies any abdominal pain, nausea or vomiting. He is tolerating regular diet. No fevers/Chills. Cholecystostomy tube with 370cc bilious drainage/24hrs. Objective - Vital Signs/Intake and Output Vital Signs (last 24 hours): Temp Pulse Resp BP Pulse Ox 99.2 F 86 20 103/65 97 03/27/18 05:39 03/27/18 05:39 03/27/18 05:39 03/27/18 05:39 03/27/18 05:39 Intake and Output: 03/27/18 03/27/18 06:59 18:59 Intake Total 184 0 Output Total 2024 Balance -1841 0 - Medications Medications: Current Medications Acetaminophen (Tylenol 325mg Tab) 650 mg PO Q8 PRN PRN Reason: Fever >100.4 F Acyclovir (Zovirax 5% Oint) 1 applic EXT Q3 [facility] Last Admin: 03/27/18 06:45 Dose: 1 applic Acyclovir (Zovirax) 800 mg PO TID [facility] PRN Reason: Protocol Last Admin: 03/26/18 16:35 Dose: 800 mg Albuterol/Ipratropium (Duoneb 3 Mg/0.5 Mg (3 Ml) Ud) 3 ml INH RQID [facility] Last Admin: 03/27/18 07:51 Dose: 3 ml Guaifenesin (Robitussin) 200 mg PO Q4 PRN PRN Reason: Cough Hydromorphone HCl (Dilaudid) 0.5 mg IVP Q4 PRN PRN Reason: Pain, moderate (4-7) Meropenem 1 gm/ Sodium (Chloride) 100 mls @ 100 mls/hr IVPB Q8 [facility] PRN Reason: Protocol Last Admin: 03/27/18 00:47 Dose: 100 mls/hr Vancomycin HCl 1 gm/ Sodium (Chloride) 250 mls @ 166.667 mls/hr IVPB DAILY [facility] PRN Reason: Protocol Last Admin: 03/26/18 08:59 Dose: 166.667 mls/hr Ondansetron HCl (Zofran Inj) 4 mg IVP Q6 PRN PRN Reason: Nausea/Vomiting Pantoprazole Sodium (Protonix Ec Tab) 40 mg PO DAILY [facility] - Labs Labs: 03/27/18 04:20 03/27/18 04:20 PT 14.7 Seconds (9.8-13.1) H 03/23/18 10:40 INR 1.3 03/23/18 10:40 - Constitutional Appears: No Acute Distress - Head Exam Head Exam: ATRAUMATIC, NORMAL INSPECTION, NORMOCEPHALIC - Eye Exam Eye Exam: Normal appearance - Respiratory Exam Respiratory Exam: NORMAL BREATHING PATTERN. absent: Respiratory Distress - GI/Abdominal Exam GI & Abdominal Exam: Soft. absent: Distended, Firm, Guarding, Rigid, Tenderness , Rebound - Neurological Exam Neurological Exam: Alert, Oriented x3 - Psychiatric Exam Psychiatric exam: Normal Affect, Normal Mood - Skin Skin Exam: Dry, Intact Assessment and Plan - Assessment and Plan (Free Text) Assessment: 82 M w/ cholecystitis, s/p cholecystostomy tube - Tolerating regular diet - Cont Abx - Monitor drain output - Treatment for PNA as per Medicine - Pt. to f/u with Dr. Mcintyre in ~6weeks for interval cholecystectomy - Surgery will sign off, reconsult PRN, thank you for allowing us to participate in the care of this patient DW Dr Garcia/Dr. Francisco Javier Lara PGY4
--- NOTE | 2018-03-27 09:30 | US ---
Date of service: 03/27/2018 HISTORY: Cholecystitis , cholangitis r/o obstruction COMPARISON: None. TECHNIQUE: Sonographic evaluation of the right upper quadrant of the abdomen. FINDINGS: LIVER: Measures 17.2 cm in length. Normal echogenicity of the liver parenchyma. No mass. No intrahepatic bile duct dilatation. GALLBLADDER: Gallbladder is largely contracted with cholelithiasis not excluded. Patient is apparently status post cholecystostomy at outside institution with echogenic changes in the gallbladder lumen likely reflecting cholecystostomy catheter. Clinically correlate. No prominent gallbladder fossa fluid collection appreciable. COMMON BILE DUCT: Measures 6.5 mm. No stones. No dilatation. PANCREAS: Pancreas is completely obscured by overlying bowel gas. RIGHT KIDNEY: Measures 10.4 cm in length. No urolithiasis, cystic solid mass or perinephric fluid collection is identified. However, right renal pelvis appears somewhat prominent but without caliceal dilatation. AORTA: No aneurysmal dilatation. IVC: Unremarkable. OTHER FINDINGS: None . IMPRESSION: 1. Contracted gallbladder with echogenic changes in the lumen likely reflecting cholecystostomy catheter. Clinically correlate further. Cholelithiasis is not excluded. No prominent gallbladder fossa fluid collection appreciated. 2. Upper limits normal CBD caliber 6.5 mm. 3. Pancreas completely obscured by overlying bowel gas. 4. Moderately prominent right renal pelvis.
[2018-03-27] MEDS: Pantoprazole 40 mg EC Tab PO SCH (09:37)
[2018-03-27] MEDS ORDERED: Lidocaine 1% 5ml Abboject IV ONE (12:37)
--- NOTE | 2018-03-27 13:13 | CP.PCM.PN ---
Subjective - Date & Time of Evaluation Date of Evaluation: 03/27/18 Time of Evaluation: 08:00 - Subjective Subjective: events noted oral lesions + on PO Acyclovir afebrile Objective - Vital Signs/Intake and Output Vital Signs (last 24 hours): Temp Pulse Resp BP Pulse Ox 98.1 F 92 H 20 114/70 99 03/27/18 08:00 03/27/18 10:00 03/27/18 10:00 03/27/18 10:00 03/27/18 10:00 Intake and Output: 03/27/18 03/27/18 06:59 18:59 Intake Total 184 570 Output Total 202 1100 Balance -1841 -530 - Medications Medications: Current Medications Acetaminophen (Tylenol 325mg Tab) 650 mg PO Q8 PRN PRN Reason: Fever >100.4 F Acyclovir (Zovirax 5% Oint) 1 applic EXT Q3 [facility] Last Admin: 03/27/18 09:36 Dose: 1 applic Acyclovir (Zovirax) 800 mg PO TID [facility] PRN Reason: Protocol Last Admin: 03/27/18 09:37 Dose: 800 mg Albuterol/Ipratropium (Duoneb 3 Mg/0.5 Mg (3 Ml) Ud) 3 ml INH RQID [facility] Last Admin: 03/27/18 11:26 Dose: 3 ml Guaifenesin (Robitussin) 200 mg PO Q4 PRN PRN Reason: Cough Hydromorphone HCl (Dilaudid) 0.5 mg IVP Q4 PRN PRN Reason: Pain, moderate (4-7) Meropenem 1 gm/ Sodium (Chloride) 100 mls @ 100 mls/hr IVPB Q8 [facility] PRN Reason: Protocol Last Admin: 03/27/18 09:37 Dose: 100 mls/hr Vancomycin HCl 1 gm/ Sodium (Chloride) 250 mls @ 166.667 mls/hr IVPB DAILY [facility] PRN Reason: Protocol Last Admin: 03/27/18 09:38 Dose: 166.667 mls/hr Ondansetron HCl (Zofran Inj) 4 mg IVP Q6 PRN PRN Reason: Nausea/Vomiting Pantoprazole Sodium (Protonix Ec Tab) 40 mg PO DAILY [facility] Last Admin: 03/27/18 09:37 Dose: 40 mg - Labs Labs: 03/27/18 04:20 03/27/18 04:20 PT 14.7 Seconds (9.8-13.1) H 03/23/18 10:40 INR 1.3 03/23/18 10:40 - Constitutional Appears: Non-toxic, Chronically Ill - Head Exam Head Exam: NORMOCEPHALIC - Eye Exam Eye Exam: PERRL - ENT Exam ENT Exam: Mucous Membranes Dry - Neck Exam Neck Exam: absent: Lymphadenopathy - Respiratory Exam Respiratory Exam: Decreased Breath Sounds - Cardiovascular Exam Cardiovascular Exam: REGULAR RHYTHM - GI/Abdominal Exam GI & Abdominal Exam: Distended, Soft - Rectal Exam Rectal Exam: Deferred - Exam Exam: NORMAL INSPECTION Assessment and Plan (1) Cholangitis Status: Acute (2) Cholecystitis Status: Acute (3) Septic shock Status: Acute (4) Sepsis Status: Acute
--- NOTE | 2018-03-27 14:25 | CP.PCM.PN ---
Subjective - Date & Time of Evaluation Date of Evaluation: 03/27/18 Time of Evaluation: 09:00 - Subjective Subjective: Patient seen and examined bedside. Lying in bed in no acute distress. Complains of persistent dry cough , unable to expectorate. Denies any chest pain or SOB. Hempodynamically stable, afebrile. Tolerating diet , passing flatus , no BM Denies any abdominal pain or discomfort. WBC 12.6 Hgb 10 ASt/ALT 96/130 CXR showed bilateral pleural effusion and possible infiltrate Drain to RUQ with 375 ml bilious output last 24 hours I/O 2387/5855 Objective - Vital Signs/Intake and Output Vital Signs (last 24 hours): Temp Pulse Resp BP Pulse Ox 99.2 F 100 H 18 106/69 99 03/27/18 14:14 03/27/18 14:14 03/27/18 14:14 03/27/18 14:14 03/27/18 10:00 Intake and Output: 03/27/18 03/27/18 06:59 18:59 Intake Total 184 570 Output Total 2025 1100 Balance -1841 -530 - Medications Medications: Current Medications Acetaminophen (Tylenol 325mg Tab) 650 mg PO Q8 PRN PRN Reason: Fever >100.4 F Acyclovir (Zovirax 5% Oint) 1 applic EXT Q3 [facility] Last Admin: 03/27/18 09:36 Dose: 1 applic Acyclovir (Zovirax) 800 mg PO TID [facility] PRN Reason: Protocol Last Admin: 03/27/18 09:37 Dose: 800 mg Albuterol/Ipratropium (Duoneb 3 Mg/0.5 Mg (3 Ml) Ud) 3 ml INH RQID [facility] Last Admin: 03/27/18 11:26 Dose: 3 ml Guaifenesin (Robitussin) 200 mg PO Q4 PRN PRN Reason: Cough Hydromorphone HCl (Dilaudid) 0.5 mg IVP Q4 PRN PRN Reason: Pain, moderate (4-7) Meropenem 1 gm/ Sodium (Chloride) 100 mls @ 100 mls/hr IVPB Q8 [facility] PRN Reason: Protocol Last Admin: 03/27/18 09:37 Dose: 100 mls/hr Vancomycin HCl 1 gm/ Sodium (Chloride) 250 mls @ 166.667 mls/hr IVPB DAILY [facility] PRN Reason: Protocol Last Admin: 03/27/18 09:38 Dose: 166.667 mls/hr Ondansetron HCl (Zofran Inj) 4 mg IVP Q6 PRN PRN Reason: Nausea/Vomiting Pantoprazole Sodium (Protonix Ec Tab) 40 mg PO DAILY [facility] Last Admin: 03/27/18 09:37 Dose: 40 mg - Labs Labs: 03/27/18 04:20 03/27/18 04:20 PT 14.7 Seconds (9.8-13.1) H 03/23/18 10:40 INR 1.3 03/23/18 10:40 - Constitutional Appears: Non-toxic, No Acute Distress - Head Exam Head Exam: ATRAUMATIC, NORMOCEPHALIC - Eye Exam Eye Exam: EOMI, Normal appearance, PERRL Pupil Exam: NORMAL ACCOMODATION - ENT Exam Additional comments: dry cracked lips with right perioral vesicles - Neck Exam Neck Exam: Full ROM, Normal Inspection - Respiratory Exam Respiratory Exam: Decreased Breath Sounds (bibasilar ), NORMAL BREATHING PATTERN. absent: Accessory Muscle Use, Rhonchi, Wheezes, Respiratory Distress - Cardiovascular Exam Cardiovascular Exam: REGULAR RHYTHM, RRR, +S1, +S2. absent: JVD - GI/Abdominal Exam GI & Abdominal Exam: Soft, Normal Bowel Sounds. absent: Distended, Guarding, Tenderness, Rebound Additional comments: right upper quadrant drain - Rectal Exam Rectal Exam: Deferred - Exam Exam: Scrotal Swelling (edema ) - Extremities Exam Extremities Exam: Normal Capillary Refill, Normal Inspection, Pedal Edema (1 +) - Neurological Exam Neurological Exam: Alert, Awake, CN II-XII Intact, Oriented x3 Neuro motor strength exam: Left Upper Extremity: 5, Right Upper Extremity: 5, Left Lower Extremity: 0, Right Lower Extremity: 0 - Psychiatric Exam Psychiatric exam: Normal Affect - Skin Skin Exam: Dry, Pallor, Warm Additional comments: dry cracked lips with right perioral vesicles Assessment and Plan - Assessment and Plan (Free Text) Assessment: 82 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 At present clinically stable, WBC trending down 12 K LFT-s trending down AST/ALT 96/130 Gulshan 1.3 , tolerating diet, clinically improving With persistent dry cough 1.Septic Shock secondary to Acute Cholangitis and Acute Cholecystitis Clinically improving Off pressors, afebrile, WBC 12.[address] in [address] ( placed 7 days ago ,with bilious output 375 ml last 24 hours ) Continue Merrem 1 gm and Vancomycin blood and bile cultures + EColi, E. Faecalis GI and Surgery evaluations appreciated. s/p ERCP 03/24 that was not successful Tolerating ldiet. Cleared by surgery for d/c with follow up cholecystectomy in 6 weeks 2.CAD,HLD holding Plavix no heparin for DVT 2/2 thrombocytopenia 3.Thrombocytopenia possibly secondary to meds vs sequestration vs sepsis no bleeding plt 109 4. Mild anemia Stable Hgb 10.9 5. Anasarca with scotal edema , lower ext and upper extremity edema CXR showed bilateral pleural effusion Given 40 mg lasix yesterday and diuresed 4 L . Will give 40 mg lasix again today and monitor output Will repeat CXR in AM Downgrade to med/surg 6. Bilateral pleural effusion CXR showed bilateral pleural effusion . Unclear if there is underlying atelectasis or infiltrate Continue diuresis d/c IVF Continue Meropenem and Vancomycin Incentive spirometry Started Quita Yun RTC 7. Perioral Herpetic lesions started acyclovir topical and oral 8. DVT prophylaxis SCD
--- NOTE | 2018-03-27 15:28 | RAD ---
Date of service: 03/27/2018 PROCEDURE: CHEST RADIOGRAPH, 1 VIEW HISTORY: cough. ? pneumonia COMPARISON: Comparison chest dated 03/26/2015. FINDINGS: No placement right-sided PICC line with tip in the SVC. No change right-sided IJ central line with tip also in the SVC. LUNGS: Mild pulmonary vascular congestive changes with bilateral lower lobe alveolar-type infiltrates and bilateral effusions. PLEURA: As above. No evidence of pneumothorax CARDIOVASCULAR: Heart size is within range of normal. Aorta slightly ectatic and uncoiled. OSSEOUS STRUCTURES: Re- demonstrated are bilateral long segment Yadav rods over the lower thoracic and presumed upper lumbar region unchanged VISUALIZED UPPER ABDOMEN: Normal. OTHER FINDINGS: None. IMPRESSION: No placement right-sided PICC line with tip in the SVC. No change right-sided IJ central line with tip also in the SVC. Mild pulmonary vascular congestive changes with bilateral lower lobe alveolar-type infiltrates and bilateral effusions.
[2018-03-27] MEDS: guaiFENesin 200 mg/10 ml Syrup UD PO PRN (20:57)
[2018-03-27] MEDS: Mag&Al/Simet/Diphen/Lido 237 ML KIT PO SCH (21:12)
--- NOTE | 2018-03-28 00:54 | PN ---
Copied To: Buster Bautista MD Attending MD: Buster Bautista MD DATE: 03/27/2018 LOCATION: The patient in ICU, bed 425. TIME SPENT: 35 minutes. SUBJECTIVE: The patient is seen and evaluated at the bedside. Past medical, surgical, social, and family history reviewed as noted in H and P. Case was discussed in multidisciplinary ICU rounds this morning. Overnight events noted. An 82-year-old male, status post spinal cord injury, paraplegic, history of CAD, status post stent 7 years ago, hypertension, hyperlipidemia, admitted at [place] secondary to acute cholangitis, cholecystitis with subsequent septic shock, transferred to [facility] on 03/22/2018 for possible ERCP. The patient was seen by ID consult and started on meropenem due to gram-negative bacteremia. The patient overnight is less febrile, off pressors, maintain blood pressure, heart rate telemetry sinus rhythm. This morning alert, awake. Follows commands appropriate. Complaining of abdominal discomfort but no diarrhea. OBJECTIVE: VITAL SIGNS: Temperature 98.1, heart rate 92, blood pressure 114/70, mean arterial pressure 84, off pressors, respiratory rate 20 thoracoabdominal, saturation 99% on room air. Intake 2399, output 7475, negative balance 5076. EXAMINATION OF HEAD, EYES, EARS, NOSE, AND THROAT: Short neck. Reduced oropharyngeal air space. CHEST: Bilateral breath sounds. Clear to auscultation anteriorly and laterally. HEART: Rhythm regular. S1, S2 normal. No S3, S4, or gallop. No audible murmur. ABDOMEN: Bowel sounds present. Soft, mildly distended. Nontender. T-tube draining [place] yellow bile. EXTREMITIES: Paraplegic. GENITOURINARY: Scrotal edema 2+. SKIN: Without breakdown. NEUROLOGIC: paraplegic.,oriented to name, place, time. MEDICATIONS: Current medications include vancomycin 1 g IV daily, Protonix 40 daily, Zofran 4 mg IV every 4 hours p.r.n., meropenem 1 g IV every 8 hours, Dilaudid 0.5 mg IV every 4 hours p.r.n., Robitussin 200 mg p.o. every 4 hours p.r.n., albuterol/Atrovent inhalation every 6 hours, Zovirax 800 mg three times daily, Zovirax 5% ointment one application every 3 hours, Tylenol 650 every 8 hours p.r.n. LABORATORY DATA: WBC 12.6, hemoglobin 10.9, hematocrit 32.4, platelet count of 109. PT of 14.7, INR 1.3. SMA-7, sodium 138, potassium 4.1, chloride 106, CO2 of 26, blood urea nitrogen 14, creatinine 0.7, random glucose 123, calcium 8.2, total bilirubin 1.3, AST 29, ALT 96, alkaline phosphatase 130, total protein 5.1, albumin 2.4. Vancomycin trough level is 7.5. Microbiology, nasal smear MRSA negative. Abdominal x-ray done this morning, contracted gallbladder with echogenic changes in the lumen, likely reflecting cholecystostomyl, common bile duct caliber 6.5 mm. Chest x- ray pending for PICC line insertion. IMPRESSION: 1. Neuro: Alert, awake, and oriented to name, place, and time. Status post septic metabolic encephalopathy. Use analgesics as needed for pain. 2. Pulmonary: Bilateral pleural effusion, more on the right than left with residual passive atelectasis. 3. Cardiac: Status post hypertension, off pressors, maintain mean arterial pressure above 65. 4. Infectious Disease: Cholecystitis, cholangitis, status post T-tube with drainage of [place] bile. Leukocytosis trending down. Currently, on vancomycin and meropenem. Follow vancomycin level, keep on trough below 15. 5. Renal. No electrolyte abnormalities, BUN 14, creatinine 0.7. 6. Gastrointestinal: Status post acute cholecystitis, cholangitis. Liver enzymes trending down. Failed endoscopic retrograde cholangiopancreatography. Continue T-tube, and for possible elective cholecystectomy, appreciate general surgery followup and recommendation. 7. Endocrinology. No acute issues noted. 8. Psychiatric: Normal affect. 9. Skin: With dependent edema also in the scrotal area. Consider Lasix 40 mg x1. Continue bronchodilator, related to bronchospasm. Buster Bautista MD [facility]
[2018-03-28] MEDS: Acyclovir 5% OINT 15 APPLIC/15 GM EXT SCH ×8 (01:00→21:07)
[2018-03-28] MEDS: Meropenem 1 GM in Sodium Chloride 0.9% 100 ML IVPB SCH ×3 (01:00→16:45)
[2018-03-28] MEDS: Mag&Al/Simet/Diphen/Lido 237 ML KIT PO SCH ×4 (04:22→21:04)
[2018-03-28 05:34] LABS: HEMOGLOBIN 10.9 g/dL (12.0-18.0); MEAN CELL VOLUME 92.4 fl (80.0-94.0); MEAN CORPUSCULAR HGB CONC 33.5 g/dL (33.0-37.0); RBC 3.53 Mil/uL (4.40-5.90); RED CELL DISTRIBUTION WIDTH 14.4 % (11.5-14.5); WHITE BLOOD COUNT 13.3 K/uL (4.8-10.8)
[2018-03-28 06:02] LABS: BLOOD UREA NITROGEN 21 mg/dl (9-20); CALCIUM 8.3 mg/dL (8.4-10.2); GFR NON-AFRICAN AMERICAN > 60
[2018-03-28] MEDS: Albuterol-Ipratrop 3 mg / 0.5 (3 ml) UD INH SCH ×4 (07:23→19:04)
--- NOTE | 2018-03-28 07:40 | CP.CCUPN ---
<Tj Perez - Last Filed: 03/28/18 13:11> CCU Subjective - Physician Review Subjective (Free Text): Patient seen and examined this morning at bed side during rounding. No acute overnight events. Reports feeling better, no abdominal pain at this time. Still with mild dry cough though reports is better than yesterday. Denies any Nausea/ Vomiting, no chest pain or sob. Afebrile. HR currently stable in upper 70s. Two episodes on hypotension noted in am likely due to depletion. Margareth tube in place with minimal bilious drainage. I/O: 1324/5125 CCU Objective - Vital Signs / Intake & Output Vital Signs (Last 4 hours): Vital Signs Temp Pulse Resp BP Pulse Ox 03/28/18 06:00 79 14 90/48 L 97 03/28/18 04:00 98.8 F 81 24 113/68 97 Intake and Output (Last 8hrs): Intake & Output 03/27/18 03/28/18 03/28/18 22:59 06:59 14:59 Intake Total 334 120 Output Total 850 1275 Balance -516 -1155 Weight 76.113 kg Intake: IV 109 20 Intake, Piggyback 100 Oral 225 Output: Drainage 100 75 Right Upper Abdomen 100 75 Urine 750 1200 Urethral (Mireles) 750 1200 Other: # Bowel Movements 0 - Physical Exam Head: Positive for: Atraumatic, Normocephalic Pupils: Positive for: PERRL Extroacular Muscles: Positive for: EOMI Conjunctiva: Positive for: Normal. Negative for: Injected, Icteric Ears: Positive for: Normal Mouth: Positive for: Moist Mucous Membranes Pharnyx: Positive for: Normal Nose (External): Positive for: Atraumatic Nose (Internal): Positive for: Normal Inspection Neck: Positive for: Normal Range of Motion, Trachea Midline Respiratory/Chest: Positive for: Decreased Breath Sounds, Rales. Negative for: Respiratory Distress, Accessory Muscle Use, Retracting Cardiovascular: Positive for: Regular Rate and Rhythm, Normal S1, S2. Negative for: Murmurs, Irregular Rhythm, Tachycardic, Bradycardic Abdomen: Positive for: Distention (mild), Normal Bowel Sounds. Negative for: Peritoneal Signs, Rebound, Guarding Genitourinary Male: Positive for: Testicle Swelling Back: Negative for: CVA Tenderness Upper Extremity: Positive for: Normal Inspection, Capillary Refill < 2s. Negative for: Cyanosis, Edema Lower Extremity: Positive for: Edema (mild), Capillary Refill < 2 s. Negative for: CALF TENDERNESS Neurological: Positive for: Speech Normal, Motor Func Grossly Intact Psychiatric: Positive for: Alert, Oriented x 3 - Medications Active Medications: Active Medications Generic Name Dose Route Start Last Admin Trade Name Freq PRN Reason Stop Dose Admin Acetaminophen 650 mg 03/22/18 16:24 Tylenol 325mg Tab PO Q8 PRN Fever >100.4 F Acyclovir 1 applic 03/26/18 13:00 03/28/18 06:38 Zovirax 5% Oint EXT 1 applic Q3 [facility] Administration Acyclovir 800 mg 03/26/18 17:00 03/27/18 17:47 Zovirax PO 800 mg TID [facility] Administration Protocol Albuterol/Ipratropium 3 ml 03/26/18 20:00 03/28/18 07:23 Duoneb 3 Mg/0.5 Mg (3 Ml) Ud INH 3 ml RQID [facility] Administration Guaifenesin 200 mg 03/27/18 00:33 03/27/18 20:57 Robitussin PO 200 mg Q4 PRN Administration Cough Hydromorphone HCl 0.5 mg 03/22/18 16:15 Dilaudid IVP Q4 PRN Pain, moderate (4-7) Meropenem 1 gm/ Sodium 100 mls @ 100 mls/hr 03/23/18 01:00 03/28/18 01:00 Chloride IVPB 100 mls/hr Q8 [facility] Administration Protocol Vancomycin HCl 1 gm/ Sodium 250 mls @ 166.667 mls/hr 03/23/18 10:15 03/27/18 09:38 Chloride IVPB 166.667 mls/hr DAILY [facility] Administration Protocol Ondansetron HCl 4 mg 03/22/18 16:25 Zofran Inj IVP Q6 PRN Nausea/Vomiting Pantoprazole Sodium 40 mg 03/27/18 09:00 03/27/18 09:37 Protonix Ec Tab PO 40 mg DAILY [facility] Administration Saliva Substitute 5 ml 03/27/18 22:00 03/28/18 04:22 First Magic Mouthwash PO 5 ml Q6 [facility] Administration - Patient Studies Lab Studies: Microbiology Studies 03/27/18 04:20 Blood Culture - Preliminary Blood-Thru Central Line NO GROWTH AFTER 24 HOURS Lab Studies 03/28/18 03/28/18 Range/Units 04:20 04:20 WBC 13.3 H (4.8-10.8) K/uL RBC 3.53 L (4.40-5.90) Mil/uL Hgb 10.9 L (12.0-18.0) g/dL Hct 32.7 L (35.0-51.0) % MCV 92.4 (80.0-94.0) fl MCH 31.0 (27.0-31.0) pg MCHC 33.5 (33.0-37.0) g/dL RDW 14.4 (11.5-14.5) % Plt Count 118 L (130-400) K/uL Sodium 136 (132-148) mmol/l Potassium 4.3 (3.6-5.0) MMOL/L Chloride 104 (98-107) mmol/L Carbon Dioxide 26 (22-30) mmol/L Anion Gap 10 (10-20) BUN 21 H (9-20) mg/dl Creatinine 0.6 L (0.8-1.5) mg/dl Est GFR ( Amer) > 60 Est GFR (Non-Af Amer) > 60 Random Glucose 121 H (75-110) mg/dL Calcium 8.3 L (8.4-10.2) mg/dL Laboratory Results - last 24 hr 03/28/18 03/28/18 04:20 04:20 WBC 13.3 H RBC 3.53 L Hgb 10.9 L Hct 32.7 L MCV 92.4 MCH 31.0 MCHC 33.5 RDW 14.4 Plt Count 118 L Sodium 136 Potassium 4.3 Chloride 104 Carbon Dioxide 26 Anion Gap 10 BUN 21 H Creatinine 0.6 L Est GFR ( Amer) > 60 Est GFR (Non-Af Amer) > 60 Random Glucose 121 H Calcium 8.3 L Review of Systems - Review of Systems All systems: reviewed and no additional remarkable complaints except (HPI) Critical Care Progress Note - Nutrition Nutrition: Nutrition Category Date Time Status Altered GI/Hepatic Diet [DIET] Diets 03/27/18 Breakfast Active Assessment/Plan - Assessment and Plan (Free Text) Assessment: 82 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 Cholecystostomy tube has been placed draining bilious fluid .Initially he was on Levophed drip and now is off, hemodynamically stable.He is on IV Meropenem and Vancomycin. Unsuccessful ERCP . Plan: 1) Septic Shock secondary to Acute Cholangitis and Acute Cholecystitis Clinically improving afebrile, WBC 13.3 trending up from 11.0 two days ago. cholecystostomy tube in place (day 8 ,with bilious output 175 ml last 24 hours) Continue Merrem 1 gm and Vancomycin blood and bile cultures + EColi, E. [facility] GI and Surgery evaluations appreciated. s/p ERCP 03/24, unsuccessful Tolerating diet. ABD US 03/27/18: CBD caliber 6.5mm, no dilation, gallbladder contracted with cholecystostomy tube in place. Cleared by surgery for d/c with follow up cholecystectomy in 6 weeks. 2) CAD, HLD holding Plavix no heparin for DVT 2/2 thrombocytopenia Cardiology consult placed, awaiting recommds. 3) Thrombocytopenia, improving possibly secondary to meds vs sequestration vs sepsis trending up from 109 yesterday to 118 today no bleeding 4) Mild anemia Stable Hgb 10.9 5) Anasarca, improving moderate scrotal edema, improving lower ext and upper extremity edema CXR 03/27/18: showed bilateral pleural effusion s/p 80 mg lasix yesterday and diuresed 4 L. Will repeat CXR in AM 6) Bilateral pleural effusion CXR 03/27/18 showed bilateral pleural effusion . Unclear if there is underlying atelectasis or infiltrate Continue diuresis d/c IVF Continue Meropenem and Vancomycin Incentive spirometry Started [place] [facility] RTC 7) Perioral Herpetic lesions Continue acyclovir topical and oral 8) DVT prophylaxis SCD <Buster Bautista V - Last Filed: 03/28/18 13:21> CCU Subjective - Physician Review Events Since Last Encounter (Free Text): 03/28/18 13:20 Patient is seen and examined at bedside. case discussed in am rounds in ICU. Agree with plan of care as detailed in resident's note CCU Objective - Vital Signs / Intake & Output Vital Signs (Last 4 hours): Vital Signs Temp Pulse Resp BP Pulse Ox 03/28/18 12:00 98.3 F 87 28 H 92/60 L 100 03/28/18 10:00 86 20 91/61 L 99 Intake and Output (Last 8hrs): Intake & Output 03/27/18 03/28/18 03/28/18 22:59 06:59 14:59 Intake Total 334 120 500 Output Total 850 1275 Balance -516 -1155 500 Weight 167 lb 12.8 oz Intake: IV 109 20 Intake, Piggyback 100 300 Oral 225 200 Output: Drainage 100 75 Right Upper Abdomen 100 75 Urine 750 1200 Urethral (Mireles) 750 1200 Other: # Bowel Movements 0 - Medications Active Medications: Active Medications Generic Name Dose Route Start Last Admin Trade Name Freq PRN Reason Stop Dose Admin Acetaminophen 650 mg 03/22/18 16:24 Tylenol 325mg Tab PO Q8 PRN Fever >100.4 F Acyclovir 1 applic 03/26/18 13:00 03/28/18 09:27 Zovirax 5% Oint EXT 1 applic Q3 [facility] Administration Acyclovir 800 mg 03/26/18 17:00 03/28/18 09:23 Zovirax PO 800 mg TID [facility] Administration Protocol Albuterol/Ipratropium 3 ml 03/26/18 20:00 03/28/18 11:21 Duoneb 3 Mg/0.5 Mg (3 Ml) Ud INH 3 ml RQID [facility] Administration Guaifenesin 200 mg 03/27/18 00:33 03/27/18 20:57 Robitussin PO 200 mg Q4 PRN Administration Cough Hydromorphone HCl 0.5 mg 03/22/18 16:15 Dilaudid IVP Q4 PRN Pain, moderate (4-7) Meropenem 1 gm/ Sodium 100 mls @ 100 mls/hr 03/23/18 01:00 03/28/18 09:00 Chloride IVPB 100 mls/hr Q8 [facility] Administration Protocol Vancomycin HCl 1 gm/ Sodium 250 mls @ 166.667 mls/hr 03/23/18 10:15 03/28/18 09:31 Chloride IVPB 166.667 mls/hr DAILY [facility] Administration Protocol Ondansetron HCl 4 mg 03/22/18 16:25 Zofran Inj IVP Q6 PRN Nausea/Vomiting Pantoprazole Sodium 40 mg 03/27/18 09:00 08/21/18 09:23 Protonix Ec Tab PO 40 mg DAILY [facility] Administration Saliva Substitute 5 ml 03/27/18 22:00 03/28/18 09:24 First Magic Mouthwash PO 5 ml Q6 [facility] Administration - Patient Studies Lab Studies: Microbiology Studies 03/27/18 04:20 Blood Culture - Preliminary Blood-Thru Central Line NO GROWTH AFTER 24 HOURS Lab Studies 03/28/18 03/28/18 Range/Units 04:20 04:20 WBC 13.3 H (4.8-10.8) K/uL RBC 3.53 L (4.40-5.90) Mil/uL Hgb 10.9 L (12.0-18.0) g/dL Hct 32.7 L (35.0-51.0) % MCV 92.4 (80.0-94.0) fl MCH 31.0 (27.0-31.0) pg MCHC 33.5 (33.0-37.0) g/dL RDW 14.4 (11.5-14.5) % Plt Count 118 L (130-400) K/uL Sodium 136 (132-148) mmol/l Potassium 4.3 (3.6-5.0) MMOL/L Chloride 104 (98-107) mmol/L Carbon Dioxide 26 (22-30) mmol/L Anion Gap 10 (10-20) BUN 21 H (9-20) mg/dl Creatinine 0.6 L (0.8-1.5) mg/dl Est GFR ( Amer) > 60 Est GFR (Non-Af Amer) > 60 Random Glucose 121 H (75-110) mg/dL Calcium 8.3 L (8.4-10.2) mg/dL Laboratory Results - last 24 hr 03/28/18 03/28/18 04:20 04:20 WBC 13.3 H RBC 3.53 L Hgb 10.9 L Hct 32.7 L MCV 92.4 MCH 31.0 MCHC 33.5 RDW 14.4 Plt Count 118 L Sodium 136 Potassium 4.3 Chloride 104 Carbon Dioxide 26 Anion Gap 10 BUN 21 H Creatinine 0.6 L Est GFR ( Amer) > 60 Est GFR (Non-Af Amer) > 60 Random Glucose 121 H Calcium 8.3 L Critical Care Progress Note - Nutrition Nutrition: Nutrition Category Date Time Status Dysphagia/Modified Consistency Diet [DIET] Diets 03/28/18 Lunch Active
[2018-03-28] MEDS: Pantoprazole 40 mg EC Tab PO SCH (09:23)
--- NOTE | 2018-03-28 11:09 | CP.PCM.PN ---
Subjective - Date & Time of Evaluation Date of Evaluation: 03/28/18 Time of Evaluation: 09:00 - Subjective Subjective: PAIN IN MOUTH LESS SEVERE AWAKE ALERT AFEBRILE NO SOB OR CHEST PAIN CHOLY TUBE IN PLACE Objective - Vital Signs/Intake and Output Vital Signs (last 24 hours): Temp Pulse Resp BP Pulse Ox 98.1 F 86 20 91/61 L 99 03/28/18 08:00 03/28/18 10:00 03/28/18 10:00 03/28/18 10:00 03/28/18 10:00 Intake and Output: 03/28/18 03/28/18 06:59 18:59 Intake Total 154 500 Output Total 1275 Balance -1121 500 - Medications Medications: Current Medications Acetaminophen (Tylenol 325mg Tab) 650 mg PO Q8 PRN PRN Reason: Fever >100.4 F Acyclovir (Zovirax 5% Oint) 1 applic EXT Q3 [facility] Last Admin: 03/28/18 09:27 Dose: 1 applic Acyclovir (Zovirax) 800 mg PO TID [facility] PRN Reason: Protocol Last Admin: 03/28/18 09:23 Dose: 800 mg Albuterol/Ipratropium (Duoneb 3 Mg/0.5 Mg (3 Ml) Ud) 3 ml INH RQID [facility] Last Admin: 03/28/18 07:23 Dose: 3 ml Guaifenesin (Robitussin) 200 mg PO Q4 PRN PRN Reason: Cough Last Admin: 03/27/18 20:57 Dose: 200 mg Hydromorphone HCl (Dilaudid) 0.5 mg IVP Q4 PRN PRN Reason: Pain, moderate (4-7) Meropenem 1 gm/ Sodium (Chloride) 100 mls @ 100 mls/hr IVPB Q8 [facility] PRN Reason: Protocol Last Admin: 03/28/18 09:00 Dose: 100 mls/hr Vancomycin HCl 1 gm/ Sodium (Chloride) 250 mls @ 166.667 mls/hr IVPB DAILY [facility] PRN Reason: Protocol Last Admin: 03/28/18 09:31 Dose: 166.667 mls/hr Ondansetron HCl (Zofran Inj) 4 mg IVP Q6 PRN PRN Reason: Nausea/Vomiting Pantoprazole Sodium (Protonix Ec Tab) 40 mg PO DAILY [facility] Last Admin: 03/28/18 09:23 Dose: 40 mg Saliva Substitute (First Magic Mouthwash) 5 ml PO Q6 [facility] Last Admin: 03/28/18 09:24 Dose: 5 ml - Labs Labs: 03/28/18 04:20 03/28/18 04:20 PT 14.7 Seconds (9.8-13.1) H 03/23/18 10:40 INR 1.3 03/23/18 10:40 - Constitutional Appears: Non-toxic, Chronically Ill - Head Exam Head Exam: NORMOCEPHALIC - Eye Exam Eye Exam: PERRL. absent: Scleral icterus - ENT Exam ENT Exam: Mucous Membranes Dry - Neck Exam Neck Exam: absent: Lymphadenopathy - Respiratory Exam Respiratory Exam: Decreased Breath Sounds - Cardiovascular Exam Cardiovascular Exam: REGULAR RHYTHM - GI/Abdominal Exam GI & Abdominal Exam: Distended - Rectal Exam Rectal Exam: Deferred - Exam Exam: NORMAL INSPECTION - Extremities Exam Extremities Exam: absent: Pedal Edema - Back Exam Back Exam: absent: CVA tenderness (L), CVA tenderness (R) - Neurological Exam Neurological Exam: Alert, Awake, Oriented x3 - Psychiatric Exam Psychiatric exam: Normal Mood - Skin Skin Exam: Dry Assessment and Plan (1) Cholangitis Status: Acute (2) Cholecystitis Status: Acute (3) Septic shock Status: Acute (4) Sepsis Status: Acute
--- NOTE | 2018-03-28 17:01 | CP.PCM.CON ---
History of Present Illness - History of Present Illness History of Present Illness: ASKED TO SEE PT BY DR MARTIN. 82 Y/O MALE ADMITTED WITH SEPSIS SYNDROME. PT HAS A HX OF CAD AND PCI PERFORMED AT [facility] 2 YEARS AGO. PTS CARDIAC MEDS REVIEWED WITH FAMILY. PT CURRENTLY DENIES CP, SOB, LH, DIZZINESS, PALP. HR AND BP STABLE. LFTS DECREASING Review of Systems - Constitutional Constitutional: As Per HPI. absent: Anorexia, Chills, Daytime Sleepiness, Excessive Sweating, Fatigue, Fever, Frequent Falls, Headache, Increased Appetite , Lethargy, Malaise, Night Sweats, Snoring, Sleep Apnea, Weight Gain, Weight Loss, Weakness, Other - EENT Eyes: As Per HPI. absent: Blind Spots, Blurred Vision, Change in Vision, Decreased Night Vision, Diplopia, Discharge, Dry Eye, Exophthalmos, Floaters, Irritation, Itchy Eyes, Loss of Peripheral Vision, Pain, Photophobia, Requires Corrective Lenses, Sees Flashes, Spots in Vision, Tunnel Vision, Other Visual Disturbances, Loss of Vision, Other Ears: As Per HPI. absent: Decreased Hearing, Ear Discharge, Ear Pain, Tinnitus , Abnormal Hearing, Disequilibrium, Dizziness, Other Nose/Mouth/Throat: As Per HPI. absent: Epistaxis, Nasal Congestion, Nasal Discharge, Nasal Obstruction, Nasal Trauma, Nose Pain, Post Nasal Drip, Sinus Pain, Sinus Pressure, Bleeding Gums, Change in Voice, Dental Pain, Dry Mouth, Dysphagia, Halitosis, Hoarsness, Lip Swelling, Mouth Lesions, Mouth Pain, Odynophagia, Sore Throat, Throat Swelling, Tongue Swelling, Facial Pain, Neck Pain, Neck Mass, Other - Cardiovascular Cardiovascular: As Per HPI. absent: Acrocyanosis, Chest Pain, Chest Pain at Rest, Chest Pain with Activity, Claudication, Diaphoresis, Dyspnea, Dyspnea on Exertion, Edema, Irregular Heart Rhythm, Pain Radiating to Arm/Neck/Jaw, Leg Edema, Leg Ulcers, Lightheadedness, Orthopnea, Palpitations, Paroxysmal Nocturnal Dyspnea, Pedal Edema, Radiating Pain, Rapid Heart Rate, Slow Heart Rate, Syncope, Other - Respiratory Respiratory: As Per HPI. absent: Cough, Dyspnea, Hemoptysis, Dyspnea on Exertion, Wheezing, Snoring, Stridor, Pain on Inspiration, Chest Congestion, Excessive Mucous Production, Change in Mucous Color, Pain with Coughing, Other - Gastrointestinal Gastrointestinal: As Per HPI. absent: Abdominal Pain, Belching, Bloating, Change in Bowel Habits, Change in Stool Character, Coffee Ground Emesis, Constipation, Cramping, Diarrhea, Dyspepsia, Dysphagia, Early Satiety, Excessive Flatus, Fecal Incontinence, Heartburn, Hematemesis, Hematochezia, Loose Stools, Melena, Nausea, Odynophagia, Temesmus, Vomiting, Other - Genitourinary Genitourinary: As Per HPI. absent: Change in Urinary Stream, Difficulty Urinating, Dysuria, Flank Pain, Hematuria, Pyuria, Nocturia, Urinary Incontinence, Urinary Frequency, Urinary Hesitance, Urinary Urgency, Voiding Freq/Small Amts, Freq UTI, Hx Renal/Bladder Calculi, Hx /Renal Surgery, Bladder Distension, Other - Musculoskeletal Musculoskeletal: As Per HPI, Limited Range of Motion, Other. absent: Abnormal Gait, Arthralgias, Atrophy, Back Pain, Deformity, Joint Swelling, Loss of Height , Muscle Cramps, Muscle Weakness, Myalgias, Neck Pain, Numbness, Radiating Pain into Limb, Stiffness, Tingling - Integumentary Integumentary: As Per HPI. absent: Acne, Alopecia, Bleeding Lesions, Change in Hair, Change in Nails, Change in Pigmentation, Changing Lesions, Dry Skin, Erythema, Furuncle, Hirsutism, Lesions, New Lesions, Non-Healing Lesions, Photosensitivity, Pruritus, Rash, Skin Pain, Skin Ulcer, Sores, Striae, Swelling , Unusual Bruising, Wounds, Jaundice, Other - Neurological Neurological: As Per HPI, Focal Weakness, Other. absent: Abnormal Gait, Abnormal Hearing, Abnormal Movements, Abnormal Speech, Behavioral Changes, Burning Sensations, Confusion, Convulsions, Disequilibrium, Dizziness, Numbness , Frequent Falls, Headaches, Lack of Coordination, Loss of Vision, Memory Loss, Paresthesias, Radicular Pain, Restless Legs, Sensory Deficit, Syncope, Tingling , Tremor, Vertigo, Weakness, Other Visual Disturbances - Psychiatric Psychiatric: As Per HPI. absent: Abnormal Sleep Pattern, Anhedonia, Anxiety, Auditory Hallucinations, Behavioral Changes, Change in Appetite, Change in Libido, Confusion, Depression, Difficulty Concentrating, Hallucinations, Homicidal Ideation, Hopelessness, Irritability, Memory Loss, Mood Swings, Panic Attacks, Paranoia, Suicidal Ideation, Visual Hallucinations, Tactile Hallucinations, Other - Endocrine Endocrine: As Per HPI. absent: Change in Body Appearance, Change in Libido, Cold Intolorance, Deepening of Voice, Excessive Sweating, Fatigue, Flushing, Heat Intolorance, Increase in Ring/Shoe/Hat Size, Palpitations, Polydipsia, Polyphagia, Polyuria, Other - Hematologic/Lymphatic Hematologic: As Per HPI. absent: Easy Bleeding, Easy Bruising, Lymphadenopathy , Other Past Patient History - Past Medical History & Family History Past Medical History?: Yes - Past Social History Smoking Status: Never Smoked - CARDIAC Hx Cardiac Disorders: Yes Hx Hypertension: Yes Hx Pacemaker: No - PULMONARY Hx Respiratory Disorders: No - NEUROLOGICAL Hx Paralysis: No - HEENT Hx HEENT Problems: No - RENAL Hx Chronic Kidney Disease: No - ENDOCRINE/METABOLIC Hx Endocrine Disorders: No - HEMATOLOGICAL/ONCOLOGICAL Hx Blood Transfusions: No Hx Blood Transfusion Reaction: No - INTEGUMENTARY Hx Dermatological Problems: No - MUSCULOSKELETAL/RHEUMATOLOGICAL Hx Musculoskeletal Disorders: Yes (SPINAL CORD INJURY) - GASTROINTESTINAL Hx Gastrointestinal Disorders: No - GENITOURINARY/GYNECOLOGICAL Hx Genitourinary Disorders: Yes Hx Urinary Tract Infection: Yes (2/2 urinary retention ) - PSYCHIATRIC Hx Emotional Abuse: No Hx Physical Abuse: No Hx Substance Use: No - SURGICAL HISTORY Hx Musculoskeletal Surgery: Yes (spinal column surgery) - ANESTHESIA Hx Anesthesia: Yes Hx Anesthesia Reactions: No Hx Malignant Hyperthermia: No Meds Allergies/Adverse Reactions: Allergies Allergy/AdvReac Type Severity Reaction Status Date / Time diatrizoate sodium Allergy Intermediate VERIFY ON Verified 06/01/17 09:50 [From Hypaque] ADM - Medications Medications: Current Medications Acetaminophen (Tylenol 325mg Tab) 650 mg PO Q8 PRN PRN Reason: Fever >100.4 F Acyclovir (Zovirax 5% Oint) 1 applic EXT Q3 [facility] Last Admin: 03/28/18 16:53 Dose: 1 applic Acyclovir (Zovirax) 800 mg PO TID [facility] PRN Reason: Protocol Last Admin: 03/28/18 13:55 Dose: 800 mg Albuterol/Ipratropium (Duoneb 3 Mg/0.5 Mg (3 Ml) Ud) 3 ml INH RQID [facility] Last Admin: 03/28/18 15:08 Dose: 3 ml Guaifenesin (Robitussin) 200 mg PO Q4 PRN PRN Reason: Cough Last Admin: 03/27/18 20:57 Dose: 200 mg Hydromorphone HCl (Dilaudid) 0.5 mg IVP Q4 PRN PRN Reason: Pain, moderate (4-7) Meropenem 1 gm/ Sodium (Chloride) 100 mls @ 100 mls/hr IVPB Q8 [facility] PRN Reason: Protocol Last Admin: 03/28/18 16:45 Dose: 100 mls/hr Vancomycin HCl 1 gm/ Sodium (Chloride) 250 mls @ 166.667 mls/hr IVPB DAILY [facility] PRN Reason: Protocol Last Admin: 03/28/18 09:31 Dose: 166.667 mls/hr Ondansetron HCl (Zofran Inj) 4 mg IVP Q6 PRN PRN Reason: Nausea/Vomiting Pantoprazole Sodium (Protonix Ec Tab) 40 mg PO DAILY [facility] Last Admin: 03/28/18 09:23 Dose: 40 mg Saliva Substitute (First Magic Mouthwash) 5 ml PO Q6 [facility] Last Admin: 03/28/18 16:45 Dose: 5 ml Physical Exam - Constitutional Appears: Non-toxic - Head Exam Head Exam: ATRAUMATIC, NORMAL INSPECTION, NORMOCEPHALIC - Eye Exam Eye Exam: EOMI, Normal appearance, PERRL. absent: Conjunctival injection, Nystagmus, Periorbital swelling, Periorbital tenderness, Scleral icterus Pupil Exam: NORMAL ACCOMODATION, PERRL - ENT Exam ENT Exam: Mucous Membranes Moist, Normal Exam. absent: Mucous Membranes Dry, Normal External Ear Exam, Normal Oropharynx, TM's Normal Bilaterally - Neck Exam Neck exam: Positive for: Normal Inspection. Negative for: Full Rom, Lymphadenopathy, Meningismus, Tenderness, Thyromegaly - Respiratory Exam Respiratory Exam: Clear to Auscultation Bilateral, NORMAL BREATHING PATTERN. absent: Accessory Muscle Use, Chest Wall Tenderness, Decreased Breath Sounds, Prolonged Expiratory Phase, Rales, Rhonchi, Wheezes, Respiratory Distress, Stridor - Cardiovascular Exam Cardiovascular Exam: REGULAR RHYTHM, +S1, +S2, Systolic Murmur. absent: Bradycardia, Tachycardia, Clicks, Diastolic murmur, Gallop, Irregular Rhythm, JVD, RRR, Rubs, +S4 - GI/Abdominal Exam GI & Abdominal Exam: Normal Bowel Sounds, Soft. absent: Bruit, Diminished Bowel Sounds, Distended, Firm, Guarding, Hernia, Hyperactive Bowel Sounds, Hypoactive Bowel Sounds, Mass, Organomegaly, Pulsatile Mass, Rebound, Rigid, Tenderness - Rectal Exam Rectal Exam: Deferred - Extremities Exam Extremities exam: Positive for: normal inspection - Back Exam Back exam: NORMAL INSPECTION. absent: CVA tenderness (L), CVA tenderness (R), FULL ROM, muscle spasm, paraspinal tenderness, rash noted, tenderness, vertebral tenderness - Neurological Exam Neurological exam: Alert, CN II-XII Intact, Oriented x3, Reflexes Normal Additional comments: PARAPLEGIA - Psychiatric Exam Psychiatric exam: Normal Affect, Normal Mood - Skin Skin Exam: Dry, Intact, Normal Color, Warm Results - Vital Signs Recent Vital Signs: Last Vital Signs Temp 97.9 F 03/28/18 16:00 Pulse 82 03/28/18 16:00 Resp 26 H 03/28/18 16:00 BP 109/65 03/28/18 16:00 Pulse Ox 99 03/28/18 16:00 - Labs Result Diagrams: 03/29/18 04:20 03/29/18 04:20 Labs: Laboratory Results - last 24 hr 03/28/18 03/28/18 04:20 04:20 WBC 13.3 H RBC 3.53 L Hgb 10.9 L Hct 32.7 L MCV 92.4 MCH 31.0 MCHC 33.5 RDW 14.4 Plt Count 118 L Sodium 136 Potassium 4.3 Chloride 104 Carbon Dioxide 26 Anion Gap 10 BUN 21 H Creatinine 0.6 L Est GFR ( Amer) > 60 Est GFR (Non-Af Amer) > 60 Random Glucose 121 H Calcium 8.3 L Assessment & Plan (1) Cholangitis Status: Acute Priority: High (2) Cholecystitis Status: Acute Priority: High (3) Dyslipidemia Status: Acute (4) HTN (hypertension) Status: Acute (5) Hx of coronary artery disease Status: Acute (6) Sepsis Status: Acute - Assessment and Plan (Free Text) Plan: RESTART METOPROLOL, ASA, PLAVIX. START ATORVASTATIN OUTPT, GIVEN LFT BUMP. MAY DOWNGRADE TO TELE.
--- NOTE | 2018-03-28 17:13 | CP.PCM.PN ---
Subjective - Date & Time of Evaluation Date of Evaluation: 03/28/18 Time of Evaluation: 11:30 - Subjective Subjective: Patient seen and examined bedside. Sitting on the side of the bed , feeling better, tolerating diet, denies any abdominal pain , nausea, vomiting Still with spells of dry cough , unable to expectorate. Denies any chest pain or SOB. Complains of mouth sores Hemodynamically stable, afebrile, passing flatus WBC 13.3 Hgb 10.9 Drain to RUQ with 175 ml bilious output last 24 hours I/O 1324/5125 Objective - Vital Signs/Intake and Output Vital Signs (last 24 hours): Temp Pulse Resp BP Pulse Ox 97.9 F 82 26 H 109/65 99 03/28/18 16:00 03/28/18 16:00 03/28/18 16:00 03/28/18 16:00 03/28/18 16:00 Intake and Output: 03/28/18 03/28/18 06:59 18:59 Intake Total 154 500 Output Total 1275 Balance -1121 500 - Medications Medications: Current Medications Acetaminophen (Tylenol 325mg Tab) 650 mg PO Q8 PRN PRN Reason: Fever >100.4 F Acyclovir (Zovirax 5% Oint) 1 applic EXT Q3 [facility] Last Admin: 03/28/18 16:53 Dose: 1 applic Acyclovir (Zovirax) 800 mg PO TID [facility] PRN Reason: Protocol Last Admin: 03/28/18 13:55 Dose: 800 mg Albuterol/Ipratropium (Duoneb 3 Mg/0.5 Mg (3 Ml) Ud) 3 ml INH RQID [facility] Last Admin: 03/28/18 15:08 Dose: 3 ml Guaifenesin (Robitussin) 200 mg PO Q4 PRN PRN Reason: Cough Last Admin: 03/27/18 20:57 Dose: 200 mg Hydromorphone HCl (Dilaudid) 0.5 mg IVP Q4 PRN PRN Reason: Pain, moderate (4-7) Meropenem 1 gm/ Sodium (Chloride) 100 mls @ 100 mls/hr IVPB Q8 [facility] PRN Reason: Protocol Last Admin: 03/28/18 16:45 Dose: 100 mls/hr Vancomycin HCl 1 gm/ Sodium (Chloride) 250 mls @ 166.667 mls/hr IVPB DAILY [facility] PRN Reason: Protocol Last Admin: 03/28/18 09:31 Dose: 166.667 mls/hr Ondansetron HCl (Zofran Inj) 4 mg IVP Q6 PRN PRN Reason: Nausea/Vomiting Pantoprazole Sodium (Protonix Ec Tab) 40 mg PO DAILY [facility] Last Admin: 03/28/18 09:23 Dose: 40 mg Saliva Substitute (First Magic Mouthwash) 5 ml PO Q6 [facility] Last Admin: 03/28/18 16:45 Dose: 5 ml - Labs Labs: 03/28/18 04:20 03/28/18 04:20 PT 14.7 Seconds (9.8-13.1) H 03/23/18 10:40 INR 1.3 03/23/18 10:40 - Constitutional Appears: Non-toxic, No Acute Distress - Head Exam Head Exam: ATRAUMATIC, NORMOCEPHALIC - ENT Exam ENT Exam: Mucous Membranes Dry Additional comments: dry cracked lips with vesicular lesions - Neck Exam Neck Exam: Normal Inspection - Respiratory Exam Respiratory Exam: Decreased Breath Sounds (bibasilar with rales), NORMAL BREATHING PATTERN. absent: Rhonchi, Wheezes, Respiratory Distress - Cardiovascular Exam Cardiovascular Exam: REGULAR RHYTHM, RRR, +S1, +S2. absent: JVD - GI/Abdominal Exam GI & Abdominal Exam: Soft, Normal Bowel Sounds. absent: Distended, Guarding, Tenderness, Rebound Additional comments: Drain to RUQ with bilious output - Rectal Exam Rectal Exam: Deferred - Exam Exam: Scrotal Swelling - Extremities Exam Extremities Exam: Full ROM, Normal Capillary Refill, Normal Inspection. 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 At present clinically stable, WBC trending down 13 K LFT-s trending down, tolerating diet, clinically improving With persistent dry cough . Diuresed well. 1.Septic Shock secondary to Acute Cholangitis and Acute Cholecystitis-- due to E. Coli and enterococcus faecalis infection Clinically improving Off pressors, afebrile, WBC 13K cholecystostomy tube in place ( placed 8 days ago ,with bilious output 175 ml last 24 hours ) blood and bile cultures + EColi, E. Faecalis on Merrem 1 and Vancomycin Iv for 1 week . Repeat blood cultures with no growth GI and Surgery evaluations appreciated. s/p ERCP 03/24 that was not successful Tolerating diet. Cleared by surgery and GI for d/c with follow up cholecystectomy in 6 weeks Keep drain to RUQ Will discuss with Id about oral PO antibiotics .Will d/c PICC line before discharge Started PT . Patient and family prefer to go home with home PT 2.CAD,HLD holding Plavix no heparin for DVT 2/2 thrombocytopenia cardiology consulted and restarted Metoprolol . Monitor BP since is on the low side. Can resume ASa on discharge since Plt improving 3.Thrombocytopenia possibly secondary to meds vs sequestration vs sepsis no bleeding improving can resume ASA upon discharge 4. Mild anemia Stable Hgb 10.9 5. Anasarca with scrotal edema , lower ext and upper extremity edema and bilateral pleural effusion that are improving with diuretics CXR showed bilateral pleural effusion Given 40 mg lasix 03/26 and 03/27 and diuresed 4 l and 7 l .Hold diuresis today 6. Bilateral pleural effusion CXR showed bilateral pleural effusion . Unclear if there is underlying atelectasis or infiltrate Repeat CXR showed improved bilateral effusion and congestion d/c IVF Continue Meropenem and Vancomycin Incentive spirometry Started Quita Yun RTC 7. Perioral Herpetic lesions started acyclovir topical and oral 8. DVT prophylaxis SCD
[2018-03-28] MEDS: guaiFENesin 200 mg/10 ml Syrup UD PO PRN (21:07)
[2018-03-29] MEDS: Meropenem 1 GM in Sodium Chloride 0.9% 100 ML IVPB SCH ×3 (00:25→17:30)
[2018-03-29] MEDS: Acyclovir 5% OINT 15 APPLIC/15 GM EXT SCH ×8 (00:27→21:25)
[2018-03-29] MEDS: Mag&Al/Simet/Diphen/Lido 237 ML KIT PO SCH ×4 (03:15→21:24)
[2018-03-29 05:49] LABS: BASO # 0.1 K/uL (0.0-0.2); BASO % 0.8 % (0.0-2.0); EOS # 0.8 K/uL (0.0-0.7); EOS % 7.5 % (0.0-4.0); HEMOGLOBIN 10.7 g/dL (12.0-18.0); LYMPH # 2.2 K/uL (1.0-4.3); LYMPH % 21.8 % (20.0-40.0); MEAN CELL VOLUME 92.7 fl (80.0-94.0); MEAN CORPUSCULAR HEMOGLOBIN 31.1 pg (27.0-31.0); MEAN CORPUSCULAR HGB CONC 33.6 g/dL (33.0-37.0); MEAN PLATELET VOLUME 10.7 fl (7.2-11.7); MONO # 0.7 K/uL (0.0-0.8); MONO % 6.9 % (0.0-10.0); NEUT # 6.4 K/uL (1.8-7.0); RBC 3.43 Mil/uL (4.40-5.90); WHITE BLOOD COUNT 10.2 K/uL (4.8-10.8)
[2018-03-29 06:43] LABS: ALB/GLOB RATIO 0.9 (1.0-2.1); ALBUMIN 2.5 g/dL (3.5-5.0); ALT/SGPT 71 U/L (21-72); AST/SGOT 36 U/L (17-59); BILIRUBIN,DIRECT 0.3 mg/ml (0.0-0.4); BLOOD UREA NITROGEN 19 mg/dl (9-20); CALCIUM 8.4 mg/dL (8.4-10.2); GFR NON-AFRICAN AMERICAN > 60
[2018-03-29] MEDS: Albuterol-Ipratrop 3 mg / 0.5 (3 ml) UD INH SCH ×4 (07:46→19:39)
[2018-03-29] MEDS: Pantoprazole 40 mg EC Tab PO SCH (08:41)
[2018-03-29] MEDS ORDERED: Chlorhexidine Gluconate 1 APPL/PKT TP ONE (12:28)
--- NOTE | 2018-03-29 13:18 | CP.PCM.PN ---
Subjective - Date & Time of Evaluation Date of Evaluation: 03/29/18 Time of Evaluation: 13:18 - Subjective Subjective: NO NEW COMPLAINTS. HR AND BP STABLE. Objective - Vital Signs/Intake and Output Vital Signs (last 24 hours): Temp Pulse Resp BP Pulse Ox 98.2 F 75 18 103/58 L 95 03/29/18 12:00 03/29/18 08:41 03/29/18 08:00 03/29/18 08:41 03/29/18 08:00 Intake and Output: 03/29/18 03/29/18 06:59 18:59 Intake Total 250 600 Output Total 290 Balance -40 600 - Medications Medications: Current Medications Acetaminophen (Tylenol 325mg Tab) 650 mg PO Q8 PRN PRN Reason: Fever >100.4 F Acyclovir (Zovirax 5% Oint) 1 applic EXT Q3 [facility] Last Admin: 03/29/18 10:24 Dose: 1 applic Acyclovir (Zovirax) 800 mg PO TID [facility] PRN Reason: Protocol Last Admin: 03/29/18 08:43 Dose: 800 mg Albuterol/Ipratropium (Duoneb 3 Mg/0.5 Mg (3 Ml) Ud) 3 ml INH RQID [facility] Last Admin: 03/29/18 12:03 Dose: 3 ml Aspirin (Aspirin Chewable) 81 mg PO DAILY [facility] Last Admin: 03/29/18 08:44 Dose: 81 mg Guaifenesin (Robitussin) 200 mg PO Q4 PRN PRN Reason: Cough Last Admin: 03/28/18 21:07 Dose: 200 mg Hydromorphone HCl (Dilaudid) 0.5 mg IVP Q4 PRN PRN Reason: Pain, moderate (4-7) Meropenem 1 gm/ Sodium (Chloride) 100 mls @ 100 mls/hr IVPB Q8 [facility] PRN Reason: Protocol Last Admin: 03/29/18 08:44 Dose: 100 mls/hr Vancomycin HCl 1 gm/ Sodium (Chloride) 250 mls @ 166.667 mls/hr IVPB DAILY [facility] PRN Reason: Protocol Last Admin: 03/29/18 08:43 Dose: 166.667 mls/hr Metoprolol Tartrate (Lopressor) 25 mg PO Q12 [facility] Last Admin: 03/29/18 08:41 Dose: 25 mg Ondansetron HCl (Zofran Inj) 4 mg IVP Q6 PRN PRN Reason: Nausea/Vomiting Pantoprazole Sodium (Protonix Ec Tab) 40 mg PO DAILY [facility] Last Admin: 03/29/18 08:41 Dose: 40 mg Saliva Substitute (First Magic Mouthwash) 5 ml PO Q6 [facility] Last Admin: 03/29/18 10:25 Dose: 5 ml - Labs Labs: 03/29/18 04:20 03/29/18 04:20 PT 14.7 Seconds (9.8-13.1) H 03/23/18 10:40 INR 1.3 03/23/18 10:40 - Constitutional Appears: Non-toxic - Head Exam Head Exam: ATRAUMATIC, NORMAL INSPECTION, NORMOCEPHALIC - Eye Exam Eye Exam: EOMI, Normal appearance, PERRL. absent: Conjunctival injection, Nystagmus, Periorbital swelling, Periorbital tenderness, Scleral icterus Pupil Exam: NORMAL ACCOMODATION, PERRL - ENT Exam ENT Exam: Mucous Membranes Moist, Normal Exam. absent: Mucous Membranes Dry, Normal External Ear Exam, Normal Oropharynx, TM's Normal Bilaterally - Neck Exam Neck Exam: Full ROM, Normal Inspection. absent: Lymphadenopathy, Meningismus, Tenderness, Thyromegaly - Respiratory Exam Respiratory Exam: Clear to Ausculation Bilateral, Rhonchi, NORMAL BREATHING PATTERN. absent: Accessory Muscle Use, Chest Wall Tenderness, Decreased Breath Sounds, Prolonged Expiratory Phase, Rales, Wheezes, Respiratory Distress, Stridor - Cardiovascular Exam Cardiovascular Exam: REGULAR RHYTHM, +S1, +S2, Murmur. absent: Bradycardia, Tachycardia, Clicks, Diastolic murmur, Gallop, Irregular Rhythm, JVD, RRR, Rubs , +S4 - GI/Abdominal Exam GI & Abdominal Exam: Soft, Normal Bowel Sounds. absent: Bruit, Distended, Firm , Guarding, Rigid, Tenderness, Diminished Bowel Sounds, Hernia, Hyperactive Bowel Sounds, Hypoactive Bowel Sounds, Organomegaly, Pulsatile Mass, Rebound, Mass - Rectal Exam Rectal Exam: Deferred - Extremities Exam Extremities Exam: Full ROM, Normal Capillary Refill, Normal Inspection, Pedal Edema. absent: Calf Tenderness, Joint Swelling, Tenderness - Back Exam Back Exam: NORMAL INSPECTION. absent: CVA tenderness (L), CVA tenderness (R), Full ROM, muscle spasm, paraspinal tenderness, rash noted, tenderness, vertebral tenderness - Neurological Exam Neurological Exam: Alert, Awake, CN II-XII Intact, Oriented x3 - Psychiatric Exam Psychiatric exam: Normal Affect, Normal Mood. absent: Agitated, Anxious, Depressed, Flat Affect, Homicidal Ideation, Manic, Suicidal Ideation - Skin Skin Exam: Dry, Intact, Normal Color, Warm. absent: Abrasion, Cyanosis, Diaphoretic, Erythema, Mottled, Pallor, Pallor, Petechiae, Rash, Urticaria, Vesicles Assessment and Plan (1) Hx of coronary artery disease Status: Acute (2) HTN (hypertension) Status: Acute (3) Dyslipidemia Status: Acute (4) Cholangitis Status: Acute (5) Sepsis Status: Acute - Assessment and Plan (Free Text) Plan: PT DOING WELL ON HIS HOME MEDS. STATIN HELD DUE TO LFTS.
--- NOTE | 2018-03-29 14:39 | VASCULAR ---
PROCEDURE: Date of procedure: 03/27/2018 Procedure: 1. Placement of a right arm PICC with ultrasound and fluoroscopic guidance, CPT 15601 2. PICC tip confirmation with spot radiograph and is in the superior vena cava Medications: 1 percent lidocaine Total Fluoro time: 5.2 seconds Radiation: 0.77 MGy EBL: 2 cc HISTORY: Infection requiring long-term IV antibiotics TECHNIQUE: Following informed consent and procedure time-out, the patient was placed supine on the interventional table and the right arm prepped and draped in the usual sterile fashion. Ultrasound showed a patent and compressible right basilic vein. After the skin was anesthetized with lidocaine, the basilic vein was accessed with micro micropuncture technique using ultrasound guidance. A guidewire was then advanced under fluoroscopic guidance into the superior vena cava. An image documenting ultrasound guidance for vascular access was permanently saved. The length of the single-lumen 4 Malagasy PICC was trimmed to 33 centimeters and advanced through a peel-away sheath. The PICC was position with tip of PICC confirm a spot radiograph the superior vena cava. The PICC was secured to the patient's skin. The PICC was flushed. A biopatch and sterile dressing was applied. IMPRESSION: Placement of a single-lumen 4 Malagasy PICC trimmed to 33 centimeters via right basilic vein. The tip of the PICC is confirmed with spot radiograph and is in the superior vena cava.
--- NOTE | 2018-03-29 17:00 | CT ---
Date of service: 03/29/2018 PROCEDURE: CT Chest without contrast HISTORY: pleural effusion COMPARISON: None available. TECHNIQUE: Contiguous axial images were obtained through the chest without intravenous contrast enhancement. Sagittal and coronal reconstructions were performed. Radiation dose (DLP): 456 mGy-cm. This CT exam was performed using one or more of the following dose reduction techniques: Automated exposure control, adjustment of the mA and/or kV according to patient size, and/or use of iterative reconstruction technique. FINDINGS: LUNGS: Bilateral pleural effusions with passive compressive atelectatic changes are present. Subpleural septal lines are present. An element of intrinsic interstitial lung disease is suspect. Concomitant mild bronchiectatic changes also suspect at both bases posteriorly. A 5 mm solid-appearing nodule borders the left fissure continued surveillance of it is recommended. A 5 mm solid-appearing nodule fairly smooth appear in the lingula overseas axis series 3, image 68 also noted. And a left perifissural soft/left lateral pleural surface sub cm nodule probably 3 to 4 mm is also present. ([place] series 3, image 68. MEDIASTINUM: Calcified non aneurysmal thoracic aorta Mild cardiomegaly. No pericardial fusion. Coronary artery calcifications present. Main pulmonary artery unremarkable. Central pulmonary venous trace congestion possible. Few shotty benign-appearing mediastinal lymph nodes. No l suspicious-appearing ymphadenopathy. PLEURA: Bilateral pleural effusions dependent with compressive atelectasis. No gross pneumothorax. BONES: Thoracic spondylosis and the Yadav rods noted. No gross disruption appreciated. No gross fracture seen. Exuberant right sternoclavicular hypertrophic arthrosis. UPPER ABDOMEN: History of prior cholecystectomy. An apparent drainage tube in the right gallbladder fossa noted. Correlate clinically Moderate stool retention Bilateral intra and extra renal pelviectasis -right greater than left. The chronicity of this hydronephrosis is unknown. Most of the dilatation appears intra and extra renal rather than affecting the calices. Parts of the kidneys however are visualized. Clinical correlation is recommended. OTHER FINDINGS: None. IMPRESSION: Bilateral pleural effusions with compressive atelectatic changes as referenced above. Intrinsic interstitial lung disease also suspect. Possible central pulmonary trace venous congestion. Mild cardiomegaly. No pericardial effusion. Coronary artery disease. Prior cholecystectomy with apparent drainage tube here. No gross significant collections here appreciated. Bordering this is a new right colon with prominent stool contents. Correlate clinically with catheter insertion here. Bilateral intra and extra renal pelviectasis -of unknown chronicity.
--- NOTE | 2018-03-29 17:37 | CP.PCM.PN ---
Subjective - Date & Time of Evaluation Date of Evaluation: 03/29/18 Time of Evaluation: 10:00 - Subjective Subjective: Patient was seen and bedside. Still feeling weak but tolerating diet. No abdominal pain, nausea, vomiting. Complaining of some intermittent sob but no cp Downgraded to telemetry today WBC 10.2, Hg 10.7 Improving. Objective - Vital Signs/Intake and Output Vital Signs (last 24 hours): Temp Pulse Resp BP Pulse Ox 98.2 F 67 19 117/56 L 97 03/29/18 16:47 03/29/18 16:47 03/29/18 16:47 03/29/18 16:47 03/29/18 16:47 Intake and Output: 03/29/18 03/29/18 06:59 18:59 Intake Total 250 750 Output Total 290 Balance -40 750 - Medications Medications: Current Medications Acetaminophen (Tylenol 325mg Tab) 650 mg PO Q8 PRN PRN Reason: Fever >100.4 F Acyclovir (Zovirax 5% Oint) 1 applic EXT Q3 [facility] Last Admin: 03/29/18 10:24 Dose: 1 applic Acyclovir (Zovirax) 800 mg PO TID [facility] PRN Reason: Protocol Last Admin: 03/29/18 13:27 Dose: 800 mg Albuterol/Ipratropium (Duoneb 3 Mg/0.5 Mg (3 Ml) Ud) 3 ml INH RQID [facility] Last Admin: 03/29/18 15:31 Dose: 3 ml Aspirin (Aspirin Chewable) 81 mg PO DAILY [facility] Last Admin: 03/29/18 08:44 Dose: 81 mg Guaifenesin (Robitussin) 200 mg PO Q4 PRN PRN Reason: Cough Last Admin: 03/28/18 21:07 Dose: 200 mg Hydromorphone HCl (Dilaudid) 0.5 mg IVP Q4 PRN PRN Reason: Pain, moderate (4-7) Meropenem 1 gm/ Sodium (Chloride) 100 mls @ 100 mls/hr IVPB Q8 [facility] PRN Reason: Protocol Last Admin: 03/29/18 08:44 Dose: 100 mls/hr Vancomycin HCl 1 gm/ Sodium (Chloride) 250 mls @ 166.667 mls/hr IVPB DAILY [facility] PRN Reason: Protocol Last Admin: 03/29/18 08:43 Dose: 166.667 mls/hr Metoprolol Tartrate (Lopressor) 25 mg PO Q12 [facility] Last Admin: 03/29/18 08:41 Dose: 25 mg Ondansetron HCl (Zofran Inj) 4 mg IVP Q6 PRN PRN Reason: Nausea/Vomiting Pantoprazole Sodium (Protonix Ec Tab) 40 mg PO DAILY [facility] Last Admin: 03/29/18 08:41 Dose: 40 mg Saliva Substitute (First Magic Mouthwash) 5 ml PO Q6 [facility] Last Admin: 03/29/18 10:25 Dose: 5 ml - Labs Labs: 03/29/18 04:20 03/29/18 04:20 PT 14.7 Seconds (9.8-13.1) H 03/23/18 10:40 INR 1.3 03/23/18 10:40 - Additional Findings Additional findings: Physical exam: Constitutional- cooperative, awake, alert Head- NCAT, PERRL Eye- PERRL, EOMI ENT- normal exam, MMM. 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 At present clinically stable, WBC trending down 13 K LFT-s trending down, tolerating diet, clinically improving With persistent dry cough . Diuresed well. 1.Septic Shock secondary to Acute Cholangitis and Acute Cholecystitis-- due to E. Coli and enterococcus faecalis infection Clinically improving Off pressors, afebrile, WBC 13K cholecystostomy tube in place ( placed 8 days ago ,with bilious output 175 ml last 24 hours ) blood and bile cultures + EColi, E. Faecalis on Merrem 1 and Vancomycin Iv for 1 week . Repeat blood cultures with no growth GI and Surgery evaluations appreciated. s/p ERCP 03/24 that was not successful Tolerating diet. Cleared by surgery and GI for d/c with follow up cholecystectomy in 6 weeks Keep drain to RUQ As per Dr. Almaraz- patient will need IV Merrem and Vancomycin a total of 14 days Started PT . Possible discharge tomorrow to TCU as home is likely not an option due to IV antibiotics 2.CAD,HLD holding Plavix no heparin for DVT 2/2 thrombocytopenia cardiology consulted and restarted Metoprolol . Monitor BP since is on the low side. Can resume ASa on discharge since Plt improving 3.Thrombocytopenia possibly secondary to meds vs sequestration vs sepsis no bleeding improving can resume ASA upon discharge 4. Mild anemia Stable Hgb 10.9 5. Anasarca with scrotal edema , lower ext and upper extremity edema and bilateral pleural effusion that are improving with diuretics CXR showed bilateral pleural effusion Given 40 mg lasix 03/26 and 03/27 and diuresed 4 l and 7 l. Hold diuresis today 6. Bilateral pleural effusion CXR showed bilateral pleural effusion . Unclear if there is underlying atelectasis or infiltrate Repeat CXR showed improved bilateral effusion and congestion d/c IVF Continue Meropenem and Vancomycin Incentive spirometry Started Quita Yun RTC 7. Perioral Herpetic lesions started acyclovir topical and oral 8. DVT prophylaxis SCD
--- NOTE | 2018-03-29 18:02 | CP.PCM.PN ---
Subjective - Date & Time of Evaluation Date of Evaluation: 03/29/18 Time of Evaluation: 08:00 - Subjective Subjective: awake alert oriented family at bedside oral lesions healing Objective - Vital Signs/Intake and Output Vital Signs (last 24 hours): Temp Pulse Resp BP Pulse Ox 98.2 F 67 19 117/56 L 97 03/29/18 16:47 03/29/18 16:47 03/29/18 16:47 03/29/18 16:47 03/29/18 16:47 Intake and Output: 03/29/18 03/29/18 06:59 18:59 Intake Total 250 750 Output Total 290 Balance -40 750 - Medications Medications: Current Medications Acetaminophen (Tylenol 325mg Tab) 650 mg PO Q8 PRN PRN Reason: Fever >100.4 F Acyclovir (Zovirax 5% Oint) 1 applic EXT Q3 [facility] Last Admin: 03/29/18 17:32 Dose: 1 applic Acyclovir (Zovirax) 800 mg PO TID [facility] PRN Reason: Protocol Last Admin: 03/29/18 17:31 Dose: 800 mg Albuterol/Ipratropium (Duoneb 3 Mg/0.5 Mg (3 Ml) Ud) 3 ml INH RQID [facility] Last Admin: 03/29/18 15:31 Dose: 3 ml Aspirin (Aspirin Chewable) 81 mg PO DAILY [facility] Last Admin: 03/29/18 08:44 Dose: 81 mg Guaifenesin (Robitussin) 200 mg PO Q4 PRN PRN Reason: Cough Last Admin: 03/28/18 21:07 Dose: 200 mg Hydromorphone HCl (Dilaudid) 0.5 mg IVP Q4 PRN PRN Reason: Pain, moderate (4-7) Meropenem 1 gm/ Sodium (Chloride) 100 mls @ 100 mls/hr IVPB Q8 [facility] PRN Reason: Protocol Last Admin: 03/29/18 17:30 Dose: 100 mls/hr Vancomycin HCl 1 gm/ Sodium (Chloride) 250 mls @ 166.667 mls/hr IVPB DAILY [facility] PRN Reason: Protocol Last Admin: 03/29/18 08:43 Dose: 166.667 mls/hr Metoprolol Tartrate (Lopressor) 25 mg PO Q12 [facility] Last Admin: 03/29/18 08:41 Dose: 25 mg Ondansetron HCl (Zofran Inj) 4 mg IVP Q6 PRN PRN Reason: Nausea/Vomiting Pantoprazole Sodium (Protonix Ec Tab) 40 mg PO DAILY [facility] Last Admin: 03/29/18 08:41 Dose: 40 mg Saliva Substitute (First Magic Mouthwash) 5 ml PO Q6 [facility] Last Admin: 03/29/18 10:25 Dose: 5 ml - Labs Labs: 03/29/18 04:20 03/29/18 04:20 PT 14.7 Seconds (9.8-13.1) H 03/23/18 10:40 INR 1.3 03/23/18 10:40 - Constitutional Appears: Non-toxic, Chronically Ill - Head Exam Head Exam: NORMOCEPHALIC - Eye Exam Eye Exam: PERRL. absent: Scleral icterus - ENT Exam ENT Exam: Mucous Membranes Dry - Neck Exam Neck Exam: absent: Lymphadenopathy - Respiratory Exam Respiratory Exam: Decreased Breath Sounds - Cardiovascular Exam Cardiovascular Exam: REGULAR RHYTHM - GI/Abdominal Exam GI & Abdominal Exam: Distended, Soft. absent: Tenderness Additional comments: RUQ cholesystostomy tube in situ / + drainage bile colored - Rectal Exam Rectal Exam: Deferred - Exam Exam: NORMAL INSPECTION - Extremities Exam Extremities Exam: absent: Pedal Edema - Back Exam Back Exam: absent: CVA tenderness (L), CVA tenderness (R), paraspinal tenderness - Neurological Exam Neurological Exam: Alert, Awake, Oriented x3 Neuro motor strength exam: Left Upper Extremity: 5, Right Upper Extremity: 5, Left Lower Extremity: 5, Right Lower Extremity: 5 - Psychiatric Exam Psychiatric exam: Depressed - Skin Skin Exam: Dry Assessment and Plan (1) Cholangitis Status: Acute (2) Cholecystitis Status: Acute (3) Septic shock Status: Acute (4) Sepsis Status: Acute - Assessment and Plan (Free Text) Assessment: s/p septic shock ascending cholangitis cont antibiotics for total 14 days
[2018-03-30] MEDS: Acyclovir 5% OINT 15 APPLIC/15 GM EXT SCH ×4 (03:00→09:41)
[2018-03-30] MEDS: Mag&Al/Simet/Diphen/Lido 237 ML KIT PO SCH ×2 (03:00→09:36)
[2018-03-30 05:26] VITALS: RESP 18; O2SAT 97
[2018-03-30 05:58] LABS: HEMOGLOBIN 10.4 g/dL (12.0-18.0); MEAN CELL VOLUME 93.3 fl (80.0-94.0); MEAN CORPUSCULAR HEMOGLOBIN 30.6 pg (27.0-31.0); MEAN CORPUSCULAR HGB CONC 32.8 g/dL (33.0-37.0); RBC 3.4 Mil/uL (4.40-5.90)
[2018-03-30 06:12] LABS: ALB/GLOB RATIO 0.9 (1.0-2.1); ALBUMIN 2.6 g/dL (3.5-5.0); ALT/SGPT 68 U/L (21-72); AST/SGOT 31 U/L (17-59); BLOOD UREA NITROGEN 21 mg/dl (9-20); CALCIUM 8.4 mg/dL (8.4-10.2); GFR NON-AFRICAN AMERICAN > 60
[2018-03-30] MEDS: Albuterol-Ipratrop 3 mg / 0.5 (3 ml) UD INH SCH ×2 (07:29→11:03)
[2018-03-30] MEDS: Pantoprazole 40 mg EC Tab PO SCH (09:39)
[2018-03-30] MEDS: Meropenem 1 GM in Sodium Chloride 0.9% 100 ML IVPB SCH ×2 (09:39)
[2018-03-30 09:41] VITALS: BP 100/57; PULSE 75
[2018-03-30 11:56] VITALS: TEMP 98.6
--- NOTE | 2018-03-30 13:21 | CP.PCM.DIS ---
Provider - Provider Date of Admission: 03/22/18 13:51 Attending physician: Alejandra Garcia DO Primary care physician: PMD: Tasia Currie Consults: Dr. Almaraz- ID Dr. Leroy- cardiology Dr. Sellers- GI Dr. Garcia- General surgery Time Spent in preparation of Discharge (in minutes): 15 Hospital Course - Lab Results Lab Results: Micro Results 03/27/18 04:20 Blood-Thru Central Line Blood Culture - Preliminary NO GROWTH AFTER 3 DAYS 03/22/18 19:05 Naris MRSA Culture (Admit) - Final MRSA NOT DETECTED Most Recent Lab Values WBC 11.0 K/uL (4.8-10.8) H 03/30/18 04:20 RBC 3.40 Mil/uL (4.40-5.90) L 03/30/18 04:20 Hgb 10.4 g/dL (12.0-18.0) L 03/30/18 04:20 Hct 31.7 % (35.0-51.0) L 03/30/18 04:20 MCV 93.3 fl (80.0-94.0) 03/30/18 04:20 MCH 30.6 pg (27.0-31.0) 03/30/18 04:20 MCHC 32.8 g/dL (33.0-37.0) L 03/30/18 04:20 RDW 14.0 % (11.5-14.5) 03/30/18 04:20 Plt Count 145 K/uL (130-400) 03/30/18 04:20 MPV 10.7 fl (7.2-11.7) 03/29/18 04:20 Neut % (Auto) 63.0 % (50.0-75.0) 03/29/18 04:20 Lymph % (Auto) 21.8 % (20.0-40.0) 03/29/18 04:20 [place] % (Auto) 6.9 % (0.0-10.0) 03/29/18 04:20 Eos % (Auto) 7.5 % (0.0-4.0) H 03/29/18 04:20 Baso % (Auto) 0.8 % (0.0-2.0) 03/29/18 04:20 Neut # (Auto) 6.4 K/uL (1.8-7.0) 03/29/18 04:20 Lymph # (Auto) 2.2 K/uL (1.0-4.3) 03/29/18 04:20 [place] # (Auto) 0.7 K/uL (0.0-0.8) 03/29/18 04:20 Eos # (Auto) 0.8 K/uL (0.0-0.7) H 03/29/18 04:20 Baso # (Auto) 0.1 K/uL (0.0-0.2) 03/29/18 04:20 Neutrophils % (Manual) 86 % (42-75) H 03/23/18 04:20 Band Neutrophils % 7 % (0-2) H 03/23/18 04:20 Lymphocytes % (Manual) 3 % (20-50) L 03/23/18 04:20 Monocytes % (Manual) 2 % (0-10) 03/23/18 04:20 Eosinophils % (Manual) 1 % (0-7) 03/22/18 19:04 Metamyelocytes % 2 % (0-0) H 03/23/18 04:20 Toxic Granulation Present 03/22/18 19:04 Platelet Estimate Decreased (NORMAL) L 03/23/18 04:20 Polychromasia Slight 03/22/18 19:04 Poikilocytosis (manual Slight 03/22/18 19:04 Anisocytosis (manual) Slight 03/23/18 04:20 Target Cells Slight 03/22/18 19:04 PT 14.7 Seconds (9.8-13.1) H 03/23/18 10:40 INR 1.3 03/23/18 10:40 pO2 43 mm/Hg (30-55) 03/22/18 18:50 VBG pH 7.40 (7.32-7.43) 03/22/18 18:50 VBG pCO2 36 mmHg (40-60) L 03/22/18 18:50 VBG HCO3 22.9 mmol/L 03/22/18 18:50 VBG Total CO2 23.4 mmol/L (22-28) 03/22/18 18:50 VBG O2 Sat (Calc) 58.5 % (40-65) 03/22/18 18:50 VBG Base Excess -2.0 mmol/L (0.0-2.0) L 03/22/18 18:50 VBG Potassium 3.1 mmol/L (3.6-5.2) L 03/22/18 18:50 Sodium 140.0 mmol/L (132-148) 03/22/18 18:50 Chloride 108.0 mmol/L (98-107) H 03/22/18 18:50 Glucose 76 mg/dL (75-110) 03/22/18 18:50 Lactate 2.4 mmol/L (0.7-2.1) H 03/22/18 18:50 FiO2 21.0 % 03/22/18 18:50 Sodium 136 mmol/l (132-148) 03/30/18 04:20 Potassium 4.1 MMOL/L (3.6-5.0) 03/30/18 04:20 Chloride 105 mmol/L (98-107) 03/30/18 04:20 Carbon Dioxide 28 mmol/L (22-30) 03/30/18 04:20 Anion Gap 7 (10-20) L 03/30/18 04:20 BUN 21 mg/dl (9-20) H 03/30/18 04:20 Creatinine 0.6 mg/dl (0.8-1.5) L 03/30/18 04:20 Est GFR ( Amer) > 60 03/30/18 04:20 Est GFR (Non-Af Amer) > 60 03/30/18 04:20 Random Glucose 96 mg/dL (75-110) 03/30/18 04:20 Calcium 8.4 mg/dL (8.4-10.2) 03/30/18 04:20 Phosphorus 2.3 mg/dl (2.5-4.5) L 03/25/18 04:15 Magnesium 1.9 MG/DL (1.6-2.3) 03/25/18 04:15 Total Bilirubin 1.0 mg/dl (0.2-1.3) 03/30/18 04:20 Direct Bilirubin 0.3 mg/ml (0.0-0.4) 03/29/18 04:20 AST 31 U/L (17-59) 03/30/18 04:20 ALT 68 U/L (21-72) 03/30/18 04:20 Alkaline Phosphatase 137 U/L (38-126) H 03/30/18 04:20 Total Protein 5.4 G/DL (6.3-8.2) L 03/30/18 04:20 Albumin 2.6 g/dL (3.5-5.0) L 03/30/18 04:20 Globulin 2.8 gm/dL (2.2-3.9) 03/30/18 04:20 Albumin/Globulin Ratio 0.9 (1.0-2.1) L 03/30/18 04:20 Venous Blood Potassium 3.1 mmol/L (3.6-5.2) L 03/22/18 18:50 Vancomycin Trough 7.5 ug/mL (5.0-10.0) 03/27/18 04:20 Blood Type O POSITIVE 03/23/18 11:14 Blood Type Confirm O POSITIVE 03/23/18 11:38 Antibody Screen Negative 03/23/18 11:14 Crossmatch See Detail 03/23/18 11:14 BBK History Checked No verified bt 03/23/18 11:14 - Hospital Course Hospital Course: 82 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 At present clinically stable, WBC trending down 13 K LFT-s trending down, tolerating diet, clinically improving With persistent dry cough . Diuresed well. Discharging to TCU today for further IV antibiotics and PT/OT 1.Septic Shock secondary to Acute Cholangitis and Acute Cholecystitis-- due to E. Coli and enterococcus faecalis infection Resolved Off pressors, afebrile, WBC 13K cholecystostomy tube in place blood and bile cultures + EColi, E. Faecalis on Merrem 1 and Vancomycin IV . Repeat blood cultures with no growth GI and Surgery evaluations appreciated. s/p ERCP 03/24 that was not successful Tolerating diet. Cleared by surgery and GI for d/c with follow up cholecystectomy in 6 weeks Keep drain to RUQ As per Dr. Almaraz- patient will need IV Merrem and Vancomycin a total of 14 days Started PT . discharge tomorrow TCU as home is likely not an option due to IV antibiotics 2.CAD,HLD holding Plavix no heparin for DVT 2/2 thrombocytopenia cardiology consulted and restarted Metoprolol . Monitor BP since is on the low side. Can resume ASa on discharge since Plt improving 3.Thrombocytopenia possibly secondary to meds vs sequestration vs sepsis no bleeding improving can resume ASA upon discharge 4. Mild anemia Stable Hgb 10.9 5. Anasarca with scrotal edema , lower ext and upper extremity edema and bilateral pleural effusion that are improving with diuretics CXR showed bilateral pleural effusion Given 40 mg lasix 03/26 and 03/27 and diuresed 4 l and 7 l. Hold diuresis today 6. Bilateral pleural effusion CXR showed bilateral pleural effusion . Unclear if there is underlying atelectasis or infiltrate Repeat CXR showed improved bilateral effusion and congestion d/c IVF Continue Meropenem and Vancomycin Incentive spirometry Started [place] Yun RTC 7. Perioral Herpetic lesions started acyclovir topical and oral 8. DVT prophylaxis SCD Discharge Exam - Head Exam Head Exam: ATRAUMATIC, NORMAL INSPECTION, NORMOCEPHALIC - Additional Findings Additional findings: Physical exam: Constitutional- cooperative, awake, alert Head- NCAT, PERRL Eye- PERRL, EOMI ENT- normal exam, MMM. Lips + herpetic lesions Neck- normal inspection, supple, no JVD Respiratory- CTAB, decreased breath sounds with some mild rales at the bases Cardiovascular- RRR, +S1, +S2 no MRG GI/Abdominal- normal bowel sounds, soft, no mass, no hsm Skin- warm, dry Extremities Exam- normal capillary refill, normal inspection Neurological Exam- alert, awake, oriented Psych- normal mood, normal affect Discharge Plan - Discharge Medications Prescriptions: Meropenem IV 1 gm in NS [Merrem IV 1 gm Premix] 1 gm IVPB Q8H 7 Days bag Vancomycin/0.9 % Sod Chloride [Vanco 1 Gram/150 ml-0.9% NaCl] 1 gm IV DAILY 7 Days #7 plast..bag - Follow Up Plan Disposition: TRANSF TO SNF
== END 2018-03-30 12:28 | DRG 871 ==
LOC: H.ICU/CCU 13:51
PROVIDERS: ADMIT Student in an Organized Health Care Education/Training Program; ATTEND Student in an Organized Health Care Education/Training Program
PROC: 6A550Z2 Pheresis of Platelets, Single (ICD-10-PCS; 2018-03-24)
PROC: 0FJB8ZZ Inspection of Hepatobiliary Duct, Via Natural or Artificial Opening Endoscopic (ICD-10-PCS; 2018-03-24)
PROC: 02HV33Z Insertion of Infusion Device into Superior Vena Cava, Percutaneous Approach (ICD-10-PCS; principal; 2018-03-26)
PROC: B518ZZA Fluoroscopy of Superior Vena Cava, Guidance (ICD-10-PCS; 2018-03-26)
PROC: 3E04329 Introduction of Other Anti-infective into Central Vein, Percutaneous Approach (ICD-10-PCS; 2018-03-26)
DX: A41.51 Sepsis due to Escherichia coli [E. coli] (principal); R65.21 Severe sepsis with septic shock; G93.41 Metabolic encephalopathy; K80.33 Calculus of bile duct with acute cholangitis with obstruction; G82.20 Paraplegia, unspecified; B00.89 Other herpesviral infection; J90 Pleural effusion, not elsewhere classified; J98.11 Atelectasis; D69.59 Other secondary thrombocytopenia; D64.9 Anemia, unspecified; N50.89 Other specified disorders of the male genital organs; I25.10 Atherosclerotic heart disease of native coronary artery without angina pectoris; I10 Essential (primary) hypertension; E78.5 Hyperlipidemia, unspecified; Z95.5 Presence of coronary angioplasty implant and graft; F17.200 Nicotine dependence, unspecified, uncomplicated; Z87.440 Personal history of urinary (tract) infections